=== PATIENT | male | born 1935 | race Caucasian/White ===

== ENCOUNTER 2017-01-07 10:52 | Inpatient (IN) | payer MEDICARE ==
[~2017-01-07] VITALS: Ht 172.7 cm; Wt 126.7 kg
[~2017-01-07 10:52] MED LIST: ACET-704 PO; ALBU2.5V14 NEB; ALPR0.5T6 PO; ATOR20TA58 PO; AZAT50TA PO; BISA10SU55 RC; CHOL10003 PO; Enoxaparin Sodium SQ; FINA5TAB4 PO; FURO40TA4 PO; HYDR50TA6 PO; INSU100I13 SQ; INSU100I17 SQ; INSU100I27 SQ; LEVO500T38 PO; LOPE1TAB4 PO; LOSA25TA PO; MAGN400O4 PO; MELO-150 PO; METF-620 PO; METF500T4 PO; MIRT15TA PO; NYST15PO9 TP; OMEP20CA9 PO; POTA10TA31 PO; POTA20TA4 PO; PROVENTIL HFA6.7 GM IH; TAMS0.4C2 PO; TRAM50TA PO; VERA180T49 PO; VERA240C2 PO
--- NOTE | 2017-01-07 11:22 | PHYS DOC ---
Past Medical History Past Medical History: Anxiety, Arthritis, CHF, Depression, Diabetes-Type II, GERD, High Cholesterol, Hypertension, Renal Disease Additional Past Medical Histor: PROSTATE, myasthenia gravis, murmur Past Surgical History: Cholecystectomy, Knee Replacement, Tonsillectomy Alcohol Use: None Drug Use: None Adult General Chief Complaint Chief Complaint: HYPERGLYCEMIA HPI HPI Patient is a 81 year old male presents emergency department by way of EMS. Patient is a residential patient in which they state that he's had an elevated blood sugar for the last week with nausea for the last 3 days. Patient states that he's been incontinent of urine for approximately one year. Patient denies any fever, chills or any nausea or vomiting. Patient does have a history of diabetes congested heart failure, hypertension and renal disease. Review of Systems Review of Systems Constitutional: Denies fever or chills [] Eyes: Denies change in visual acuity, redness, or eye pain [] HENT: Denies nasal congestion or sore throat [] Respiratory: Denies cough or shortness of breath [] Cardiovascular: No additional information not addressed in HPI [] GI: Denies abdominal pain, vomiting, bloody stools or diarrhea. C/o nausea : Denies dysuria or hematuria Musculoskeletal: Denies back pain or joint pain [] Integument: Denies rash or skin lesions [] Neurologic: Denies headache, focal weakness or sensory changes [] Endocrine: polyuria denies polydipsia [] Current Medications Current Medications Current Medications Medications (Trade) Dose Ordered Sig/Wendy Start Time Stop Time Status Last Admin Dose Admin Insulin Human Regular (NovoLIN R VIAL) 10 unit 1X ONCE 01/07/17 12:15 01/07/17 12:16 DC 01/07/17 12:37 10 UNIT Sodium Chloride 500 ml @ 500 mls/hr 1X ONCE 01/07/17 12:00 01/07/17 12:59 DC 01/07/17 12:06 500 MLS/HR Allergies Allergies Allergies Coded Allergies Type Severity Reaction Last Updated Verified Penicillins Allergy Intermediate rash 06/10/15 Yes I S O L A T I O N *CONTACT* Allergy Unknown 11/30/15 Yes Physical Exam Physical Exam Constitutional: Well developed, well nourished, no acute distress, non-toxic appearance. [] HENT: Normocephalic, atraumatic, bilateral external ears normal, oropharynx moist, no oral exudates, nose normal. [] Eyes: PERRLA, EOMI, conjunctiva normal, no discharge. [] Neck: Normal range of motion, no tenderness, supple, no stridor. [] Cardiovascular:Heart rate regular rhythm, no murmur [] Lungs & Thorax: Bilateral breath sounds clear to auscultation [] Abdomen: Bowel sounds hypoactive, soft, no tenderness, no masses, no pulsatile masses. [] Skin: Warm, dry, no erythema, no rash. [] Back: No tenderness Extremities: No tenderness, no cyanosis, no clubbing, ROM intact, no edema. [] Neurologic: Alert and oriented X 3, normal motor function, normal sensory function, no focal deficits noted. [] Psychologic: Affect normal, judgement normal, mood normal. [] Current Patient Data Vital Signs Vital Signs Date Time Temp Pulse Resp B/P (MAP) Pulse Ox O2 Delivery O2 Flow Rate FiO2 01/07/17 10:55 98.1 91 20 132/60 (84) 94 Room Air 98.1 Lab Values Laboratory Tests Test 01/07/17 11:00 01/07/17 11:56 White Blood Count 7.3 x10^3/uL (4.0-11.0) Red Blood Count 3.50 x10^6/uL (4.30-5.70) L Hemoglobin 11.9 g/dL (13.0-17.5) L Hematocrit 34.9 % (39.0-53.0) L Mean Corpuscular Volume 100 fL (79-100) Mean Corpuscular Hemoglobin 34 pg (25-35) Mean Corpuscular Hemoglobin Concent 34 g/dL (31-37) Red Cell Distribution Width 16.2 % (11.5-14.5) H Platelet Count 215 x10^3/uL (140-400) Neutrophils (%) (Auto) 71 % (31-73) Lymphocytes (%) (Auto) 20 % (24-48) L Monocytes (%) (Auto) 6 % (0-9) Eosinophils (%) (Auto) 3 % (0-3) Basophils (%) (Auto) 1 % (0-3) Neutrophils # (Auto) 5.2 x10^3uL (1.8-7.7) Lymphocytes # (Auto) 1.4 x10^3/uL (1.0-4.8) Monocytes # (Auto) 0.4 x10^3/uL (0.0-1.1) Eosinophils # (Auto) 0.2 x10^3/uL (0.0-0.7) Basophils # (Auto) 0.1 x10^3/uL (0.0-0.2) Sodium Level 135 mmol/L (136-145) L Potassium Level 3.5 mmol/L (3.5-5.1) Chloride Level 91 mmol/L (98-107) L Carbon Dioxide Level 32 mmol/L (21-32) Anion Gap 12 (6-14) Blood Urea Nitrogen 30 mg/dL (8-26) H Creatinine 1.5 mg/dL (0.7-1.3) H Estimated GFR (Cockcroft-Gault) 44.9 BUN/Creatinine Ratio 20 (6-20) Glucose Level 440 mg/dL (70-99) H Calcium Level 9.2 mg/dL (8.5-10.1) Total Bilirubin 0.5 mg/dL (0.2-1.0) Aspartate Amino Transferase (AST) 12 U/L (15-37) L Alanine Aminotransferase (ALT) 14 U/L (16-63) L Alkaline Phosphatase 78 U/L (46-116) Troponin I Quantitative < 0.017 ng/mL (0.000-0.055) HQ-Ogl-J-Type Natriuretic Peptide 190 pg/mL (0-449) Total Protein 7.3 g/dL (6.4-8.2) Albumin 3.1 g/dL (3.4-5.0) L Albumin/Globulin Ratio 0.7 (1.0-1.7) L Urine Collection Type Unknown Urine Color Yellow Urine Clarity Cloudy Urine pH 6.0 Urine Specific [place] 1.010 Urine Protein Negative mg/dL (NEG-TRACE) Urine Glucose (UA) 500 mg/dL (NEG) Urine Ketones (Stick) Negative mg/dL (NEG) Urine Blood Trace (NEG) Urine Nitrite Negative (NEG) Urine Bilirubin Negative (NEG) Urine Urobilinogen Dipstick 0.2 mg/dL (0.2 mg/dL) Urine Leukocyte Esterase Large (NEG) Urine RBC 0 /HPF (0-2) Urine WBC >40 /HPF (0-4) Urine Squamous Epithelial Cells Occ /LPF Urine Bacteria Few /HPF (0-FEW) Laboratory Tests 01/07/17 11:00 Laboratory Tests 01/07/17 11:00 EKG EKG EKG completed at 1118 heart rate 83 sinus rhythm noted no STEMI noted per Dr. Matamoros. [] Radiology/Procedures Radiology/Procedures [] Course & Med Decision Making Course & Med Decision Making Pertinent Labs and Imaging studies reviewed. (See chart for details) Spoke with Dr Sal for admission of this patient into the hospital. Orders completed. Patient will be admitted into the hospital for hyperglycemia secondary to UTI. Patient is elderly and needs to have glucoses monitored for compliance. [] Dragon Disclaimer Dragon Disclaimer This electronic medical record was generated, in whole or in part, using a voice recognition dictation system. Departure Departure Impression: Primary Impression: Hyperglycemia Additional Impression: UTI (urinary tract infection) Disposition: ADMITTED INPATIENT Admitting Physician: Charles Sal Condition: STABLE Referrals: JENNIFER LÓPEZ DO (PCP) Problem Qualifiers NERISSA MORGAN APRN January 07, 2017 11:22
[2017-01-07 11:26] LABS: BASO # 0.1 x10^3/uL (0.0-0.2); BASO % 1 % (0-3); EOS % 3 % (0-3); HEMATOCRIT 34.9 % (39.0-53.0); HEMOGLOBIN 11.9 g/dL (13.0-17.5); LYMPH # 1.4 x10^3/uL (1.0-4.8); LYMPH % 20 % (24-48); MEAN CORPUSCULAR HEMOGLOBIN 34 pg (25-35); MEAN CORPUSCULAR HGB CONC 34 g/dL (31-37); MEAN CORPUSCULAR VOLUME 100 fL (79-100); MONO % 6 % (0-9); NEUT % 71 % (31-73); PLATELET COUNT 215 x10^3/uL (140-400); RED CELL DISTRIBUTION WIDTH 16.2 % (11.5-14.5); WHITE BLOOD COUNT 7.3 x10^3/uL (4.0-11.0)
[2017-01-07 11:27] LABS: CALCIUM 9.2 mg/dL (8.5-10.1); CREATININE 1.5 mg/dL (0.7-1.3); GFR 44.9; POTASSIUM 3.5 mmol/L (3.5-5.1)
[2017-01-07 11:33] LABS: ALBUMIN 3.1 g/dL (3.4-5.0); ALBUMIN/GLOBULIN RATIO 0.7 (1.0-1.7); TOTAL BILIRUBIN 0.5 mg/dL (0.2-1.0); TOTAL PROTEIN 7.3 g/dL (6.4-8.2)
--- NOTE | 2017-01-07 11:43 | RAD ---
Portable chest, 01/07/2017: History: Nausea, lower leg swelling Comparison is made to a study from 05/18/2016. The heart is within normal limits in size. There is mild tortuosity of the thoracic aorta. The pulmonary vascularity is normal. No pulmonary infiltrates are seen. There is no evidence of pleural fluid. Moderate degenerative changes are present at both shoulders. IMPRESSION: No acute cardiopulmonary abnormality is detected.
[2017-01-07] MEDS ORDERED: IV NORMAL SALINE 500ML BAG 500 ML IV ONE (12:00)
--- NOTE | 2017-01-07 12:07 | EKG ---
[facility] [address] [place] [address] Test Date: 2017-01-07 Test Time: 11:18:26 Pat Name: ROSA ROBERSON Department: Room: Gender: M [employer]ible [employer] Ad[employer]er: : 1935 Requested By: NERISSA MORGAN Order Number: [id number] Reading MD: Yanet Pettit Measurements Intervals [place] Rate: 83 P: 22 [place]: 204 QRS: -14 QRSD: 92 T: 28 QT: 412 QTc: 485 Interpretive Statements SINUS RHYTHM LEFTWARD AXIS Electronically Signed On 01-10-2017 20:37:58 CDT by Yanet Pettit
[2017-01-07 12:15] LABS: BILIRUBIN,URINE NEGATIVE (NEG); GLUCOSE,URINE 500 mg/dL (NEG); NITRITE,URINE NEGATIVE (NEG); PROTEIN,URINE NEGATIVE (NEG-TRACE); UROBILINOGEN,URINE 0.2 mg/dL (0.2 mg/dL)
[2017-01-07] MEDS ORDERED: INSULIN REGULAR 100 UNIT/ML 10ML VIAL. SQ ONE (12:15)
[2017-01-07 12:29] LABS: RBC,URINE 0 /HPF (0-2); WBC,URINE >40 /HPF (0-4)
[2017-01-07 12:30] LABS: BACTERIA,URINE FEW /HPF (0-FEW); SQUAMOUS EPITHELIAL CELL,UR OCC /LPF
--- NOTE | 2017-01-07 12:45 | ACF ---
Admit Criteria Forms Admit Criteria Forms Admit Criteria Forms DIABETES Clinical Indications for Admission to Inpatient Care (Place 'X' for any and all applicable criteria): Admission is indicated by presence of ALL (if I & II) or ANY ONE (if III or IV) of the following (1)(2)(3)(4): []I. Diabetes is uncontrolled as indicated by ANY ONE of the following: [ ]a) Diabetic ketoacidosis as indicated by ALL of the following (8): [ ]i) Hyperglycemia (eg, plasma glucose greater than 200 mg/ dL (11.1 mmol/L)) [ ]ii) Acidosis (eg, arterial pH less than 7.30, serum bicarbonate level less than 15 mEq/L (mmol/L)) [ ]iii) Moderate ketonuria or ketonemia [ ]b) Hyperglycemic hyperosmolar state as indicated by ALL of the following(9)(10): [ ]i) Neurologic dysfunction (eg, stupor, coma, hemiparesis , seizure)(13) [ ]ii) Plasma glucose greater than 600 mg/dL (33.3 mmol/L) [ ]iii) Serum osmolality greater than 320 mOsm/kg (mmol/kg) [ ]c) Severe signs or symptoms secondary to hyperglycemia indicated by ANY ONE of the following: [ ]i) Altered mental status(10) [ ]ii) Significant hypovolemia or dehydration [ ]iii) Intractable nausea or vomiting [ ]iv) Unexplained fever or severe infection [X]v) Severe electrolyte abnormality (eg, hypokalemia, hyperkalemia, hypernatremia) []II. Management at other levels of care (Also use Diabetes: Observation Care as appropriate) is not feasible because of ANY ONE of the following: []a) Condition was not adequately corrected with treatment at other levels of care. [ ]b) Treatment at other levels of care is not appropriate because of condition severity (eg, hyperosmolar coma). [ ]III. Contraindications and/or Inappropriate clinical situations for Observational Care in patients with Diabetes, when ANY ONE of the following is required: [ ]a) Patient require specific diagnostic workup or therapeutic intervention 22 [ ]b) Patient with abnormal vital signs or altered mental status 23 [X]IV. General contraindications and/or Inappropriate clinical situations for Observational Care in patients with Diabetes, when ANY ONE of the following is required: [X]a) Prediction of prolongation of LOS based on ANY ONE of the following may be considered as a contraindication for observational care 2, 3, 4, 5, 6, 7, 8, 9, 10, 11 [X]i) Age > 65 yrs. [X]ii) Patient arriving by ambulance [ ]iii) Patient with high acuity [ ]iv) Patient requiring vital sign monitoring [ ]v) Patient on IV medication [ ]b) Systolic blood pressures 180mmHg 3,12 [ ]c) Patient with altered mental status including delirium and other alteration of consciousness, (3) [ ]d) Patient whose discharge disposition will be to a [place] [facility] home or rehabilitation home should not be managed in Emergency Department Observation Unit. CMS rule requires 3 days hospital stay before such placement.3,13 [ ]e) Patient with failure to thrive due to broad array of etiologies 3,16,17 [ ]f) Inability to ambulate 3,14 Extended stay beyond goal length of stay may be needed for(3)(20): [ ]a) Treatment of precipitating causes [ ]b) Development of hypoglycemia [ ]c) Complications of treatment [ ]d) Complications of decompensated diabetes (eg, acute gastric dilatation, persistent metabolic or neurologic derangement) [ ]e) Active Comorbidities [ ]f) Older patients( 65 years or older) The original [employer] content created by [employer] has been revised. The portions of the content which have been revised are identified through the use of italic text or in bold,and [facility] has neither reviewed nor approved the modified material. All other unmodified content is copyright [employer]. Please see references footnoted in the original [employer] edition 2016 STANISLAW MERINO January 07, 2017 12:44
[2017-01-07 14:48] VITALS: BP 150/81
[2017-01-07] MEDS ORDERED: DEXTROSE 50% 25 GM / 50ML DISP.SYRIN. IV PRN (16:00)
[2017-01-07] MEDS ORDERED: INSULIN ASPART 300 UNITS/3 ML INSULN.PEN SQ ONE ×2 (16:00→21:15)
[2017-01-07] MEDS ORDERED: FINA5TAB4 PO (16:34)
[2017-01-07] MEDS ORDERED: METO2.5T PO (16:37)
[2017-01-07] MEDS ORDERED: CHOL10003 PO (16:41)
[2017-01-07] MEDS ORDERED: FURO20TA3 PO (16:41)
[2017-01-07] MEDS ORDERED: ACET325T9 PO (16:46)
[2017-01-07] MEDS ORDERED: MENT3.5O TP (16:48)
[2017-01-07] MEDS ORDERED: NYST15CR2 TP (16:52)
--- NOTE | 2017-01-07 17:06 | HP ---
ADMIT DATE: 01/07/2017 CHIEF COMPLAINT: Hyperglycemia, weakness. HISTORY OF PRESENT ILLNESS: The patient is a pleasant elderly male well known to our service. He has hyperglycemia. He is a known diabetic, states he is on insulin at least 3 times a day at his facility. His sugars went to 500s when the ambulance arrived and brought him to the ER. His sugars are at 440, we have given him some insulin here. We are going to, maybe more of, admit him and give him IV fluids. He also has a UTI. We are going to begin him some antibiotics. PAST MEDICAL HISTORY: Noncompliance, diabetes, hypertension, hyperlipidemia, CHF, chronic renal insufficiency, and skin cancers. ALLERGIES: None. FAMILY HISTORY: Hypertension. SOCIAL HISTORY: Lives in a facility. He does not drink, smoke, or take drugs. MEDICATIONS: Reviewed. Please refer to the MRAD. REVIEW OF SYSTEMS: GENERAL: He complains of weakness. SKIN: No bruising, hair changes or rashes. EYES: No blurred, double or loss of vision. NOSE AND THROAT: No history of nosebleeds, hoarseness or sore throat. HEART: No history of palpitations, chest pain or shortness of breath on exertion. LUNGS: Denies cough, hemoptysis, wheezing or shortness of breath. GASTROINTESTINAL: Denies changes in appetite, nausea, vomiting, diarrhea or constipation. METABOLIC: He complains of hyperglycemia. GENITOURINARY: No history of frequency, urgency, hesitancy or nocturia. NEUROLOGIC: Denies history of numbness, tingling, tremor or weakness. PSYCHIATRIC: No history of panic, anxiety or depression. ENDOCRINE: No history of heat or cold intolerance, polyuria or polydipsia. EXTREMITIES: Denies muscle weakness, joint pain, pain on walking or stiffness. PHYSICAL EXAMINATION: VITAL SIGNS: Temperature afebrile, pulse 97, respirations 21, blood pressure 144/68. GENERAL: He is alert, cooperative, pleasant. HEART: Normal S1, S2. LUNGS: Clear. ABDOMEN: Soft, positive bowel sounds, slightly tender. EXTREMITIES: 1+ edema. SKIN: He has got multiple seborrheic keratoses and multiple actinic keratoses especially on the scalp, this is chronic for him. ENDOCRINE: No thyromegaly. LYMPHATICS: No cervical nodes. HEMATOPOIETIC: No bruising. LABORATORY DATA: Creatinine is 1.5, BUN is 30, glucose 440. UA shows large amount of leukocyte esterase. ASSESSMENT AND PLAN: Hyperglycemia and urinary tract infection. The patient has been admitted. We will start IV fluids and IV antibiotics. Continue his home medicines, sliding scale insulin. PT, OT, and fdc evaluation. PROGNOSIS: Guarded. JAVY OATES DO DR: BARRETT/son JOB#: [id number] / [id number]
[2017-01-07] MEDS: INSULIN ASPART 300 UNITS/3 ML INSULN.PEN SQ SCH (17:19)
[2017-01-07 19:50] VITALS: BP 129/68
[2017-01-07] MEDS ORDERED: ACETAMINOPHEN 325 MG TABLET. PO PRN (21:00)
[2017-01-07] MEDS ORDERED: BISACODYL 10 MG SUPP.RECT. RC PRN (21:00)
[2017-01-07] MEDS ORDERED: MAGNESIUM HYDROXIDE 2,400 MG/30 ML ORAL.SUSP. PO PRN (21:00)
[2017-01-07] MEDS ORDERED: NON FORMULARY ITEM (Menthol/Zinc Oxide (Calmoseptine Ointment) 3.5 GM) TP SCH (21:00)
[2017-01-07] MEDS ORDERED: ALBUTEROL SULFATE 2.5 MG/3 ML NEBU. NEB PRN (21:15)
[2017-01-07] MEDS ORDERED: LOPERAMIDE 2 MG CAPSULE PO PRN (21:15)
[2017-01-07] MEDS: ATORVASTATIN CALCIUM 20 MG TABLET PO SCH (21:36)
[2017-01-07] MEDS: MIRTAZAPINE 15 MG TABLET PO SCH (21:37)
[2017-01-07] MEDS: TAMSULOSIN 0.4 MG CAP.ER.24H. PO SCH (21:37)
[2017-01-07] MEDS: azaTHIOprine 50 MG TABLET PO SCH (21:37)
[2017-01-07] MEDS: NYSTATIN TOPICAL POWDER 15GM BOTTLE. TP SCH (21:38)
[2017-01-07] MEDS: NYSTATIN/TRIAMCIN TOPICAL CREAM 15GM TUBE. TP SCH (21:38)
[2017-01-07] MEDS: INSULIN DETEMIR 300 UNITS/3 ML INSULN.PEN. SQ SCH (21:43)
[2017-01-07 22:54] VITALS: BP 127/69
[2017-01-08] MEDS: ALPRAZolam 0.5 MG TABLET PO PRN ×2 (01:28→09:04)
[2017-01-08 03:16] VITALS: BP 130/66
[2017-01-08 05:26] LABS: BASO # 0.1 x10^3/uL (0.0-0.2); BASO % 1 % (0-3); EOS % 4 % (0-3); HEMATOCRIT 31.3 % (39.0-53.0); HEMOGLOBIN 10.5 g/dL (13.0-17.5); LYMPH # 1.4 x10^3/uL (1.0-4.8); LYMPH % 24 % (24-48); MEAN CORPUSCULAR HEMOGLOBIN 34 pg (25-35); MEAN CORPUSCULAR HGB CONC 33 g/dL (31-37); MEAN CORPUSCULAR VOLUME 101 fL (79-100); MONO % 6 % (0-9); NEUT % 66 % (31-73); PLATELET COUNT 173 x10^3/uL (140-400); RED BLOOD COUNT 3.11 x10^6/uL (4.30-5.70); RED CELL DISTRIBUTION WIDTH 16.1 % (11.5-14.5); WHITE BLOOD COUNT 5.9 x10^3/uL (4.0-11.0)
[2017-01-08 05:42] LABS: CALCIUM 8.6 mg/dL (8.5-10.1); CREATININE 0.9 mg/dL (0.7-1.3)
[2017-01-08 07:13] VITALS: BP 140/68
[2017-01-08] MEDS ORDERED: POTASSIUM CHLORIDE 20 MEQ TABLET.ER. PO ONE (07:45)
[2017-01-08] MEDS: INSULIN ASPART 300 UNITS/3 ML INSULN.PEN SQ SCH ×6 (07:50→16:13)
[2017-01-08] MEDS: LOSARTAN POTASSIUM 25 MG TABLET. PO SCH (08:27)
[2017-01-08] MEDS: VERAPAMIL SR 180 MG TABLET.ER. PO SCH (08:27)
[2017-01-08] MEDS: CHOLECALCIFEROL (VITAMIN D3) 1,000 UNIT TABLET PO SCH (08:28)
[2017-01-08] MEDS: MELOXICAM 7.5 MG TABLET PO SCH (08:29)
[2017-01-08] MEDS: FUROSEMIDE 40 MG TABLET. PO SCH (08:30)
[2017-01-08] MEDS: FINASTERIDE 5 MG TABLET. PO SCH (08:30)
[2017-01-08] MEDS: metOLazone 2.5 MG TABLET PO SCH (08:30)
[2017-01-08] MEDS: NYSTATIN TOPICAL POWDER 15GM BOTTLE. TP SCH ×2 (08:32→22:14)
[2017-01-08] MEDS: POTASSIUM CHLORIDE 20 MEQ TABLET.ER. PO SCH (08:32)
[2017-01-08] MEDS: NYSTATIN/TRIAMCIN TOPICAL CREAM 15GM TUBE. TP SCH ×2 (08:32→21:00)
[2017-01-08] MEDS: azaTHIOprine 50 MG TABLET PO SCH ×2 (08:34→22:15)
[2017-01-08] MEDS: levOFLOXacin PER PHARMACY. MC SCH ×2 (09:00→09:07)
--- NOTE | 2017-01-08 10:34 | PDOC ---
PROGRESS NOTES Chief Complaint Chief Complaint Hyperglycemia UTI Diabetes Hypertension Hyperlipidemia CHF Chronic renal insufficiency H/o skin cancers History of Present Illness History of Present Illness patient lying in bed in no acute distress discussed care with nurse about discharge placement Vitals Vitals Vital Signs Date Time Temp Pulse Resp B/P (MAP) Pulse Ox O2 Delivery O2 Flow Rate FiO2 01/08/17 08:27 70 140/68 01/08/17 08:00 Room Air 01/08/17 07:13 97.7 18 92 97.7 Physical Exam General: Alert, No acute distress Heart: Regular rate, Normal S1, Normal S2 Lungs: Clear, Other (no wheezing) Abdomen: Normal bowel sounds, Soft Extremities: No clubbing, No cyanosis Skin: No rashes, No breakdown Labs LABS Laboratory Tests Test 01/07/17 11:00 01/07/17 11:56 01/07/17 13:31 01/07/17 14:45 White Blood Count 7.3 x10^3/uL (4.0-11.0) Red Blood Count 3.50 x10^6/uL (4.30-5.70) Hemoglobin 11.9 g/dL (13.0-17.5) Hematocrit 34.9 % (39.0-53.0) Mean Corpuscular Volume 100 fL (79-100) Mean Corpuscular Hemoglobin 34 pg (25-35) Mean Corpuscular Hemoglobin Concent 34 g/dL (31-37) Red Cell Distribution Width 16.2 % (11.5-14.5) Platelet Count 215 x10^3/uL (140-400) Neutrophils (%) (Auto) 71 % (31-73) Lymphocytes (%) (Auto) 20 % (24-48) Monocytes (%) (Auto) 6 % (0-9) Eosinophils (%) (Auto) 3 % (0-3) Basophils (%) (Auto) 1 % (0-3) Neutrophils # (Auto) 5.2 x10^3uL (1.8-7.7) Lymphocytes # (Auto) 1.4 x10^3/uL (1.0-4.8) Monocytes # (Auto) 0.4 x10^3/uL (0.0-1.1) Eosinophils # (Auto) 0.2 x10^3/uL (0.0-0.7) Basophils # (Auto) 0.1 x10^3/uL (0.0-0.2) Sodium Level 135 mmol/L (136-145) Potassium Level 3.5 mmol/L (3.5-5.1) Chloride Level 91 mmol/L (98-107) Carbon Dioxide Level 32 mmol/L (21-32) Anion Gap 12 (6-14) Blood Urea Nitrogen 30 mg/dL (8-26) Creatinine 1.5 mg/dL (0.7-1.3) Estimated GFR (Cockcroft-Gault) 44.9 BUN/Creatinine Ratio 20 (6-20) Glucose Level 440 mg/dL (70-99) Calcium Level 9.2 mg/dL (8.5-10.1) Total Bilirubin 0.5 mg/dL (0.2-1.0) Aspartate Amino Transf (AST/SGOT) 12 U/L (15-37) Alanine Aminotransferase (ALT/SGPT) 14 U/L (16-63) Alkaline Phosphatase 78 U/L (46-116) Troponin I Quantitative < 0.017 ng/mL (0.000-0.055) FY-Zyh-V-Type Natriuretic Peptide 190 pg/mL (0-449) Total Protein 7.3 g/dL (6.4-8.2) Albumin 3.1 g/dL (3.4-5.0) Albumin/Globulin Ratio 0.7 (1.0-1.7) Urine Collection Type Unknown Urine Color Yellow Urine Clarity Cloudy Urine pH 6.0 Urine Specific [place] 1.010 Urine Protein Negative mg/dL (NEG-TRACE) Urine Glucose (UA) 500 mg/dL (NEG) Urine Ketones (Stick) Negative mg/dL (NEG) Urine Blood Trace (NEG) Urine Nitrite Negative (NEG) Urine Bilirubin Negative (NEG) Urine Urobilinogen Dipstick 0.2 mg/dL (0.2 mg/dL) Urine Leukocyte Esterase Large (NEG) Urine RBC 0 /HPF (0-2) Urine WBC >40 /HPF (0-4) Urine Squamous Epithelial Cells Occ /LPF Urine Bacteria Few /HPF (0-FEW) Glucose (Fingerstick) 357 mg/dL (70-99) Nasal Screen MRSA (PCR) Negative (Negative) Test 01/07/17 15:58 01/07/17 16:46 01/07/17 20:25 01/08/17 01:39 Glucose (Fingerstick) 342 mg/dL (70-99) 342 mg/dL (70-99) 293 mg/dL (70-99) 195 mg/dL (70-99) Test 01/08/17 04:55 01/08/17 07:15 White Blood Count 5.9 x10^3/uL (4.0-11.0) Red Blood Count 3.11 x10^6/uL (4.30-5.70) Hemoglobin 10.5 g/dL (13.0-17.5) Hematocrit 31.3 % (39.0-53.0) Mean Corpuscular Volume 101 fL (79-100) Mean Corpuscular Hemoglobin 34 pg (25-35) Mean Corpuscular Hemoglobin Concent 33 g/dL (31-37) Red Cell Distribution Width 16.1 % (11.5-14.5) Platelet Count 173 x10^3/uL (140-400) Neutrophils (%) (Auto) 66 % (31-73) Lymphocytes (%) (Auto) 24 % (24-48) Monocytes (%) (Auto) 6 % (0-9) Eosinophils (%) (Auto) 4 % (0-3) Basophils (%) (Auto) 1 % (0-3) Neutrophils # (Auto) 3.9 x10^3uL (1.8-7.7) Lymphocytes # (Auto) 1.4 x10^3/uL (1.0-4.8) Monocytes # (Auto) 0.3 x10^3/uL (0.0-1.1) Eosinophils # (Auto) 0.2 x10^3/uL (0.0-0.7) Basophils # (Auto) 0.1 x10^3/uL (0.0-0.2) Sodium Level 139 mmol/L (136-145) Potassium Level 3.0 mmol/L (3.5-5.1) Chloride Level 96 mmol/L (98-107) Carbon Dioxide Level 37 mmol/L (21-32) Anion Gap 6 (6-14) Blood Urea Nitrogen 22 mg/dL (8-26) Creatinine 0.9 mg/dL (0.7-1.3) Estimated GFR (Cockcroft-Gault) 81.0 Glucose Level 192 mg/dL (70-99) Calcium Level 8.6 mg/dL (8.5-10.1) Glucose (Fingerstick) 226 mg/dL (70-99) Review of Systems Review of Systems General: denies weakness GI: denies N/V/D/C Assessment and Plan Assessmemt and Plan Problems Medical Problems: (1) Hyperglycemia Status: Acute (2) UTI (urinary tract infection) Status: Acute Hyperglycemia UTI Diabetes Hypertension Hyperlipidemia CHF Chronic renal insufficiency H/o skin cancers Plan: -Continue IVF -Continue SSI, glucose 192 this morning -Continue Levaquin for UTI -Urine culture pending -SNU eval pending, discussed care with nurse who discussed with family Problems: Comment Review of Relevant I have reviewed the following items zuly (where applicable) has been applied. Labs Laboratory Tests Test 01/07/17 11:00 01/07/17 11:56 01/07/17 13:31 01/07/17 14:45 White Blood Count 7.3 x10^3/uL (4.0-11.0) Red Blood Count 3.50 x10^6/uL (4.30-5.70) Hemoglobin 11.9 g/dL (13.0-17.5) Hematocrit 34.9 % (39.0-53.0) Mean Corpuscular Volume 100 fL (79-100) Mean Corpuscular Hemoglobin 34 pg (25-35) Mean Corpuscular Hemoglobin Concent 34 g/dL (31-37) Red Cell Distribution Width 16.2 % (11.5-14.5) Platelet Count 215 x10^3/uL (140-400) Neutrophils (%) (Auto) 71 % (31-73) Lymphocytes (%) (Auto) 20 % (24-48) Monocytes (%) (Auto) 6 % (0-9) Eosinophils (%) (Auto) 3 % (0-3) Basophils (%) (Auto) 1 % (0-3) Neutrophils # (Auto) 5.2 x10^3uL (1.8-7.7) Lymphocytes # (Auto) 1.4 x10^3/uL (1.0-4.8) Monocytes # (Auto) 0.4 x10^3/uL (0.0-1.1) Eosinophils # (Auto) 0.2 x10^3/uL (0.0-0.7) Basophils # (Auto) 0.1 x10^3/uL (0.0-0.2) Sodium Level 135 mmol/L (136-145) Potassium Level 3.5 mmol/L (3.5-5.1) Chloride Level 91 mmol/L (98-107) Carbon Dioxide Level 32 mmol/L (21-32) Anion Gap 12 (6-14) Blood Urea Nitrogen 30 mg/dL (8-26) Creatinine 1.5 mg/dL (0.7-1.3) Estimated GFR (Cockcroft-Gault) 44.9 BUN/Creatinine Ratio 20 (6-20) Glucose Level 440 mg/dL (70-99) Calcium Level 9.2 mg/dL (8.5-10.1) Total Bilirubin 0.5 mg/dL (0.2-1.0) Aspartate Amino Transf (AST/SGOT) 12 U/L (15-37) Alanine Aminotransferase (ALT/SGPT) 14 U/L (16-63) Alkaline Phosphatase 78 U/L (46-116) Troponin I Quantitative < 0.017 ng/mL (0.000-0.055) CS-Uza-D-Type Natriuretic Peptide 190 pg/mL (0-449) Total Protein 7.3 g/dL (6.4-8.2) Albumin 3.1 g/dL (3.4-5.0) Albumin/Globulin Ratio 0.7 (1.0-1.7) Urine Collection Type Unknown Urine Color Yellow Urine Clarity Cloudy Urine pH 6.0 Urine Specific [place] 1.010 Urine Protein Negative mg/dL (NEG-TRACE) Urine Glucose (UA) 500 mg/dL (NEG) Urine Ketones (Stick) Negative mg/dL (NEG) Urine Blood Trace (NEG) Urine Nitrite Negative (NEG) Urine Bilirubin Negative (NEG) Urine Urobilinogen Dipstick 0.2 mg/dL (0.2 mg/dL) Urine Leukocyte Esterase Large (NEG) Urine RBC 0 /HPF (0-2) Urine WBC >40 /HPF (0-4) Urine Squamous Epithelial Cells Occ /LPF Urine Bacteria Few /HPF (0-FEW) Glucose (Fingerstick) 357 mg/dL (70-99) Nasal Screen MRSA (PCR) Negative (Negative) Test 01/07/17 15:58 01/07/17 16:46 01/07/17 20:25 01/08/17 01:39 Glucose (Fingerstick) 342 mg/dL (70-99) 342 mg/dL (70-99) 293 mg/dL (70-99) 195 mg/dL (70-99) Test 01/08/17 04:55 01/08/17 07:15 White Blood Count 5.9 x10^3/uL (4.0-11.0) Red Blood Count 3.11 x10^6/uL (4.30-5.70) Hemoglobin 10.5 g/dL (13.0-17.5) Hematocrit 31.3 % (39.0-53.0) Mean Corpuscular Volume 101 fL (79-100) Mean Corpuscular Hemoglobin 34 pg (25-35) Mean Corpuscular Hemoglobin Concent 33 g/dL (31-37) Red Cell Distribution Width 16.1 % (11.5-14.5) Platelet Count 173 x10^3/uL (140-400) Neutrophils (%) (Auto) 66 % (31-73) Lymphocytes (%) (Auto) 24 % (24-48) Monocytes (%) (Auto) 6 % (0-9) Eosinophils (%) (Auto) 4 % (0-3) Basophils (%) (Auto) 1 % (0-3) Neutrophils # (Auto) 3.9 x10^3uL (1.8-7.7) Lymphocytes # (Auto) 1.4 x10^3/uL (1.0-4.8) Monocytes # (Auto) 0.3 x10^3/uL (0.0-1.1) Eosinophils # (Auto) 0.2 x10^3/uL (0.0-0.7) Basophils # (Auto) 0.1 x10^3/uL (0.0-0.2) Sodium Level 139 mmol/L (136-145) Potassium Level 3.0 mmol/L (3.5-5.1) Chloride Level 96 mmol/L (98-107) Carbon Dioxide Level 37 mmol/L (21-32) Anion Gap 6 (6-14) Blood Urea Nitrogen 22 mg/dL (8-26) Creatinine 0.9 mg/dL (0.7-1.3) Estimated GFR (Cockcroft-Gault) 81.0 Glucose Level 192 mg/dL (70-99) Calcium Level 8.6 mg/dL (8.5-10.1) Glucose (Fingerstick) 226 mg/dL (70-99) Laboratory Tests Test 01/07/17 11:00 01/07/17 11:56 01/07/17 13:31 01/07/17 14:45 White Blood Count 7.3 x10^3/uL (4.0-11.0) Red Blood Count 3.50 x10^6/uL (4.30-5.70) Hemoglobin 11.9 g/dL (13.0-17.5) Hematocrit 34.9 % (39.0-53.0) Mean Corpuscular Volume 100 fL (79-100) Mean Corpuscular Hemoglobin 34 pg (25-35) Mean Corpuscular Hemoglobin Concent 34 g/dL (31-37) Red Cell Distribution Width 16.2 % (11.5-14.5) Platelet Count 215 x10^3/uL (140-400) Neutrophils (%) (Auto) 71 % (31-73) Lymphocytes (%) (Auto) 20 % (24-48) Monocytes (%) (Auto) 6 % (0-9) Eosinophils (%) (Auto) 3 % (0-3) Basophils (%) (Auto) 1 % (0-3) Neutrophils # (Auto) 5.2 x10^3uL (1.8-7.7) Lymphocytes # (Auto) 1.4 x10^3/uL (1.0-4.8) Monocytes # (Auto) 0.4 x10^3/uL (0.0-1.1) Eosinophils # (Auto) 0.2 x10^3/uL (0.0-0.7) Basophils # (Auto) 0.1 x10^3/uL (0.0-0.2) Sodium Level 135 mmol/L (136-145) Potassium Level 3.5 mmol/L (3.5-5.1) Chloride Level 91 mmol/L (98-107) Carbon Dioxide Level 32 mmol/L (21-32) Anion Gap 12 (6-14) Blood Urea Nitrogen 30 mg/dL (8-26) Creatinine 1.5 mg/dL (0.7-1.3) Estimated GFR (Cockcroft-Gault) 44.9 BUN/Creatinine Ratio 20 (6-20) Glucose Level 440 mg/dL (70-99) Calcium Level 9.2 mg/dL (8.5-10.1) Total Bilirubin 0.5 mg/dL (0.2-1.0) Aspartate Amino Transf (AST/SGOT) 12 U/L (15-37) Alanine Aminotransferase (ALT/SGPT) 14 U/L (16-63) Alkaline Phosphatase 78 U/L (46-116) Troponin I Quantitative < 0.017 ng/mL (0.000-0.055) VZ-Ujr-M-Type Natriuretic Peptide 190 pg/mL (0-449) Total Protein 7.3 g/dL (6.4-8.2) Albumin 3.1 g/dL (3.4-5.0) Albumin/Globulin Ratio 0.7 (1.0-1.7) Urine Collection Type Unknown Urine Color Yellow Urine Clarity Cloudy Urine pH 6.0 Urine Specific [place] 1.010 Urine Protein Negative mg/dL (NEG-TRACE) Urine Glucose (UA) 500 mg/dL (NEG) Urine Ketones (Stick) Negative mg/dL (NEG) Urine Blood Trace (NEG) Urine Nitrite Negative (NEG) Urine Bilirubin Negative (NEG) Urine Urobilinogen Dipstick 0.2 mg/dL (0.2 mg/dL) Urine Leukocyte Esterase Large (NEG) Urine RBC 0 /HPF (0-2) Urine WBC >40 /HPF (0-4) Urine Squamous Epithelial Cells Occ /LPF Urine Bacteria Few /HPF (0-FEW) Glucose (Fingerstick) 357 mg/dL (70-99) Nasal Screen MRSA (PCR) Negative (Negative) Test 01/07/17 15:58 01/07/17 16:46 01/07/17 20:25 01/08/17 01:39 Glucose (Fingerstick) 342 mg/dL (70-99) 342 mg/dL (70-99) 293 mg/dL (70-99) 195 mg/dL (70-99) Test 01/08/17 04:55 01/08/17 07:15 White Blood Count 5.9 x10^3/uL (4.0-11.0) Red Blood Count 3.11 x10^6/uL (4.30-5.70) Hemoglobin 10.5 g/dL (13.0-17.5) Hematocrit 31.3 % (39.0-53.0) Mean Corpuscular Volume 101 fL (79-100) Mean Corpuscular Hemoglobin 34 pg (25-35) Mean Corpuscular Hemoglobin Concent 33 g/dL (31-37) Red Cell Distribution Width 16.1 % (11.5-14.5) Platelet Count 173 x10^3/uL (140-400) Neutrophils (%) (Auto) 66 % (31-73) Lymphocytes (%) (Auto) 24 % (24-48) Monocytes (%) (Auto) 6 % (0-9) Eosinophils (%) (Auto) 4 % (0-3) Basophils (%) (Auto) 1 % (0-3) Neutrophils # (Auto) 3.9 x10^3uL (1.8-7.7) Lymphocytes # (Auto) 1.4 x10^3/uL (1.0-4.8) Monocytes # (Auto) 0.3 x10^3/uL (0.0-1.1) Eosinophils # (Auto) 0.2 x10^3/uL (0.0-0.7) Basophils # (Auto) 0.1 x10^3/uL (0.0-0.2) Sodium Level 139 mmol/L (136-145) Potassium Level 3.0 mmol/L (3.5-5.1) Chloride Level 96 mmol/L (98-107) Carbon Dioxide Level 37 mmol/L (21-32) Anion Gap 6 (6-14) Blood Urea Nitrogen 22 mg/dL (8-26) Creatinine 0.9 mg/dL (0.7-1.3) Estimated GFR (Cockcroft-Gault) 81.0 Glucose Level 192 mg/dL (70-99) Calcium Level 8.6 mg/dL (8.5-10.1) Glucose (Fingerstick) 226 mg/dL (70-99) Medications Current Medications Sodium Chloride 500 ml @ 500 mls/hr 1X ONCE IV Last administered on t 12:06; Start 01/07/17 at 12:00; Stop 01/07/17 at 12:59; Status DC Insulin Human Regular (NovoLIN R VIAL) 10 unit 1X ONCE SQ Last administered on 01/07/17 12:37; Start 01/07/17 at 12:15; Stop 01/07/17 at 12:16; Status DC Levofloxacin/ Dextrose (Levaquin Per Pharmacy) 1 each DAILY MC ; Start 01/07/17 at 13:15; Stop 01/12/17 at 10:00 Levofloxacin/ Dextrose 50 ml @ 100 mls/hr Q24H IV Last administered on 13:24; Start 01/07/17 at 14:00 Insulin Aspart (NovoLOG) 15 units 1X ONCE SQ Last administered on 01/07/17 16 :06; Start 01/07/17 at 16:00; Stop 01/07/17 at 16:01; Status DC Insulin Aspart (NovoLOG) 0-7 UNITS TIDWMEALS SQ Last administered on 01/07/17 17:19; Start 01/07/17 at 17:00 Dextrose (Dextrose 50%-Water Syringe) 12.5 gm PRN Q15MIN PRN IV SEE COMMENTS; Start 01/07/17 at 16:00 Acetaminophen (Tylenol) 650 mg PRN Q6HRS PRN PO PAIN Last administered on 09:04; Start 01/07/17 at 21:00 Alprazolam (Xanax) 0.5 mg PRN BID PRN PO ANXIETY / AGITATION Last administered on 01/08/17 09:04; Start 01/07/17 at 21:00 Atorvastatin Calcium (Lipitor) 20 mg HS PO Last administered on 01/07/17 21:36 ; Start 01/07/17 at 21:30 Azathioprine (Imuran) 100 mg BID PO Last administered on 01/08/17 08:34; Start 01/07/17 at 21:30 Bisacodyl (Dulcolax Supp) 10 mg PRN DAILY PRN RC CONSTIPATION; Start 01/07/17 at 21:00 Vitamin D (Vitamin D3) 1,000 unit DAILY PO Last administered on 01/08/17 08:28 ; Start 01/08/17 at 09:00 Finasteride (Proscar) 5 mg DAILY PO Last administered on 01/08/17 08:30; Start 01/08/17 at 09:00 Furosemide (Lasix) 20 mg DAILY16 PO ; Start 01/08/17 at 16:00 Furosemide (Lasix) 40 mg DAILY PO Last administered on 01/08/17 08:30; Start 01/08/17 at 09:00 Insulin Aspart (NovoLOG) 35 units TIDWMEALS SQ Last administered on 01/08/17 07:50; Start 01/08/17 at 08:00 Insulin Detemir (Levemir) 65 units HS SQ Last administered on 01/07/17 21:43; Start 01/07/17 at 21:30 Losartan Potassium (Cozaar) 25 mg DAILY PO Last administered on 01/08/17 08:27 ; Start 01/08/17 at 09:00 Magnesium Hydroxide (Milk Of Magnesia) 2,400 mg PRN DAILY PRN PO CONSTIPATION; Start 01/07/17 at 21:00 Metformin HCl (Glucophage) 1,000 mg BIDWMEALS PO Last administered on 08:28; Start 01/08/17 at 08:00 Metolazone (Zaroxolyn) 2.5 mg DAILY PO Last administered on 01/08/17 08:30; Start 01/08/17 at 09:00 Mirtazapine (Remeron) 15 mg QHS PO Last administered on 01/07/17 21:37; Start 01/07/17 at 21:30 Nystatin (Nystop) 1 bridgette BID TP Last administered on 01/08/17 08:32; Start at 21:30 Nystatin/ Triamcinolone Acetonide (Mycolog Ii) 1 bridgette BID TP Last administered on 01/08/17 08:32; Start 01/07/17 at 21:30 Potassium Chloride (Klor-Con) 20 meq DAILYWBKFT PO Last administered on 08:32; Start 01/08/17 at 08:00 Tamsulosin HCl (Flomax) 0.4 mg HS PO Last administered on 01/07/17 21:37; Start 01/07/17 at 21:30 Verapamil HCl (Calan Sr) 360 mg DAILY PO Last administered on 01/08/17 08:27; Start 01/08/17 at 09:00 Albuterol Sulfate (Ventolin Neb Soln) 2.5 mg PRN Q4HRS PRN NEB WHEEZING; Start 01/07/17 at 21:15 Loperamide HCl (Imodium) 2 mg PRN Q15MIN PRN PO DIARRHEA; Start 01/07/17 at 21: 15 Meloxicam (Mobic) 15 mg DAILY PO Last administered on 01/08/17 08:29; Start at 09:00 Non-Formulary Medication 3.5 gm BID TP ; Start 01/07/17 at 21:00; Status UNV Insulin Aspart (NovoLOG) 10 units 1X ONCE SQ Last administered on 01/07/17 21 :11; Start 01/07/17 at 21:15; Stop 01/07/17 at 21:16; Status DC Potassium Chloride (Klor-Con) 40 meq 1X ONCE PO Last administered on 08:28; Start 01/08/17 at 07:45; Stop 01/08/17 at 07:46; Status DC Active Scripts Active Verapamil Er (Verapamil Hcl) 180 Mg Tablet.er 360 Mg PO DAILY Cozaar (Losartan Potassium) 25 Mg Tablet 25 Mg PO DAILY Klor-Con M20 (Potassium Chloride) 20 Meq Tab.er.prt 20 Meq PO DAILYWBKFT Furosemide 40 Mg Tablet 40 Mg PO DAILY Reported Nystatin-Triamcinolone Cream (Nystatin/Triamcin) 15 Gm Cream..g. 1 Bridget[place] TP BID Calmoseptine Ointment (Menthol/Zinc Oxide) 3.5 Gm Oint.pack 3.5 Gm TP BID Tylenol (Acetaminophen) 325 Mg Tablet 650 Mg PO Q6HRS PRN Furosemide 20 Mg Tablet 1 Tab PO DAILY16 Metolazone 2.5 Mg Tablet 2.5 Mg PO DAILY Novolog Flexpen (Insulin Aspart) 100 Unit/1 Ml Insuln.pen 35 Unit SQ TIDWMEALS Alprazolam 0.5 Mg Tablet 0.5 Mg PO BID PRN Vitamin D3 (Cholecalciferol (Vitamin D3)) 1,000 Unit Tablet 1,000 Unit PO DAILY Proventil Hfa Inhaler (Albuterol Sulfate) 6.7 Gm Hfa.aer.ad 2 Puff IH PRN Q4HRS PRN Imodium Multi-Symptom Rel Cplt (Loperamide Hcl/Simethicone) 1 Each Tablet 1 Each PO PRN BID PRN Metformin Hcl 1,000 Mg Tablet 1 Tab PO BID Azathioprine 50 Mg Tablet 100 Mg PO BID Remeron (Mirtazapine) 15 Mg Tablet 1 Tab PO QHS Meloxicam 15 Mg Tablet 1 Tab PO DAILY Dulcolax (Bisacodyl) 10 Mg Supp.rect 10 Mg RC PRN DAILY PRN Milk Of Magnesia (Magnesium Hydroxide) 400 Mg/5 Ml Oral.susp 30 Ml PO PRN DAILY PRN Nystatin 15 Gm Powder 1 Bridget[place] TP BID Levemir Flextouch (Insulin Detemir) 100 Unit/1 Ml Insuln.pen 65 Unit SQ HS Tamsulosin Hcl 0.4 Mg Cap.er.24h 0.4 Mg PO HS Atorvastatin Calcium 20 Mg Tablet 20 Mg PO HS Finasteride 5 Mg Tablet 1 Tab PO DAILY Vitals/I & O Vital Sign - Last 24 Hours 01/07/17 01/07/17 01/07/17 01/07/17 10:55 11:30 12:00 12:30 Temp 98.1 98.1 Pulse 91 82 84 78 Resp 20 20 20 20 B/P (MAP) 132/60 (84) 120/63 (82) 156/63 (94) 130/60 (83) Pulse Ox 94 95 95 95 O2 Delivery Room Air Room Air Room Air Room Air 01/07/17 01/07/17 01/07/17 01/07/17 13:00 13:30 14:00 14:48 Temp 97.6 97.6 Pulse 80 84 82 84 Resp 20 20 20 16 B/P (MAP) 142/63 (89) 121/57 (78) 124/62 (82) 150/81 (104) Pulse Ox 94 96 95 95 O2 Delivery Room Air Room Air Room Air Room Air 01/07/17 01/07/17 01/07/17 01/07/17 15:00 19:50 20:00 22:54 Temp 97.5 94.6 97.5 94.6 Pulse 76 71 Resp 18 17 B/P (MAP) 129/68 (88) 127/69 (88) Pulse Ox 91 94 O2 Delivery Room Air Room Air Room Air Room Air 01/08/17 01/08/17 01/08/17 01/08/17 03:16 07:13 08:00 08:27 Temp 97.8 97.7 97.8 97.7 Pulse 72 70 70 Resp 20 18 B/P (MAP) 130/66 (87) 140/68 (92) 140/68 Pulse Ox 93 92 O2 Delivery Room Air Room Air Room Air 01/08/17 08:27 Pulse 70 B/P (MAP) 140/68 Intake and Output 01/07/17 01/07/17 01/08/17 15:00 23:00 07:00 Intake Total 550 ml 720 ml 300 ml Balance 550 ml 720 ml 300 ml JAVY OATES III DO January 08, 2017 10:34
[2017-01-08 10:42] VITALS: BP 137/59
[2017-01-08 14:56] VITALS: BP 104/57
[2017-01-08] MEDS: FUROSEMIDE 20 MG TABLET PO SCH (15:49)
[2017-01-08 19:00] VITALS: BP 110/54
[2017-01-08] MEDS: ATORVASTATIN CALCIUM 20 MG TABLET PO SCH (22:15)
[2017-01-08] MEDS: MIRTAZAPINE 15 MG TABLET PO SCH (22:15)
[2017-01-08] MEDS: TAMSULOSIN 0.4 MG CAP.ER.24H. PO SCH (22:15)
[2017-01-08] MEDS: INSULIN DETEMIR 300 UNITS/3 ML INSULN.PEN. SQ SCH (22:20)
[2017-01-08 23:04] VITALS: BP 117/65
[2017-01-09 03:38] VITALS: BP 114/64
[2017-01-09 04:39] LABS: BASO % 1 % (0-3); EOS % 4 % (0-3); HEMATOCRIT 30.9 % (39.0-53.0); LYMPH # 1.3 x10^3/uL (1.0-4.8); LYMPH % 22 % (24-48); MEAN CORPUSCULAR HEMOGLOBIN 35 pg (25-35); MEAN CORPUSCULAR HGB CONC 36 g/dL (31-37); MEAN CORPUSCULAR VOLUME 98 fL (79-100); MONO % 6 % (0-9); NEUT % 67 % (31-73); PLATELET COUNT 178 x10^3/uL (140-400); RED BLOOD COUNT 3.15 x10^6/uL (4.30-5.70); RED CELL DISTRIBUTION WIDTH 16.4 % (11.5-14.5)
[2017-01-09 04:55] LABS: CALCIUM 8.7 mg/dL (8.5-10.1); CREATININE 1.1 mg/dL (0.7-1.3); GFR 64.2; POTASSIUM 3.2 mmol/L (3.5-5.1)
[2017-01-09] MEDS ORDERED: POTASSIUM CHLORIDE 20 MEQ TABLET.ER. PO ONE (05:45)
[2017-01-09 07:00] VITALS: BP 140/67
[2017-01-09] MEDS: INSULIN ASPART 300 UNITS/3 ML INSULN.PEN SQ SCH ×5 (08:00→17:28)
--- NOTE | 2017-01-09 08:55 | PDOC ---
PROGRESS NOTES Chief Complaint Chief Complaint Hyperglycemia UTI Diabetes Hypertension Hyperlipidemia CHF Chronic renal insufficiency H/o skin cancers History of Present Illness History of Present Illness patient lying in bed in no acute distress discussed skin lesions on scalp, does not recall any lesions being excised discussed derm consult, patient agreed Vitals Vitals Vital Signs Date Time Temp Pulse Resp B/P (MAP) Pulse Ox O2 Delivery O2 Flow Rate FiO2 01/09/17 07:00 98.0 69 18 140/67 (91) 98 Room Air 98.0 Physical Exam General: Alert, No acute distress Heart: Regular rate, Normal S1, Normal S2 Lungs: Clear, Other (no wheezing) Abdomen: Normal bowel sounds, Soft Extremities: No clubbing, No cyanosis Skin: No rashes, No breakdown, Other (several scaly and erythematous lesions on scalp) Labs LABS Laboratory Tests Test 01/08/17 11:23 01/08/17 16:12 01/08/17 21:00 01/09/17 03:13 Glucose (Fingerstick) 166 mg/dL (70-99) 112 mg/dL (70-99) 363 mg/dL (70-99) White Blood Count 6.0 x10^3/uL (4.0-11.0) Red Blood Count 3.15 x10^6/uL (4.30-5.70) Hemoglobin 11.0 g/dL (13.0-17.5) Hematocrit 30.9 % (39.0-53.0) Mean Corpuscular Volume 98 fL (79-100) Mean Corpuscular Hemoglobin 35 pg (25-35) Mean Corpuscular Hemoglobin Concent 36 g/dL (31-37) Red Cell Distribution Width 16.4 % (11.5-14.5) Platelet Count 178 x10^3/uL (140-400) Neutrophils (%) (Auto) 67 % (31-73) Lymphocytes (%) (Auto) 22 % (24-48) Monocytes (%) (Auto) 6 % (0-9) Eosinophils (%) (Auto) 4 % (0-3) Basophils (%) (Auto) 1 % (0-3) Neutrophils # (Auto) 4.0 x10^3uL (1.8-7.7) Lymphocytes # (Auto) 1.3 x10^3/uL (1.0-4.8) Monocytes # (Auto) 0.4 x10^3/uL (0.0-1.1) Eosinophils # (Auto) 0.2 x10^3/uL (0.0-0.7) Basophils # (Auto) 0.0 x10^3/uL (0.0-0.2) Sodium Level 137 mmol/L (136-145) Potassium Level 3.2 mmol/L (3.5-5.1) Chloride Level 94 mmol/L (98-107) Carbon Dioxide Level 35 mmol/L (21-32) Anion Gap 8 (6-14) Blood Urea Nitrogen 25 mg/dL (8-26) Creatinine 1.1 mg/dL (0.7-1.3) Estimated GFR (Cockcroft-Gault) 64.2 Glucose Level 211 mg/dL (70-99) Calcium Level 8.7 mg/dL (8.5-10.1) Test 01/09/17 07:57 Glucose (Fingerstick) 224 mg/dL (70-99) Review of Systems Review of Systems General: denies weakness GI: denies N/V/D/C Assessment and Plan Assessmemt and Plan Problems Medical Problems: (1) Hyperglycemia Status: Acute (2) UTI (urinary tract infection) Status: Acute Hyperglycemia UTI Diabetes Hypertension Hyperlipidemia CHF Chronic renal insufficiency H/o skin cancers Plan: -Continue SSI, glucose 216 this am -Continue antibiotics, Urine cx + G- rods -Derm consulted for scalp lesions - Dr. Ruth -Recheck labs in am -PT/OT as appropriate -Subspecialty input appreciated -Discharge disposition pending SNU eval and family preference Problems: Comment Review of Relevant I have reviewed the following items zuly (where applicable) has been applied. Labs Laboratory Tests Test 01/07/17 10:54 01/07/17 11:00 01/07/17 11:56 01/07/17 13:31 Glucose (Fingerstick) 435 mg/dL (70-99) 357 mg/dL (70-99) White Blood Count 7.3 x10^3/uL (4.0-11.0) Red Blood Count 3.50 x10^6/uL (4.30-5.70) Hemoglobin 11.9 g/dL (13.0-17.5) Hematocrit 34.9 % (39.0-53.0) Mean Corpuscular Volume 100 fL (79-100) Mean Corpuscular Hemoglobin 34 pg (25-35) Mean Corpuscular Hemoglobin Concent 34 g/dL (31-37) Red Cell Distribution Width 16.2 % (11.5-14.5) Platelet Count 215 x10^3/uL (140-400) Neutrophils (%) (Auto) 71 % (31-73) Lymphocytes (%) (Auto) 20 % (24-48) Monocytes (%) (Auto) 6 % (0-9) Eosinophils (%) (Auto) 3 % (0-3) Basophils (%) (Auto) 1 % (0-3) Neutrophils # (Auto) 5.2 x10^3uL (1.8-7.7) Lymphocytes # (Auto) 1.4 x10^3/uL (1.0-4.8) Monocytes # (Auto) 0.4 x10^3/uL (0.0-1.1) Eosinophils # (Auto) 0.2 x10^3/uL (0.0-0.7) Basophils # (Auto) 0.1 x10^3/uL (0.0-0.2) Sodium Level 135 mmol/L (136-145) Potassium Level 3.5 mmol/L (3.5-5.1) Chloride Level 91 mmol/L (98-107) Carbon Dioxide Level 32 mmol/L (21-32) Anion Gap 12 (6-14) Blood Urea Nitrogen 30 mg/dL (8-26) Creatinine 1.5 mg/dL (0.7-1.3) Estimated GFR (Cockcroft-Gault) 44.9 BUN/Creatinine Ratio 20 (6-20) Glucose Level 440 mg/dL (70-99) Calcium Level 9.2 mg/dL (8.5-10.1) Total Bilirubin 0.5 mg/dL (0.2-1.0) Aspartate Amino Transf (AST/SGOT) 12 U/L (15-37) Alanine Aminotransferase (ALT/SGPT) 14 U/L (16-63) Alkaline Phosphatase 78 U/L (46-116) Troponin I Quantitative < 0.017 ng/mL (0.000-0.055) WH-Ttq-D-Type Natriuretic Peptide 190 pg/mL (0-449) Total Protein 7.3 g/dL (6.4-8.2) Albumin 3.1 g/dL (3.4-5.0) Albumin/Globulin Ratio 0.7 (1.0-1.7) Urine Collection Type Unknown Urine Color Yellow Urine Clarity Cloudy Urine pH 6.0 Urine Specific [place] 1.010 Urine Protein Negative mg/dL (NEG-TRACE) Urine Glucose (UA) 500 mg/dL (NEG) Urine Ketones (Stick) Negative mg/dL (NEG) Urine Blood Trace (NEG) Urine Nitrite Negative (NEG) Urine Bilirubin Negative (NEG) Urine Urobilinogen Dipstick 0.2 mg/dL (0.2 mg/dL) Urine Leukocyte Esterase Large (NEG) Urine RBC 0 /HPF (0-2) Urine WBC >40 /HPF (0-4) Urine Squamous Epithelial Cells Occ /LPF Urine Bacteria Few /HPF (0-FEW) Test 01/07/17 14:45 01/07/17 15:58 01/07/17 16:46 01/07/17 20:25 Nasal Screen MRSA (PCR) Negative (Negative) Glucose (Fingerstick) 342 mg/dL (70-99) 342 mg/dL (70-99) 293 mg/dL (70-99) Test 01/08/17 01:39 01/08/17 04:55 01/08/17 07:15 01/08/17 11:23 Glucose (Fingerstick) 195 mg/dL (70-99) 226 mg/dL (70-99) 166 mg/dL (70-99) White Blood Count 5.9 x10^3/uL (4.0-11.0) Red Blood Count 3.11 x10^6/uL (4.30-5.70) Hemoglobin 10.5 g/dL (13.0-17.5) Hematocrit 31.3 % (39.0-53.0) Mean Corpuscular Volume 101 fL (79-100) Mean Corpuscular Hemoglobin 34 pg (25-35) Mean Corpuscular Hemoglobin Concent 33 g/dL (31-37) Red Cell Distribution Width 16.1 % (11.5-14.5) Platelet Count 173 x10^3/uL (140-400) Neutrophils (%) (Auto) 66 % (31-73) Lymphocytes (%) (Auto) 24 % (24-48) Monocytes (%) (Auto) 6 % (0-9) Eosinophils (%) (Auto) 4 % (0-3) Basophils (%) (Auto) 1 % (0-3) Neutrophils # (Auto) 3.9 x10^3uL (1.8-7.7) Lymphocytes # (Auto) 1.4 x10^3/uL (1.0-4.8) Monocytes # (Auto) 0.3 x10^3/uL (0.0-1.1) Eosinophils # (Auto) 0.2 x10^3/uL (0.0-0.7) Basophils # (Auto) 0.1 x10^3/uL (0.0-0.2) Sodium Level 139 mmol/L (136-145) Potassium Level 3.0 mmol/L (3.5-5.1) Chloride Level 96 mmol/L (98-107) Carbon Dioxide Level 37 mmol/L (21-32) Anion Gap 6 (6-14) Blood Urea Nitrogen 22 mg/dL (8-26) Creatinine 0.9 mg/dL (0.7-1.3) Estimated GFR (Cockcroft-Gault) 81.0 Glucose Level 192 mg/dL (70-99) Calcium Level 8.6 mg/dL (8.5-10.1) Test 01/08/17 16:12 01/08/17 21:00 01/09/17 03:13 01/09/17 07:57 Glucose (Fingerstick) 112 mg/dL (70-99) 363 mg/dL (70-99) 224 mg/dL (70-99) White Blood Count 6.0 x10^3/uL (4.0-11.0) Red Blood Count 3.15 x10^6/uL (4.30-5.70) Hemoglobin 11.0 g/dL (13.0-17.5) Hematocrit 30.9 % (39.0-53.0) Mean Corpuscular Volume 98 fL (79-100) Mean Corpuscular Hemoglobin 35 pg (25-35) Mean Corpuscular Hemoglobin Concent 36 g/dL (31-37) Red Cell Distribution Width 16.4 % (11.5-14.5) Platelet Count 178 x10^3/uL (140-400) Neutrophils (%) (Auto) 67 % (31-73) Lymphocytes (%) (Auto) 22 % (24-48) Monocytes (%) (Auto) 6 % (0-9) Eosinophils (%) (Auto) 4 % (0-3) Basophils (%) (Auto) 1 % (0-3) Neutrophils # (Auto) 4.0 x10^3uL (1.8-7.7) Lymphocytes # (Auto) 1.3 x10^3/uL (1.0-4.8) Monocytes # (Auto) 0.4 x10^3/uL (0.0-1.1) Eosinophils # (Auto) 0.2 x10^3/uL (0.0-0.7) Basophils # (Auto) 0.0 x10^3/uL (0.0-0.2) Sodium Level 137 mmol/L (136-145) Potassium Level 3.2 mmol/L (3.5-5.1) Chloride Level 94 mmol/L (98-107) Carbon Dioxide Level 35 mmol/L (21-32) Anion Gap 8 (6-14) Blood Urea Nitrogen 25 mg/dL (8-26) Creatinine 1.1 mg/dL (0.7-1.3) Estimated GFR (Cockcroft-Gault) 64.2 Glucose Level 211 mg/dL (70-99) Calcium Level 8.7 mg/dL (8.5-10.1) Laboratory Tests Test 01/08/17 11:23 01/08/17 16:12 01/08/17 21:00 01/09/17 03:13 Glucose (Fingerstick) 166 mg/dL (70-99) 112 mg/dL (70-99) 363 mg/dL (70-99) White Blood Count 6.0 x10^3/uL (4.0-11.0) Red Blood Count 3.15 x10^6/uL (4.30-5.70) Hemoglobin 11.0 g/dL (13.0-17.5) Hematocrit 30.9 % (39.0-53.0) Mean Corpuscular Volume 98 fL (79-100) Mean Corpuscular Hemoglobin 35 pg (25-35) Mean Corpuscular Hemoglobin Concent 36 g/dL (31-37) Red Cell Distribution Width 16.4 % (11.5-14.5) Platelet Count 178 x10^3/uL (140-400) Neutrophils (%) (Auto) 67 % (31-73) Lymphocytes (%) (Auto) 22 % (24-48) Monocytes (%) (Auto) 6 % (0-9) Eosinophils (%) (Auto) 4 % (0-3) Basophils (%) (Auto) 1 % (0-3) Neutrophils # (Auto) 4.0 x10^3uL (1.8-7.7) Lymphocytes # (Auto) 1.3 x10^3/uL (1.0-4.8) Monocytes # (Auto) 0.4 x10^3/uL (0.0-1.1) Eosinophils # (Auto) 0.2 x10^3/uL (0.0-0.7) Basophils # (Auto) 0.0 x10^3/uL (0.0-0.2) Sodium Level 137 mmol/L (136-145) Potassium Level 3.2 mmol/L (3.5-5.1) Chloride Level 94 mmol/L (98-107) Carbon Dioxide Level 35 mmol/L (21-32) Anion Gap 8 (6-14) Blood Urea Nitrogen 25 mg/dL (8-26) Creatinine 1.1 mg/dL (0.7-1.3) Estimated GFR (Cockcroft-Gault) 64.2 Glucose Level 211 mg/dL (70-99) Calcium Level 8.7 mg/dL (8.5-10.1) Test 01/09/17 07:57 Glucose (Fingerstick) 224 mg/dL (70-99) Microbiology 01/07/17 Urine Culture - Preliminary, Resulted 01/07/17 Urine Culture Result 1 (FELICE) - Preliminary, Resulted Medications Current Medications Sodium Chloride 500 ml @ 500 mls/hr 1X ONCE IV Last administered on 12:06; Start 01/07/17 at 12:00; Stop 01/07/17 at 12:59; Status DC Insulin Human Regular (NovoLIN R VIAL) 10 unit 1X ONCE SQ Last administered on 01/07/17 12:37; Start 01/07/17 at 12:15; Stop 01/07/17 at 12:16; Status DC Levofloxacin/ Dextrose (Levaquin Per Pharmacy) 1 each DAILY MC ; Start 01/07/17 at 13:15; Stop 01/12/17 at 10:00 Levofloxacin/ Dextrose 50 ml @ 100 mls/hr Q24H IV Last administered on 14:04; Start 01/07/17 at 14:00; Stop 01/08/17 at 16:00; Status DC Insulin Aspart (NovoLOG) 15 units 1X ONCE SQ Last administered on 01/07/17 16 :06; Start 01/07/17 at 16:00; Stop 01/07/17 at 16:01; Status DC Insulin Aspart (NovoLOG) 0-7 UNITS TIDWMEALS SQ Last administered on 01/07/17 17:19; Start 01/07/17 at 17:00 Dextrose (Dextrose 50%-Water Syringe) 12.5 gm PRN Q15MIN PRN IV SEE COMMENTS; Start 01/07/17 at 16:00 Acetaminophen (Tylenol) 650 mg PRN Q6HRS PRN PO PAIN Last administered on 09:04; Start 01/07/17 at 21:00 Alprazolam (Xanax) 0.5 mg PRN BID PRN PO ANXIETY / AGITATION Last administered on 01/08/17 09:04; Start 01/07/17 at 21:00 Atorvastatin Calcium (Lipitor) 20 mg HS PO Last administered on 01/08/17 22:15 ; Start 01/07/17 at 21:30 Azathioprine (Imuran) 100 mg BID PO Last administered on 01/08/17 22:15; Start 01/07/17 at 21:30 Bisacodyl (Dulcolax Supp) 10 mg PRN DAILY PRN RC CONSTIPATION; Start 01/07/17 at 21:00 Vitamin D (Vitamin D3) 1,000 unit DAILY PO Last administered on 01/08/17 08:28 ; Start 01/08/17 at 09:00 Finasteride (Proscar) 5 mg DAILY PO Last administered on 01/08/17 08:30; Start 01/08/17 at 09:00 Furosemide (Lasix) 20 mg DAILY16 PO Last administered on 01/08/17 15:49; Start 01/08/17 at 16:00 Furosemide (Lasix) 40 mg DAILY PO Last administered on 01/08/17 08:30; Start 01/08/17 at 09:00 Insulin Aspart (NovoLOG) 35 units TIDWMEALS SQ Last administered on 01/08/17 11:59; Start 01/08/17 at 08:00 Insulin Detemir (Levemir) 65 units HS SQ Last administered on 01/08/17 22:20; Start 01/07/17 at 21:30 Losartan Potassium (Cozaar) 25 mg DAILY PO Last administered on 01/08/17 08:27 ; Start 01/08/17 at 09:00 Magnesium Hydroxide (Milk Of Magnesia) 2,400 mg PRN DAILY PRN PO CONSTIPATION; Start 01/07/17 at 21:00 Metformin HCl (Glucophage) 1,000 mg BIDWMEALS PO Last administered on 17:03; Start 01/08/17 at 08:00 Metolazone (Zaroxolyn) 2.5 mg DAILY PO Last administered on 01/08/17 08:30; Start 01/08/17 at 09:00 Mirtazapine (Remeron) 15 mg QHS PO Last administered on 01/08/17 22:15; Start 01/07/17 at 21:30 Nystatin (Nystop) 1 bridgette BID TP Last administered on 01/08/17 22:14; Start at 21:30 Nystatin/ Triamcinolone Acetonide (Mycolog Ii) 1 bridgette BID TP Last administered on 01/08/17 08:32; Start 01/07/17 at 21:30 Potassium Chloride (Klor-Con) 20 meq DAILYWBKFT PO Last administered on 08:32; Start 01/08/17 at 08:00 Tamsulosin HCl (Flomax) 0.4 mg HS PO Last administered on 01/08/17 22:15; Start 01/07/17 at 21:30 Verapamil HCl (Calan Sr) 360 mg DAILY PO Last administered on 01/08/17 08:27; Start 01/08/17 at 09:00 Albuterol Sulfate (Ventolin Neb Soln) 2.5 mg PRN Q4HRS PRN NEB WHEEZING; Start 01/07/17 at 21:15 Loperamide HCl (Imodium) 2 mg PRN Q15MIN PRN PO DIARRHEA; Start 01/07/17 at 21: 15 Meloxicam (Mobic) 15 mg DAILY PO Last administered on 01/08/17 08:29; Start at 09:00 Non-Formulary Medication 3.5 gm BID TP ; Start 01/07/17 at 21:00; Status UNV Insulin Aspart (NovoLOG) 10 units 1X ONCE SQ Last administered on 01/07/17 21 :11; Start 01/07/17 at 21:15; Stop 01/07/17 at 21:16; Status DC Potassium Chloride (Klor-Con) 40 meq 1X ONCE PO Last administered on 08:28; Start 01/08/17 at 07:45; Stop 01/08/17 at 07:46; Status DC Levofloxacin (Levaquin) 250 mg Q24H PO ; Start 01/09/17 at 14:00 Potassium Chloride (Klor-Con) 40 meq 1X ONCE PO Last administered on 06:14; Start 01/09/17 at 05:45; Stop 01/09/17 at 05:46; Status DC Active Scripts Active Verapamil Er (Verapamil Hcl) 180 Mg Tablet.er 360 Mg PO DAILY Cozaar (Losartan Potassium) 25 Mg Tablet 25 Mg PO DAILY Klor-Con M20 (Potassium Chloride) 20 Meq Tab.er.prt 20 Meq PO DAILYWBKFT Furosemide 40 Mg Tablet 40 Mg PO DAILY Reported Nystatin-Triamcinolone Cream (Nystatin/Triamcin) 15 Gm Cream..g. 1 [place] TP BID Calmoseptine Ointment (Menthol/Zinc Oxide) 3.5 Gm Oint.pack 3.5 Gm TP BID Tylenol (Acetaminophen) 325 Mg Tablet 650 Mg PO Q6HRS PRN Furosemide 20 Mg Tablet 1 Tab PO DAILY16 Metolazone 2.5 Mg Tablet 2.5 Mg PO DAILY Novolog Flexpen (Insulin Aspart) 100 Unit/1 Ml Insuln.pen 35 Unit SQ TIDWMEALS Alprazolam 0.5 Mg Tablet 0.5 Mg PO BID PRN Vitamin D3 (Cholecalciferol (Vitamin D3)) 1,000 Unit Tablet 1,000 Unit PO DAILY Proventil Hfa Inhaler (Albuterol Sulfate) 6.7 Gm Hfa.aer.ad 2 Puff IH PRN Q4HRS PRN Imodium Multi-Symptom Rel Cplt (Loperamide Hcl/Simethicone) 1 Each Tablet 1 Each PO PRN BID PRN Metformin Hcl 1,000 Mg Tablet 1 Tab PO BID Azathioprine 50 Mg Tablet 100 Mg PO BID Remeron (Mirtazapine) 15 Mg Tablet 1 Tab PO QHS Meloxicam 15 Mg Tablet 1 Tab PO DAILY Dulcolax (Bisacodyl) 10 Mg Supp.rect 10 Mg RC PRN DAILY PRN Milk Of Magnesia (Magnesium Hydroxide) 400 Mg/5 Ml Oral.susp 30 Ml PO PRN DAILY PRN Nystatin 15 Gm Powder 1 [place] TP BID Levemir Flextouch (Insulin Detemir) 100 Unit/1 Ml Insuln.pen 65 Unit SQ HS Tamsulosin Hcl 0.4 Mg Cap.er.24h 0.4 Mg PO HS Atorvastatin Calcium 20 Mg Tablet 20 Mg PO HS Finasteride 5 Mg Tablet 1 Tab PO DAILY Vitals/I & O Vital Sign - Last 24 Hours 01/08/17 01/08/17 01/08/17 01/08/17 10:42 14:56 19:00 20:00 Temp 96.4 97.7 97.5 96.4 97.7 97.5 Pulse 53 89 75 Resp 18 18 17 B/P (MAP) 137/59 (85) 104/57 (73) 110/54 (72) Pulse Ox 93 94 94 O2 Delivery Room Air Room Air Room Air Room Air 01/08/17 01/09/17 01/09/17 23:04 03:38 07:00 Temp 97.5 98.4 98.0 97.5 98.4 98.0 Pulse 69 67 69 Resp 17 20 18 B/P (MAP) 117/65 (82) 114/64 (81) 140/67 (91) Pulse Ox 92 94 98 O2 Delivery Room Air Room Air Room Air Intake and Output 01/08/17 01/08/17 01/09/17 15:00 23:00 07:00 Intake Total 540 ml 230 ml 0 ml Balance 540 ml 230 ml 0 ml CASTLE,NIAL K III DO January 09, 2017 08:55
[2017-01-09] MEDS: NYSTATIN/TRIAMCIN TOPICAL CREAM 15GM TUBE. TP SCH ×2 (09:00→22:21)
[2017-01-09] MEDS: levOFLOXacin PER PHARMACY. MC SCH (09:00)
[2017-01-09] MEDS: FUROSEMIDE 40 MG TABLET. PO SCH (09:00)
[2017-01-09 11:00] VITALS: BP 137/64
[2017-01-09] MEDS: POTASSIUM CHLORIDE 20 MEQ TABLET.ER. PO SCH (14:41)
[2017-01-09] MEDS: VERAPAMIL SR 180 MG TABLET.ER. PO SCH (14:42)
[2017-01-09] MEDS: MELOXICAM 7.5 MG TABLET PO SCH (14:43)
[2017-01-09] MEDS: CHOLECALCIFEROL (VITAMIN D3) 1,000 UNIT TABLET PO SCH (14:44)
[2017-01-09] MEDS: azaTHIOprine 50 MG TABLET PO SCH ×2 (14:44→22:20)
[2017-01-09] MEDS: LOSARTAN POTASSIUM 25 MG TABLET. PO SCH (14:44)
[2017-01-09] MEDS: metOLazone 2.5 MG TABLET PO SCH (14:45)
[2017-01-09] MEDS: FINASTERIDE 5 MG TABLET. PO SCH (14:45)
[2017-01-09] MEDS: ALPRAZolam 0.5 MG TABLET PO PRN (14:49)
[2017-01-09] MEDS: FUROSEMIDE 20 MG TABLET PO SCH (14:50)
[2017-01-09 15:00] VITALS: BP 113/51
[2017-01-09] MEDS: NYSTATIN TOPICAL POWDER 15GM BOTTLE. TP SCH ×2 (15:18→22:20)
[2017-01-09 19:00] VITALS: BP 106/57
[2017-01-09] MEDS: MIRTAZAPINE 15 MG TABLET PO SCH (22:20)
[2017-01-09] MEDS: ATORVASTATIN CALCIUM 20 MG TABLET PO SCH (22:20)
[2017-01-09] MEDS: TAMSULOSIN 0.4 MG CAP.ER.24H. PO SCH (22:20)
[2017-01-09] MEDS: INSULIN DETEMIR 300 UNITS/3 ML INSULN.PEN. SQ SCH (22:24)
[2017-01-09 23:00] VITALS: BP 119/66
[2017-01-10 00:47] VITALS: BP 119/66
[2017-01-10 06:10] LABS: BASO % 1 % (0-3); EOS % 4 % (0-3); HEMATOCRIT 30.6 % (39.0-53.0); HEMOGLOBIN 10.8 g/dL (13.0-17.5); LYMPH # 1.3 x10^3/uL (1.0-4.8); LYMPH % 25 % (24-48); MEAN CORPUSCULAR HEMOGLOBIN 35 pg (25-35); MEAN CORPUSCULAR HGB CONC 36 g/dL (31-37); MEAN CORPUSCULAR VOLUME 98 fL (79-100); MONO % 6 % (0-9); NEUT % 64 % (31-73); PLATELET COUNT 164 x10^3/uL (140-400); RED BLOOD COUNT 3.12 x10^6/uL (4.30-5.70); RED CELL DISTRIBUTION WIDTH 16.3 % (11.5-14.5); WHITE BLOOD COUNT 5.2 x10^3/uL (4.0-11.0)
[2017-01-10 06:27] LABS: CALCIUM 8.8 mg/dL (8.5-10.1); GFR 71.7; POTASSIUM 3.7 mmol/L (3.5-5.1)
[2017-01-10 07:25] VITALS: BP 122/64
[2017-01-10] MEDS: VERAPAMIL SR 180 MG TABLET.ER. PO SCH (09:12)
[2017-01-10] MEDS: FUROSEMIDE 40 MG TABLET. PO SCH (09:12)
[2017-01-10] MEDS: FINASTERIDE 5 MG TABLET. PO SCH (09:13)
[2017-01-10] MEDS: CHOLECALCIFEROL (VITAMIN D3) 1,000 UNIT TABLET PO SCH (09:13)
[2017-01-10] MEDS: azaTHIOprine 50 MG TABLET PO SCH (09:13)
[2017-01-10] MEDS: metOLazone 2.5 MG TABLET PO SCH (09:13)
[2017-01-10] MEDS: LOSARTAN POTASSIUM 25 MG TABLET. PO SCH (09:13)
[2017-01-10] MEDS: MELOXICAM 7.5 MG TABLET PO SCH (09:13)
[2017-01-10] MEDS: NYSTATIN/TRIAMCIN TOPICAL CREAM 15GM TUBE. TP SCH (09:14)
[2017-01-10] MEDS: POTASSIUM CHLORIDE 20 MEQ TABLET.ER. PO SCH (09:14)
[2017-01-10] MEDS: NYSTATIN TOPICAL POWDER 15GM BOTTLE. TP SCH (09:14)
[2017-01-10] MEDS: INSULIN ASPART 300 UNITS/3 ML INSULN.PEN SQ SCH ×2 (09:23→09:24)
[2017-01-10] MEDS: ALPRAZolam 0.5 MG TABLET PO PRN (10:25)
[2017-01-10 10:30] VITALS: BP 140/68
--- NOTE | 2017-01-10 11:54 | PDOC ---
PROGRESS NOTES Chief Complaint Chief Complaint Hyperglycemia UTI, GNRpen sensitive Diabetes,controlled Hypertension,controlled Hyperlipidemia CHF, stable Chronic renal insufficiency H/o skin cancers History of Present Illness History of Present Illness Hyperglycemia resolved GNR on urine cx - sensitive to PCN PCN listed as allergy - verified with pt, non anaphylactic and he was 19 yo SW looking at LT[facility] Pt is GL rsident PLAN: Start PO amox Ready for dc once place has been found Dw Rn and pt Vitals Vitals Vital Signs Date Time Temp Pulse Resp B/P (MAP) Pulse Ox O2 Delivery O2 Flow Rate FiO2 01/10/17 10:30 97.5 83 18 140/68 (92) 94 Room Air 97.5 Physical Exam General: Alert, No acute distress Heart: Regular rate, Normal S1, Normal S2 Lungs: Clear, Other (no wheezing) Abdomen: Normal bowel sounds, Soft Extremities: No clubbing, No cyanosis Skin: No rashes, No breakdown, Other (several scaly and erythematous lesions on scalp) Labs LABS Laboratory Tests Test 01/09/17 11:55 01/09/17 14:24 01/09/17 15:50 01/09/17 21:16 Glucose (Fingerstick) 297 mg/dL (70-99) 290 mg/dL (70-99) 296 mg/dL (70-99) 177 mg/dL (70-99) Test 01/10/17 04:45 01/10/17 07:26 01/10/17 11:23 White Blood Count 5.2 x10^3/uL (4.0-11.0) Red Blood Count 3.12 x10^6/uL (4.30-5.70) Hemoglobin 10.8 g/dL (13.0-17.5) Hematocrit 30.6 % (39.0-53.0) Mean Corpuscular Volume 98 fL (79-100) Mean Corpuscular Hemoglobin 35 pg (25-35) Mean Corpuscular Hemoglobin Concent 36 g/dL (31-37) Red Cell Distribution Width 16.3 % (11.5-14.5) Platelet Count 164 x10^3/uL (140-400) Neutrophils (%) (Auto) 64 % (31-73) Lymphocytes (%) (Auto) 25 % (24-48) Monocytes (%) (Auto) 6 % (0-9) Eosinophils (%) (Auto) 4 % (0-3) Basophils (%) (Auto) 1 % (0-3) Neutrophils # (Auto) 3.3 x10^3uL (1.8-7.7) Lymphocytes # (Auto) 1.3 x10^3/uL (1.0-4.8) Monocytes # (Auto) 0.3 x10^3/uL (0.0-1.1) Eosinophils # (Auto) 0.2 x10^3/uL (0.0-0.7) Basophils # (Auto) 0.0 x10^3/uL (0.0-0.2) Sodium Level 135 mmol/L (136-145) Potassium Level 3.7 mmol/L (3.5-5.1) Chloride Level 94 mmol/L (98-107) Carbon Dioxide Level 34 mmol/L (21-32) Anion Gap 7 (6-14) Blood Urea Nitrogen 27 mg/dL (8-26) Creatinine 1.0 mg/dL (0.7-1.3) Estimated GFR (Cockcroft-Gault) 71.7 Glucose Level 187 mg/dL (70-99) Calcium Level 8.8 mg/dL (8.5-10.1) Glucose (Fingerstick) 183 mg/dL (70-99) 173 mg/dL (70-99) Review of Systems Review of Systems no cp, soa, abd pain Assessment and Plan Assessmemt and Plan Problems Medical Problems: (1) Hyperglycemia Status: Acute (2) UTI (urinary tract infection) Status: Acute Problems: Comment Review of Relevant I have reviewed the following items zuly (where applicable) has been applied. Labs Laboratory Tests Test 01/08/17 16:12 01/08/17 21:00 01/09/17 03:13 01/09/17 07:57 Glucose (Fingerstick) 112 mg/dL (70-99) 363 mg/dL (70-99) 224 mg/dL (70-99) White Blood Count 6.0 x10^3/uL (4.0-11.0) Red Blood Count 3.15 x10^6/uL (4.30-5.70) Hemoglobin 11.0 g/dL (13.0-17.5) Hematocrit 30.9 % (39.0-53.0) Mean Corpuscular Volume 98 fL (79-100) Mean Corpuscular Hemoglobin 35 pg (25-35) Mean Corpuscular Hemoglobin Concent 36 g/dL (31-37) Red Cell Distribution Width 16.4 % (11.5-14.5) Platelet Count 178 x10^3/uL (140-400) Neutrophils (%) (Auto) 67 % (31-73) Lymphocytes (%) (Auto) 22 % (24-48) Monocytes (%) (Auto) 6 % (0-9) Eosinophils (%) (Auto) 4 % (0-3) Basophils (%) (Auto) 1 % (0-3) Neutrophils # (Auto) 4.0 x10^3uL (1.8-7.7) Lymphocytes # (Auto) 1.3 x10^3/uL (1.0-4.8) Monocytes # (Auto) 0.4 x10^3/uL (0.0-1.1) Eosinophils # (Auto) 0.2 x10^3/uL (0.0-0.7) Basophils # (Auto) 0.0 x10^3/uL (0.0-0.2) Sodium Level 137 mmol/L (136-145) Potassium Level 3.2 mmol/L (3.5-5.1) Chloride Level 94 mmol/L (98-107) Carbon Dioxide Level 35 mmol/L (21-32) Anion Gap 8 (6-14) Blood Urea Nitrogen 25 mg/dL (8-26) Creatinine 1.1 mg/dL (0.7-1.3) Estimated GFR (Cockcroft-Gault) 64.2 Glucose Level 211 mg/dL (70-99) Calcium Level 8.7 mg/dL (8.5-10.1) Test 01/09/17 11:55 01/09/17 14:24 01/09/17 15:50 01/09/17 21:16 Glucose (Fingerstick) 297 mg/dL (70-99) 290 mg/dL (70-99) 296 mg/dL (70-99) 177 mg/dL (70-99) Test 01/10/17 04:45 01/10/17 07:26 01/10/17 11:23 White Blood Count 5.2 x10^3/uL (4.0-11.0) Red Blood Count 3.12 x10^6/uL (4.30-5.70) Hemoglobin 10.8 g/dL (13.0-17.5) Hematocrit 30.6 % (39.0-53.0) Mean Corpuscular Volume 98 fL (79-100) Mean Corpuscular Hemoglobin 35 pg (25-35) Mean Corpuscular Hemoglobin Concent 36 g/dL (31-37) Red Cell Distribution Width 16.3 % (11.5-14.5) Platelet Count 164 x10^3/uL (140-400) Neutrophils (%) (Auto) 64 % (31-73) Lymphocytes (%) (Auto) 25 % (24-48) Monocytes (%) (Auto) 6 % (0-9) Eosinophils (%) (Auto) 4 % (0-3) Basophils (%) (Auto) 1 % (0-3) Neutrophils # (Auto) 3.3 x10^3uL (1.8-7.7) Lymphocytes # (Auto) 1.3 x10^3/uL (1.0-4.8) Monocytes # (Auto) 0.3 x10^3/uL (0.0-1.1) Eosinophils # (Auto) 0.2 x10^3/uL (0.0-0.7) Basophils # (Auto) 0.0 x10^3/uL (0.0-0.2) Sodium Level 135 mmol/L (136-145) Potassium Level 3.7 mmol/L (3.5-5.1) Chloride Level 94 mmol/L (98-107) Carbon Dioxide Level 34 mmol/L (21-32) Anion Gap 7 (6-14) Blood Urea Nitrogen 27 mg/dL (8-26) Creatinine 1.0 mg/dL (0.7-1.3) Estimated GFR (Cockcroft-Gault) 71.7 Glucose Level 187 mg/dL (70-99) Calcium Level 8.8 mg/dL (8.5-10.1) Glucose (Fingerstick) 183 mg/dL (70-99) 173 mg/dL (70-99) Laboratory Tests Test 01/09/17 11:55 01/09/17 14:24 01/09/17 15:50 01/09/17 21:16 Glucose (Fingerstick) 297 mg/dL (70-99) 290 mg/dL (70-99) 296 mg/dL (70-99) 177 mg/dL (70-99) Test 01/10/17 04:45 01/10/17 07:26 01/10/17 11:23 White Blood Count 5.2 x10^3/uL (4.0-11.0) Red Blood Count 3.12 x10^6/uL (4.30-5.70) Hemoglobin 10.8 g/dL (13.0-17.5) Hematocrit 30.6 % (39.0-53.0) Mean Corpuscular Volume 98 fL (79-100) Mean Corpuscular Hemoglobin 35 pg (25-35) Mean Corpuscular Hemoglobin Concent 36 g/dL (31-37) Red Cell Distribution Width 16.3 % (11.5-14.5) Platelet Count 164 x10^3/uL (140-400) Neutrophils (%) (Auto) 64 % (31-73) Lymphocytes (%) (Auto) 25 % (24-48) Monocytes (%) (Auto) 6 % (0-9) Eosinophils (%) (Auto) 4 % (0-3) Basophils (%) (Auto) 1 % (0-3) Neutrophils # (Auto) 3.3 x10^3uL (1.8-7.7) Lymphocytes # (Auto) 1.3 x10^3/uL (1.0-4.8) Monocytes # (Auto) 0.3 x10^3/uL (0.0-1.1) Eosinophils # (Auto) 0.2 x10^3/uL (0.0-0.7) Basophils # (Auto) 0.0 x10^3/uL (0.0-0.2) Sodium Level 135 mmol/L (136-145) Potassium Level 3.7 mmol/L (3.5-5.1) Chloride Level 94 mmol/L (98-107) Carbon Dioxide Level 34 mmol/L (21-32) Anion Gap 7 (6-14) Blood Urea Nitrogen 27 mg/dL (8-26) Creatinine 1.0 mg/dL (0.7-1.3) Estimated GFR (Cockcroft-Gault) 71.7 Glucose Level 187 mg/dL (70-99) Calcium Level 8.8 mg/dL (8.5-10.1) Glucose (Fingerstick) 183 mg/dL (70-99) 173 mg/dL (70-99) Microbiology 01/07/17 Urine Culture - Final, Complete 01/07/17 Urine Culture Result 1 (FELICE) - Final, Complete 01/07/17 Antimicrobic Susceptibility - Final, Complete Medications Current Medications Sodium Chloride 500 ml @ 500 mls/hr 1X ONCE IV Last administered on 12:06; Start 01/07/17 at 12:00; Stop 01/07/17 at 12:59; Status DC Insulin Human Regular (NovoLIN R VIAL) 10 unit 1X ONCE SQ Last administered on 01/07/17 12:37; Start 01/07/17 at 12:15; Stop 01/07/17 at 12:16; Status DC Levofloxacin/ Dextrose (Levaquin Per Pharmacy) 1 each DAILY MC Last administered on 01/09/17 09:00; Start 01/07/17 at 13:15; Stop 01/12/17 at 10:00 Levofloxacin/ Dextrose 50 ml @ 100 mls/hr Q24H IV Last administered on 14:04; Start 01/07/17 at 14:00; Stop 01/08/17 at 16:00; Status DC Insulin Aspart (NovoLOG) 15 units 1X ONCE SQ Last administered on 01/07/17 16 :06; Start 01/07/17 at 16:00; Stop 01/07/17 at 16:01; Status DC Insulin Aspart (NovoLOG) 0-7 UNITS TIDWMEALS SQ Last administered on 01/10/17 09:23; Start 01/07/17 at 17:00 Dextrose (Dextrose 50%-Water Syringe) 12.5 gm PRN Q15MIN PRN IV SEE COMMENTS; Start 01/07/17 at 16:00 Acetaminophen (Tylenol) 650 mg PRN Q6HRS PRN PO PAIN Last administered on 09:04; Start 01/07/17 at 21:00 Alprazolam (Xanax) 0.5 mg PRN BID PRN PO ANXIETY / AGITATION Last administered on 01/10/17 10:25; Start 01/07/17 at 21:00 Atorvastatin Calcium (Lipitor) 20 mg HS PO Last administered on 01/09/17 22:20 ; Start 01/07/17 at 21:30 Azathioprine (Imuran) 100 mg BID PO Last administered on 01/10/17 09:13; Start 01/07/17 at 21:30 Bisacodyl (Dulcolax Supp) 10 mg PRN DAILY PRN RC CONSTIPATION; Start 01/07/17 at 21:00 Vitamin D (Vitamin D3) 1,000 unit DAILY PO Last administered on 01/10/17 09:13 ; Start 01/08/17 at 09:00 Finasteride (Proscar) 5 mg DAILY PO Last administered on 01/10/17 09:13; Start 01/08/17 at 09:00 Furosemide (Lasix) 20 mg DAILY16 PO Last administered on 01/09/17 14:50; Start 01/08/17 at 16:00 Furosemide (Lasix) 40 mg DAILY PO Last administered on 01/10/17 09:12; Start 01/08/17 at 09:00 Insulin Aspart (NovoLOG) 35 units TIDWMEALS SQ Last administered on 01/10/17 09:24; Start 01/08/17 at 08:00 Insulin Detemir (Levemir) 65 units HS SQ Last administered on 01/09/17 22:24; Start 01/07/17 at 21:30 Losartan Potassium (Cozaar) 25 mg DAILY PO Last administered on 01/10/17 09:13 ; Start 01/08/17 at 09:00 Magnesium Hydroxide (Milk Of Magnesia) 2,400 mg PRN DAILY PRN PO CONSTIPATION; Start 01/07/17 at 21:00 Metformin HCl (Glucophage) 1,000 mg BIDWMEALS PO Last administered on 09:12; Start 01/08/17 at 08:00 Metolazone (Zaroxolyn) 2.5 mg DAILY PO Last administered on 01/10/17 09:13; Start 01/08/17 at 09:00 Mirtazapine (Remeron) 15 mg QHS PO Last administered on 01/09/17 22:20; Start 01/07/17 at 21:30 Nystatin (Nystop) 1 bridgette BID TP Last administered on 01/10/17 09:14; Start at 21:30 Nystatin/ Triamcinolone Acetonide (Mycolog Ii) 1 bridgette BID TP Last administered on 01/10/17 09:14; Start 01/07/17 at 21:30 Potassium Chloride (Klor-Con) 20 meq DAILYWBKFT PO Last administered on 09:14; Start 01/08/17 at 08:00 Tamsulosin HCl (Flomax) 0.4 mg HS PO Last administered on 01/09/17 22:20; Start 01/07/17 at 21:30 Verapamil HCl (Calan Sr) 360 mg DAILY PO Last administered on 01/10/17 09:12; Start 01/08/17 at 09:00 Albuterol Sulfate (Ventolin Neb Soln) 2.5 mg PRN Q4HRS PRN NEB WHEEZING; Start 01/07/17 at 21:15 Loperamide HCl (Imodium) 2 mg PRN Q15MIN PRN PO DIARRHEA; Start 01/07/17 at 21: 15 Meloxicam (Mobic) 15 mg DAILY PO Last administered on 01/10/17 09:13; Start at 09:00 Non-Formulary Medication 3.5 gm BID TP ; Start 01/07/17 at 21:00; Status UNV Insulin Aspart (NovoLOG) 10 units 1X ONCE SQ Last administered on 01/07/17 21 :11; Start 01/07/17 at 21:15; Stop 01/07/17 at 21:16; Status DC Potassium Chloride (Klor-Con) 40 meq 1X ONCE PO Last administered on 08:28; Start 01/08/17 at 07:45; Stop 01/08/17 at 07:46; Status DC Levofloxacin (Levaquin) 250 mg Q24H PO Last administered on 01/10/17 09:12; Start 01/09/17 at 14:00 Potassium Chloride (Klor-Con) 40 meq 1X ONCE PO Last administered on 06:14; Start 01/09/17 at 05:45; Stop 01/09/17 at 05:46; Status DC Amoxicillin (Amoxil) 500 mg [id number] PO ; Start 01/10/17 at 12:00; Status UNV Active Scripts Active Verapamil Er (Verapamil Hcl) 180 Mg Tablet.er 360 Mg PO DAILY Cozaar (Losartan Potassium) 25 Mg Tablet 25 Mg PO DAILY Klor-Con M20 (Potassium Chloride) 20 Meq Tab.er.prt 20 Meq PO DAILYWBKFT Furosemide 40 Mg Tablet 40 Mg PO DAILY Reported Nystatin-Triamcinolone Cream (Nystatin/Triamcin) 15 Gm Cream..g. 1 Bridgette TP BID Calmoseptine Ointment (Menthol/Zinc Oxide) 3.5 Gm Oint.pack 3.5 Gm TP BID Tylenol (Acetaminophen) 325 Mg Tablet 650 Mg PO Q6HRS PRN Furosemide 20 Mg Tablet 1 Tab PO DAILY16 Metolazone 2.5 Mg Tablet 2.5 Mg PO DAILY Novolog Flexpen (Insulin Aspart) 100 Unit/1 Ml Insuln.pen 35 Unit SQ TIDWMEALS Alprazolam 0.5 Mg Tablet 0.5 Mg PO BID PRN Vitamin D3 (Cholecalciferol (Vitamin D3)) 1,000 Unit Tablet 1,000 Unit PO DAILY Proventil Hfa Inhaler (Albuterol Sulfate) 6.7 Gm Hfa.aer.ad 2 Puff IH PRN Q4HRS PRN Imodium Multi-Symptom Rel Cplt (Loperamide Hcl/Simethicone) 1 Each Tablet 1 Each PO PRN BID PRN Metformin Hcl 1,000 Mg Tablet 1 Tab PO BID Azathioprine 50 Mg Tablet 100 Mg PO BID Remeron (Mirtazapine) 15 Mg Tablet 1 Tab PO QHS Meloxicam 15 Mg Tablet 1 Tab PO DAILY Dulcolax (Bisacodyl) 10 Mg Supp.rect 10 Mg RC PRN DAILY PRN Milk Of Magnesia (Magnesium Hydroxide) 400 Mg/5 Ml Oral.susp 30 Ml PO PRN DAILY PRN Nystatin 15 Gm Powder 1 Bridgette TP BID Levemir Flextouch (Insulin Detemir) 100 Unit/1 Ml Insuln.pen 65 Unit SQ HS Tamsulosin Hcl 0.4 Mg Cap.er.24h 0.4 Mg PO HS Atorvastatin Calcium 20 Mg Tablet 20 Mg PO HS Finasteride 5 Mg Tablet 1 Tab PO DAILY Vitals/I & O Vital Sign - Last 24 Hours 01/09/17 01/09/17 01/09/17 01/09/17 14:42 14:44 15:00 19:00 Temp 97.6 98.1 97.6 98.1 Pulse 78 78 85 76 Resp 16 17 B/P (MAP) 137/64 137/64 113/51 (71) 106/57 (73) Pulse Ox 91 94 O2 Delivery Room Air Room Air 01/09/17 01/09/17 01/10/17 01/10/17 20:00 23:00 00:47 07:25 Temp 98.7 98.7 97.7 98.7 98.7 97.7 Pulse 78 78 78 Resp 17 17 18 B/P (MAP) 119/66 (83) 119/66 (83) 122/64 (83) Pulse Ox 94 94 92 O2 Delivery Room Air Room Air Room Air Room Air 01/10/17 01/10/17 01/10/17 09:12 09:13 10:30 Temp 97.5 97.5 Pulse 78 78 83 Resp 18 B/P (MAP) 122/64 122/64 140/68 (92) Pulse Ox 94 O2 Delivery Room Air Intake and Output 01/09/17 01/09/17 01/10/17 15:00 23:00 07:00 Intake Total 450 ml 800 ml 175 ml Balance 450 ml 800 ml 175 ml SHERLEY DOMINGUEZ MD January 10, 2017 11:54
[2017-01-10] MEDS ORDERED: AMOXICILLIN 250 MG CAPSULE. PO SCH (12:00)
--- NOTE | 2017-01-10 12:10 | PDOC3 ---
Discharge Summary Visit Information Date of Admission: January 07, 2017 Date of Discharge: January 10, 2017 Admitting Diagnosis Comment: Hyperglycemia UTI, GNR pen sensitive Diabetes,controlled Hypertension,controlled Hyperlipidemia CHF, stable Chronic renal insufficiency H/o skin cancers Final Diagnosis Problems Medical Problems: (1) Hyperglycemia Status: Acute (2) UTI (urinary tract infection) Status: Acute Brief Hospital Course Allergies Allergies Coded Allergies Type Severity Reaction Last Updated Verified Penicillins Allergy Intermediate rash 06/10/15 Yes Vital Signs Vital Signs Date Time Temp Pulse Resp B/P (MAP) Pulse Ox O2 Delivery O2 Flow Rate FiO2 01/10/17 10:30 97.5 83 18 140/68 (92) 94 Room Air 97.5 Lab Results Laboratory Tests Test 01/08/17 16:12 01/08/17 21:00 01/09/17 03:13 01/09/17 07:57 Glucose (Fingerstick) 112 mg/dL (70-99) 363 mg/dL (70-99) 224 mg/dL (70-99) White Blood Count 6.0 x10^3/uL (4.0-11.0) Red Blood Count 3.15 x10^6/uL (4.30-5.70) Hemoglobin 11.0 g/dL (13.0-17.5) Hematocrit 30.9 % (39.0-53.0) Mean Corpuscular Volume 98 fL (79-100) Mean Corpuscular Hemoglobin 35 pg (25-35) Mean Corpuscular Hemoglobin Concent 36 g/dL (31-37) Red Cell Distribution Width 16.4 % (11.5-14.5) Platelet Count 178 x10^3/uL (140-400) Neutrophils (%) (Auto) 67 % (31-73) Lymphocytes (%) (Auto) 22 % (24-48) Monocytes (%) (Auto) 6 % (0-9) Eosinophils (%) (Auto) 4 % (0-3) Basophils (%) (Auto) 1 % (0-3) Neutrophils # (Auto) 4.0 x10^3uL (1.8-7.7) Lymphocytes # (Auto) 1.3 x10^3/uL (1.0-4.8) Monocytes # (Auto) 0.4 x10^3/uL (0.0-1.1) Eosinophils # (Auto) 0.2 x10^3/uL (0.0-0.7) Basophils # (Auto) 0.0 x10^3/uL (0.0-0.2) Sodium Level 137 mmol/L (136-145) Potassium Level 3.2 mmol/L (3.5-5.1) Chloride Level 94 mmol/L (98-107) Carbon Dioxide Level 35 mmol/L (21-32) Anion Gap 8 (6-14) Blood Urea Nitrogen 25 mg/dL (8-26) Creatinine 1.1 mg/dL (0.7-1.3) Estimated GFR (Cockcroft-Gault) 64.2 Glucose Level 211 mg/dL (70-99) Calcium Level 8.7 mg/dL (8.5-10.1) Test 01/09/17 11:55 01/09/17 14:24 01/09/17 15:50 01/09/17 21:16 Glucose (Fingerstick) 297 mg/dL (70-99) 290 mg/dL (70-99) 296 mg/dL (70-99) 177 mg/dL (70-99) Test 01/10/17 04:45 01/10/17 07:26 01/10/17 11:23 White Blood Count 5.2 x10^3/uL (4.0-11.0) Red Blood Count 3.12 x10^6/uL (4.30-5.70) Hemoglobin 10.8 g/dL (13.0-17.5) Hematocrit 30.6 % (39.0-53.0) Mean Corpuscular Volume 98 fL (79-100) Mean Corpuscular Hemoglobin 35 pg (25-35) Mean Corpuscular Hemoglobin Concent 36 g/dL (31-37) Red Cell Distribution Width 16.3 % (11.5-14.5) Platelet Count 164 x10^3/uL (140-400) Neutrophils (%) (Auto) 64 % (31-73) Lymphocytes (%) (Auto) 25 % (24-48) Monocytes (%) (Auto) 6 % (0-9) Eosinophils (%) (Auto) 4 % (0-3) Basophils (%) (Auto) 1 % (0-3) Neutrophils # (Auto) 3.3 x10^3uL (1.8-7.7) Lymphocytes # (Auto) 1.3 x10^3/uL (1.0-4.8) Monocytes # (Auto) 0.3 x10^3/uL (0.0-1.1) Eosinophils # (Auto) 0.2 x10^3/uL (0.0-0.7) Basophils # (Auto) 0.0 x10^3/uL (0.0-0.2) Sodium Level 135 mmol/L (136-145) Potassium Level 3.7 mmol/L (3.5-5.1) Chloride Level 94 mmol/L (98-107) Carbon Dioxide Level 34 mmol/L (21-32) Anion Gap 7 (6-14) Blood Urea Nitrogen 27 mg/dL (8-26) Creatinine 1.0 mg/dL (0.7-1.3) Estimated GFR (Cockcroft-Gault) 71.7 Glucose Level 187 mg/dL (70-99) Calcium Level 8.8 mg/dL (8.5-10.1) Glucose (Fingerstick) 183 mg/dL (70-99) 173 mg/dL (70-99) Laboratory Tests Test 01/09/17 14:24 01/09/17 15:50 01/09/17 21:16 01/10/17 04:45 Glucose (Fingerstick) 290 mg/dL (70-99) 296 mg/dL (70-99) 177 mg/dL (70-99) White Blood Count 5.2 x10^3/uL (4.0-11.0) Red Blood Count 3.12 x10^6/uL (4.30-5.70) Hemoglobin 10.8 g/dL (13.0-17.5) Hematocrit 30.6 % (39.0-53.0) Mean Corpuscular Volume 98 fL (79-100) Mean Corpuscular Hemoglobin 35 pg (25-35) Mean Corpuscular Hemoglobin Concent 36 g/dL (31-37) Red Cell Distribution Width 16.3 % (11.5-14.5) Platelet Count 164 x10^3/uL (140-400) Neutrophils (%) (Auto) 64 % (31-73) Lymphocytes (%) (Auto) 25 % (24-48) Monocytes (%) (Auto) 6 % (0-9) Eosinophils (%) (Auto) 4 % (0-3) Basophils (%) (Auto) 1 % (0-3) Neutrophils # (Auto) 3.3 x10^3uL (1.8-7.7) Lymphocytes # (Auto) 1.3 x10^3/uL (1.0-4.8) Monocytes # (Auto) 0.3 x10^3/uL (0.0-1.1) Eosinophils # (Auto) 0.2 x10^3/uL (0.0-0.7) Basophils # (Auto) 0.0 x10^3/uL (0.0-0.2) Sodium Level 135 mmol/L (136-145) Potassium Level 3.7 mmol/L (3.5-5.1) Chloride Level 94 mmol/L (98-107) Carbon Dioxide Level 34 mmol/L (21-32) Anion Gap 7 (6-14) Blood Urea Nitrogen 27 mg/dL (8-26) Creatinine 1.0 mg/dL (0.7-1.3) Estimated GFR (Cockcroft-Gault) 71.7 Glucose Level 187 mg/dL (70-99) Calcium Level 8.8 mg/dL (8.5-10.1) Test 01/10/17 07:26 01/10/17 11:23 Glucose (Fingerstick) 183 mg/dL (70-99) 173 mg/dL (70-99) Brief Hospital Course Mr. Lee is a 81 old male who either came from CT or SNU, admitted for hyperglycemia and uTI, Urinecx, GNR sensitive to PCN but resistant to all else, I have Rxd PO Amox - Verified with pt, non anaphylactic rxn, happened at age 19. Dtr wants LTAc - SW arranging this, will happen today, Pt seen and examined, 2 notes today COnsult: none BS - good, no change in home regimen 65 qhs and 35 TID with meals Discharge Information Condition at Discharge: Improved, Stable Disposition/Orders: Other (LTAC) Scheduled Atorvastatin Calcium (Atorvastatin Calcium), 20 MG PO HS, (Reported) Azathioprine (Azathioprine), 100 MG PO BID, (Reported) Cholecalciferol (Vitamin D3) (Vitamin D3), 1,000 UNIT PO DAILY, (Reported) Finasteride (Finasteride), 1 TAB PO DAILY, (Reported) Furosemide (Furosemide), 40 MG PO DAILY Furosemide (Furosemide), 1 TAB PO DAILY16, (Reported) Insulin Aspart (Novolog Flexpen), 35 UNIT SQ TIDWMEALS, (Reported) Insulin Detemir (Levemir Flextouch), 65 UNIT SQ HS, (Reported) Losartan Potassium (Cozaar), 25 MG PO DAILY Meloxicam (Meloxicam), 1 TAB PO DAILY, (Reported) Menthol/Zinc Oxide (Calmoseptine Ointment), 3.5 GM TP BID, (Reported) Metformin Hcl (Metformin Hcl), 1 TAB PO BID, (Reported) Metolazone (Metolazone), 2.5 MG PO DAILY, (Reported) Mirtazapine (Remeron), 1 TAB PO QHS, (Reported) Nystatin (Nystatin), 1 AFIA TP BID, (Reported) Nystatin/Triamcin (Nystatin-Triamcinolone Cream), 1 AFIA TP BID, (Reported) Potassium Chloride (Klor-Con M20), 20 MEQ PO DAILYWBKFT Tamsulosin Hcl (Tamsulosin Hcl), 0.4 MG PO HS, (Reported) Verapamil Hcl (Verapamil Er), 360 MG PO DAILY Scheduled PRN Acetaminophen (Tylenol), 650 MG PO Q6HRS PRN for PAIN, (Reported) Albuterol Sulfate (Proventil Hfa Inhaler), 2 PUFF IH PRN Q4HRS PRN for WHEEZING, (Reported) Alprazolam (Alprazolam), 0.5 MG PO BID PRN for ANXIETY / AGITATION, (Reported) Bisacodyl (Dulcolax), 10 MG RC PRN DAILY PRN for CONSTIPATION, (Reported) Loperamide Hcl/Simethicone (Imodium Multi-Symptom Rel Cplt), 1 EACH PO PRN BID PRN for DIARRHEA, (Reported) Magnesium Hydroxide (Milk Of Magnesia), 30 ML PO PRN DAILY PRN for CONSTIPATION, (Reported) SHERLEY DOMINGUEZ MD January 10, 2017 12:10
[2017-01-10 14:40] VITALS: BP 115/62
== END 2017-01-10 16:15 | DRG 637 ==
LOC: ER 10:52 → 5 NORTH 12:56
PROVIDERS: ADMIT Internal Medicine; ATTEND Internal Medicine
DX: E11.65 Type 2 diabetes mellitus with hyperglycemia (principal); N17.0 Acute kidney failure with tubular necrosis; N39.0 Urinary tract infection, site not specified; I13.0 Hypertensive heart and chronic kidney disease with heart failure and stage 1 through stage 4 chronic kidney disease, or unspecified chronic kidney disease; E78.00 Pure hypercholesterolemia, unspecified; E11.22 Type 2 diabetes mellitus with diabetic chronic kidney disease; E78.5 Hyperlipidemia, unspecified; F41.9 Anxiety disorder, unspecified; F32.9 Major depressive disorder, single episode, unspecified; M19.90 Unspecified osteoarthritis, unspecified site; G70.00 Myasthenia gravis without (acute) exacerbation; K21.9 Gastro-esophageal reflux disease without esophagitis; N18.9 Chronic kidney disease, unspecified; I50.9 Heart failure, unspecified; Z96.659 Presence of unspecified artificial knee joint; Z88.0 Allergy status to penicillin; Z91.19 Patient's noncompliance with other medical treatment and regimen; Z90.49 Acquired absence of other specified parts of digestive tract; Z85.828 Personal history of other malignant neoplasm of skin; Z82.49 Family history of ischemic heart disease and other diseases of the circulatory system
CPT/HCPCS: 36415; 71010; 80048; 80053; 81001; 82947; 83880; 84484; 85027; 87086; 87186; 87641; 93005; 96360; 96372; J1815; J1956; J7040; J7500; 97110; 97535; 99285-25

== ENCOUNTER 2017-07-02 09:12 | Inpatient (IN) | payer MEDICARE ==
[~2017-07-02] VITALS: Ht 180.3 cm; Wt 124.1 kg
[2017-07-02] VITALS (9 sets, daily range): BP systolic 94–118; BP diastolic 39–67
[~2017-07-02 09:12] MED LIST changes: +ACET325T9 PO; +FURO20TA3 PO; -LEVO500T38 PO; +LEVO500T59 PO; -MAGN400O4 PO; +MAGN400O7 PO; -MELO-150 PO; +MELO15TA23 PO; +MENT3.5O TP; +METO2.5T PO; +NYST15CR2 TP
[2017-07-02] MEDS ORDERED: IPRATRPIUM/ALBUTEROL 0.5/2.5MG 3 ML NEBU. NEB ONE (09:30)
--- NOTE | 2017-07-02 09:36 | PHYS DOC ---
Past Medical History Past Medical History: Anxiety, Arthritis, CHF, Depression, Diabetes-Type II, GERD, High Cholesterol, Hypertension, Renal Disease, UTI Additional Past Medical Histor: PROSTATE, myasthenia gravis, murmur Past Surgical History: Cholecystectomy, Knee Replacement, Tonsillectomy Alcohol Use: None Drug Use: None Adult General Chief Complaint Chief Complaint: SHORTNESS OF BREATH HPI HPI Patient is a 81 year old male presents to the emergency department via EMS from [facility]. Patient states he was having SOA this morning, EMS did provided supplemental O2 while en-route. Patient is alert and oriented, able to talk in greater than 4 word sentences. He has a low grade fever 99 orally. Patient denies cough and congestion. Denies history of lung issues however does have a history of CHF. Patient with 1+ lower leg edema noted. Review of Systems Review of Systems Constitutional: Denies fever or chills [] Eyes: Denies change in visual acuity, redness, or eye pain [] HENT: Denies nasal congestion or sore throat [] Respiratory: Denies cough C/o shortness of breath [] Cardiovascular: No additional information not addressed in HPI [] GI: Denies abdominal pain, nausea, vomiting, bloody stools or diarrhea [] : Denies dysuria or hematuria [] Musculoskeletal: Denies back pain or joint pain [] Integument: Denies rash or skin lesions [] Neurologic: Denies headache, focal weakness or sensory changes [] Endocrine: Denies polyuria or polydipsia [] All other systems were reviewed and found to be within normal limits, except as documented in this note. Current Medications Current Medications Current Medications Medications (Trade) Dose Ordered Sig/Wendy Start Time Stop Time Status Last Admin Dose Admin Albuterol/ Ipratropium (Duoneb) 3 ml 1X ONCE 07/02/17 09:30 07/02/17 09:31 DC 07/02/17 09:32 3 ML Allergies Allergies Allergies Coded Allergies Type Severity Reaction Last Updated Verified Penicillins Allergy Intermediate rash 06/10/15 Yes Physical Exam Physical Exam Constitutional: Well developed, well nourished, no acute distress, non-toxic appearance. [] HENT: Normocephalic, atraumatic, bilateral external ears normal, oropharynx moist, no oral exudates, nose normal. [] Eyes: PERRLA, EOMI, conjunctiva normal, no discharge. [] Neck: Normal range of motion, no tenderness, supple, no stridor. [] Cardiovascular:Heart rate regular rhythm, no murmur [] Lungs & Thorax: Bilateral breath sounds clear per anterior lobes with wheezes noted in posterior lobes. Abdomen: Bowel sounds normal, soft, no tenderness, no masses, no pulsatile masses. [] Skin: Warm, dry, no erythema, no rash. [] Extremities: No tenderness, no cyanosis, no clubbing, ROM intact, lower leg edema noted 1+ peripheral pulses 2+ cap refill brisk < 2 seconds Neurologic: Alert and oriented X 3, normal motor function, normal sensory function, no focal deficits noted. [] Psychologic: Affect normal, judgement normal, mood normal. [] Current Patient Data Vital Signs Vital Signs Date Time Temp Pulse Resp B/P (MAP) Pulse Ox O2 Delivery O2 Flow Rate FiO2 07/02/17 09:35 94 Room Air 07/02/17 09:24 99.0 80 15 170/113 (132) 99.0 Lab Values Laboratory Tests Test 07/02/17 09:35 07/02/17 09:55 07/02/17 10:15 White Blood Count 1.1 x10^3/uL (4.0-11.0) *L Red Blood Count 1.46 x10^6/uL (4.30-5.70) L Hemoglobin 5.1 g/dL (13.0-17.5) *L Hematocrit 14.5 % (39.0-53.0) *L Mean Corpuscular Volume 100 fL (79-100) Mean Corpuscular Hemoglobin 35 pg (25-35) Mean Corpuscular Hemoglobin Concent 35 g/dL (31-37) Red Cell Distribution Width 15.4 % (11.5-14.5) H Platelet Count 21 x10^3/uL (140-400) *L Neutrophils (%) (Auto) 25 % (31-73) L Lymphocytes (%) (Auto) 67 % (24-48) H Monocytes (%) (Auto) 1 % (0-9) Eosinophils (%) (Auto) 6 % (0-3) H Basophils (%) (Auto) 0 % (0-3) Neutrophils # (Auto) 0.3 x10^3uL (1.8-7.7) L Lymphocytes # (Auto) 0.8 x10^3/uL (1.0-4.8) L Monocytes # (Auto) 0.0 x10^3/uL (0.0-1.1) Eosinophils # (Auto) 0.1 x10^3/uL (0.0-0.7) Basophils # (Auto) 0.0 x10^3/uL (0.0-0.2) Segmented Neutrophils % 28 % (35-66) L Lymphocytes % 66 % (24-48) H Monocytes % 2 % (0-10) Eosinophils % 4 % (0-5) Platelet Estimate Decreased (ADEQUATE) Sodium Level 139 mmol/L (136-145) Potassium Level 3.3 mmol/L (3.5-5.1) L Chloride Level 96 mmol/L (98-107) L Carbon Dioxide Level 37 mmol/L (21-32) H Anion Gap 6 (6-14) Blood Urea Nitrogen 43 mg/dL (8-26) H Creatinine 1.5 mg/dL (0.7-1.3) H Estimated GFR (Cockcroft-Gault) 44.9 BUN/Creatinine Ratio 29 (6-20) H Glucose Level 176 mg/dL (70-99) H Calcium Level 9.2 mg/dL (8.5-10.1) Total Bilirubin 0.3 mg/dL (0.2-1.0) Aspartate Amino Transferase (AST) 10 U/L (15-37) L Alanine Aminotransferase (ALT) 11 U/L (16-63) L Alkaline Phosphatase 81 U/L (46-116) RU-Rup-G-Type Natriuretic Peptide 508 pg/mL (0-449) H Total Protein 7.2 g/dL (6.4-8.2) Albumin 3.2 g/dL (3.4-5.0) L Albumin/Globulin Ratio 0.8 (1.0-1.7) L Urine Collection Type U cath Urine Color Yellow Urine Clarity Clear Urine pH 6.0 Urine Specific [place] 1.015 Urine Protein Negative mg/dL (NEG-TRACE) Urine Glucose (UA) Negative mg/dL (NEG) Urine Ketones (Stick) Negative mg/dL (NEG) Urine Blood Small (NEG) Urine Nitrite Negative (NEG) Urine Bilirubin Negative (NEG) Urine Urobilinogen Dipstick 0.2 mg/dL (0.2 mg/dL) Urine Leukocyte Esterase Negative (NEG) Urine RBC 3-5 /HPF (0-2) Urine WBC Occ /HPF (0-4) Urine Transitional Epithelial Cells Occ /LPF Urine Amorphous Sediment Present /HPF Urine Bacteria 0 /HPF (0-FEW) Stool Occult Blood Negative (NEG) Laboratory Tests 07/02/17 09:35 Laboratory Tests 07/02/17 09:35 EKG EKG EKG completed at 0925 with HR 85 SR no STEMI per Dr Cheung[] Radiology/Procedures Radiology/Procedures [] Course & Med Decision Making Course & Med Decision Making Pertinent Labs and Imaging studies reviewed. (See chart for details) [address] Estes in regards to patient with anemia and SOA. Dr Estes has requested the patient to placed as an inpatient, in [facility]. Dr Estes is aware that 1 unit of blood has been ordered, fecal occult is pending. Patient is aware admission and the need for blood. He agrees with treatment regimen. [] Dragon Disclaimer Dragon Disclaimer This electronic medical record was generated, in whole or in part, using a voice recognition dictation system. Departure Departure Impression: Primary Impression: Shortness of breath Additional Impression: Anemia Disposition: ADMITTED INPATIENT Admitting Physician: Titus Estes Referrals: TERRELL SANDOVAL (PCP) Problem Qualifiers Additional Impression: Anemia Anemia type: unspecified type Qualified Codes: D64.9 - Anemia, unspecified NERISSA MORGAN [employer] Jul 02, 2017 09:36
--- NOTE | 2017-07-02 09:50 | RAD ---
Single view chest radiograph 07/02/2017 Clinical indication: Wheezing, shortness of air. Comparison: Chest 01/07/2017 Findings: Enlargement of the cardiac silhouette without pulmonary venous congestion. No pleural effusion, pneumothorax or focal consolidation. Mild bibasilar atelectasis. 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 There is suggestion of a possible impacted fracture form of the proximal right humerus. Impression: 1. Stable mild cardiomegaly without margaux pulmonary edema. 2. No evidence of consolidative pneumonia. 3. Possible impacted fracture of the proximal right humerus. Clinical correlation is recommended. Dedicated right shoulder radiographs could be obtained for further evaluation. 4. Severe right glenohumeral arthrosis.
[2017-07-02 10:00] LABS: BASO % 0 % (0-3); CALCIUM 9.2 mg/dL (8.5-10.1); CREATININE 1.5 mg/dL (0.7-1.3); EOS % 6 % (0-3); GFR 44.9; LYMPH # 0.8 x10^3/uL (1.0-4.8); LYMPH % 67 % (24-48); MEAN CORPUSCULAR HEMOGLOBIN 35 pg (25-35); MEAN CORPUSCULAR HGB CONC 35 g/dL (31-37); MEAN CORPUSCULAR VOLUME 100 fL (79-100); MONO % 1 % (0-9); NEUT % 25 % (31-73); POTASSIUM 3.3 mmol/L (3.5-5.1); RED BLOOD COUNT 1.46 x10^6/uL (4.30-5.70); RED CELL DISTRIBUTION WIDTH 15.4 % (11.5-14.5)
[2017-07-02 10:07] LABS: ALBUMIN 3.2 g/dL (3.4-5.0); ALBUMIN/GLOBULIN RATIO 0.8 (1.0-1.7); HEMOGLOBIN 5.1 g/dL (13.0-17.5); TOTAL BILIRUBIN 0.3 mg/dL (0.2-1.0); TOTAL PROTEIN 7.2 g/dL (6.4-8.2); WHITE BLOOD COUNT 1.1 x10^3/uL (4.0-11.0)
[2017-07-02 10:08] LABS: HEMATOCRIT 14.5 % (39.0-53.0); PLATELET COUNT 21 x10^3/uL (140-400)
[2017-07-02 10:16] LABS: BILIRUBIN,URINE NEGATIVE (NEG); GLUCOSE,URINE NEGATIVE (NEG); NITRITE,URINE NEGATIVE (NEG); PROTEIN,URINE NEGATIVE (NEG-TRACE); UROBILINOGEN,URINE 0.2 mg/dL (0.2 mg/dL)
[2017-07-02 10:22] LABS: BACTERIA,URINE 0 /HPF (0-FEW); WBC,URINE OCC /HPF (0-4)
[2017-07-02] MEDS ORDERED: diphenhydrAMINE ORAL ELIXIR 12.5 MG/5 ML ML PO PRN (10:30)
[2017-07-02 10:48] LABS: NEG OBC FOB NEG; POS OBC FOB POS
[2017-07-02 11:43] LABS: % EOS 4 % (0-5); PLT ESTIMATE DECREASED (ADEQUATE)
[2017-07-02] MEDS ORDERED: ALLO100T PO (12:50)
[2017-07-02] MEDS ORDERED: ALPR0.5T6 PO (12:50)
--- NOTE | 2017-07-02 13:04 | EKG ---
[facility] [address] [place] [address] Test Date: 2017-07-02 Test Time: 09:25:58 Pat Name: ROSA ROBERSON Department: Room: 250 1 Gender: M Bed And Breakfast Cook: : 1935 Requested By: NERISSA MORGAN Order Number: [id number] Reading MD: Sarthak Mckeon MD Measurements Intervals [place] Rate: 85 P: 0 CT: 168 QRS: -7 QRSD: 92 T: 32 QT: 372 QTc: 443 Interpretive Statements SINUS RHYTHM ATRIAL PREMATURE COMPLEX(ES) Electronically Signed On 07-02-2017 15:33:00 [employer]SE [employer]AFF by Sarthak Mckeon MD
[2017-07-02] MEDS ORDERED: TRAZ50TA15 PO (13:26)
[2017-07-02] MEDS ORDERED: PRED-220 PO (13:26)
[2017-07-02] MEDS ORDERED: VENL75CA6 PO (13:26)
[2017-07-02] MEDS ORDERED: MAGN2400 PO (13:26)
[2017-07-02] MEDS ORDERED: PROVENTIL HFA6.7 GM IH (13:26)
[2017-07-02] MEDS ORDERED: PNEUMOCOCCAL VAX SCREEN BY RX. MC ONE (13:45)
[2017-07-02] MEDS ORDERED: traMADol 50 MG TABLET PO PRN (14:00)
[2017-07-02] MEDS ORDERED: BISACODYL 10 MG SUPP.RECT. RC PRN (14:00)
[2017-07-02] MEDS ORDERED: hydrALAZINE 20 MG/ML VIAL. IVP PRN (14:00)
[2017-07-02] MEDS ORDERED: ALPRAZolam 0.5 MG TABLET PO PRN (14:00)
[2017-07-02] MEDS ORDERED: MORPHINE SULFATE 4 MG/ML DISP.SYRIN. IV PRN (14:00)
[2017-07-02] MEDS ORDERED: ONDANSETRON PF 4 MG/2 ML VIAL. IV PRN (14:00)
[2017-07-02] MEDS ORDERED: POTASSIUM CHLORIDE 20 MEQ TABLET.ER. PO ONE (14:00)
[2017-07-02] MEDS ORDERED: DOCUSATE SODIUM 100 MG CAPSULE. PO PRN (14:00)
[2017-07-02] MEDS ORDERED: DEXTROSE 50% 25 GM / 50ML DISP.SYRIN. IV PRN (14:15)
[2017-07-02] MEDS ORDERED: POTASSIUM CHLORIDE 20 MEQ/15 ML ORAL LIQUID. PO ONE (15:30)
--- NOTE | 2017-07-02 16:17 | PDOC1 ---
History and Physical Date of Admission Date of Admission 07/02/17 Identification/Chief Complaint Chief Complaint sob? Problems: Source Source: Chart review, Patient History of Present Illness History of Present Illness HPI HPI Patient is a 81 year old male presents to the emergency department via EMS from nursing care facility. Pt is a very poor historian, likely has moderate dementia, knows in hosp, said in [facility] hosp, doesnot the year or date. looks very weak, pale, cannot tell me why he is here. Pt denies cough ,SOB, chest pain, N/V, diarrhea. admits he feels weakness. as per ERP, pt was sent by SNF for sob. EMS did provided supplemental O2 while en-route. He has a low grade fever 99 orally. labs showed pancytopenia, labs was not bad 05/2017 from SNF. Past Medical History Cardiovascular: CAD, HTN, Hyperlipidemia GI: GERD Endocrine: Diabetes Past Surgical History Past Surgical History: Total knee replacement Family History Family History: Alzheimer's Disease, Diabetes, Hypertension Social History Smoke: No ALCOHOL: none Current Problem List Problem List Problems Medical Problems: (1) Anemia Status: Acute (2) Shortness of breath Status: Acute Current Medications Current Medications Current Medications Medications (Trade) Dose Ordered Sig/Wendy Start Time Stop Time Status Last Admin Dose Admin Acetaminophen (Tylenol) 650 mg PRN Q6HRS PRN 07/02/17 14:00 Albuterol/ Ipratropium (Duoneb) 3 ml 1X ONCE 07/02/17 09:30 07/02/17 09:31 DC 07/02/17 09:32 3 ML Allopurinol (Zyloprim) 100 mg DAILY 07/03/17 09:00 Alprazolam (Xanax) 0.5 mg BID PRN 07/02/17 14:00 Atorvastatin Calcium (Lipitor) 20 mg HS 07/02/17 21:00 Bisacodyl (Dulcolax Supp) 10 mg PRN DAILY PRN 07/02/17 14:00 Dextrose (Dextrose 50%-Water Syringe) 12.5 gm PRN Q15MIN PRN 07/02/17 14:15 Diphenhydramine HCl (Benadryl Oral Elixir) 12.5 mg 1X PRN PRN 07/02/17 10:30 Docusate Sodium (Colace) 100 mg PRN DAILY PRN 07/02/17 14:00 Finasteride (Proscar) 5 mg DAILY 07/03/17 09:00 Hydralazine HCl (Apresoline Inj) 10 mg PRN Q4HRS PRN 07/02/17 14:00 Insulin Aspart (NovoLOG) 0-9 UNITS TIDWMEALS 07/02/17 17:00 Losartan Potassium (Cozaar) 25 mg DAILY 07/03/17 09:00 Mirtazapine (Remeron) 15 mg QHS 07/02/17 21:00 Morphine Sulfate 2 mg PRN Q2HR PRN 07/02/17 14:00 Nystatin (Nystop) 1 royal BID 07/02/17 21:00 07/02/17 21:00 DC Ondansetron HCl (Zofran) 4 mg PRN Q6HRS PRN 07/02/17 14:00 Pneumococcal Polyvalent Vaccine (Do NOT chart on this placeholder) 1 each 1X ONCE 07/02/17 13:45 07/02/17 13:46 UNV Potassium Chloride (KCl Oral Soln) 40 meq 1X ONCE 07/02/17 15:30 07/02/17 15:35 DC Potassium Chloride (Klor-Con) 20 meq [id number] 07/03/17 08:00 Prednisone (Prednisone) 5 mg DAILY 07/03/17 09:00 Tamsulosin HCl (Flomax) 0.4 mg HS 07/02/17 21:00 Tramadol HCl (Ultram) 50 mg PRN Q6HRS PRN 07/02/17 14:00 Trazodone HCl (Desyrel) 75 mg HS 07/02/17 21:00 Venlafaxine HCl (Effexor Xr) 75 mg DAILY 07/03/17 09:00 Verapamil HCl (Calan Sr) 360 mg DAILY 07/03/17 09:00 Vitamin D (Vitamin D3) 1,000 unit DAILY 07/03/17 09:00 Allergies Allergies Allergies Coded Allergies Type Severity Reaction Last Updated Verified Penicillins Allergy Intermediate rash 06/10/15 Yes ROS Review of System CONSTITUTIONAL: No fever or chills EYES: No recent changes SKIN: No rash or itching CARDIOVASCULAR: No chest pain, syncope, palpitations, or edema RESPIRATORY: No SOB or cough GASTROINTESTINAL: No nausea, vomiting or abdominal pain NEUROLOGICAL: No headaches or weakness ENDOCRINE: No cold or heat intolerance GENITOURINARY: No urgency or frequency of urination MUSCULOSKELETAL: No back pain or joint pain LYMPHATICS: No enlarged lymph nodes PSYCHIATRIC: No anxiety or depression Physical Exam Physical Exam GEN.: No apparent distress. Alert and oriented. very pale, aaox1 to person. calm, no sob. HEENT: Head is normocephalic, atraumatic NECK: Supple. LUNGS: Clear to auscultation. HEART: RRR, S1, S2 present. Peripheral pulses intact ABDOMEN: Soft, nontender. Positive bowel sounds. EXTREMITIES: Without any cyanosis. NEUROLOGIC: Normal speech, normal tone PSYCHIATRIC: Normal affect, normal mood. SKIN: No ulcerations Vitals Vitals Vital Signs Date Time Temp Pulse Resp B/P (MAP) Pulse Ox O2 Delivery O2 Flow Rate FiO2 07/02/17 15:30 98.3 70 16 113/54 98.3 07/02/17 12:00 100 Room Air 07/02/17 11:45 2.0 Labs Labs Laboratory Tests Test 07/02/17 09:35 07/02/17 09:55 07/02/17 10:15 07/02/17 12:34 White Blood Count 1.1 x10^3/uL (4.0-11.0) Red Blood Count 1.46 x10^6/uL (4.30-5.70) Hemoglobin 5.1 g/dL (13.0-17.5) Hematocrit 14.5 % (39.0-53.0) Mean Corpuscular Volume 100 fL (79-100) Mean Corpuscular Hemoglobin 35 pg (25-35) Mean Corpuscular Hemoglobin Concent 35 g/dL (31-37) Red Cell Distribution Width 15.4 % (11.5-14.5) Platelet Count 21 x10^3/uL (140-400) Neutrophils (%) (Auto) 25 % (31-73) Lymphocytes (%) (Auto) 67 % (24-48) Monocytes (%) (Auto) 1 % (0-9) Eosinophils (%) (Auto) 6 % (0-3) Basophils (%) (Auto) 0 % (0-3) Neutrophils # (Auto) 0.3 x10^3uL (1.8-7.7) Lymphocytes # (Auto) 0.8 x10^3/uL (1.0-4.8) Monocytes # (Auto) 0.0 x10^3/uL (0.0-1.1) Eosinophils # (Auto) 0.1 x10^3/uL (0.0-0.7) Basophils # (Auto) 0.0 x10^3/uL (0.0-0.2) Segmented Neutrophils % 28 % (35-66) Lymphocytes % 66 % (24-48) Monocytes % 2 % (0-10) Eosinophils % 4 % (0-5) Platelet Estimate Decreased (ADEQUATE) Sodium Level 139 mmol/L (136-145) Potassium Level 3.3 mmol/L (3.5-5.1) Chloride Level 96 mmol/L (98-107) Carbon Dioxide Level 37 mmol/L (21-32) Anion Gap 6 (6-14) Blood Urea Nitrogen 43 mg/dL (8-26) Creatinine 1.5 mg/dL (0.7-1.3) Estimated GFR (Cockcroft-Gault) 44.9 BUN/Creatinine Ratio 29 (6-20) Glucose Level 176 mg/dL (70-99) Calcium Level 9.2 mg/dL (8.5-10.1) Total Bilirubin 0.3 mg/dL (0.2-1.0) Aspartate Amino Transf (AST/SGOT) 10 U/L (15-37) Alanine Aminotransferase (ALT/SGPT) 11 U/L (16-63) Alkaline Phosphatase 81 U/L (46-116) ST-Tlj-S-Type Natriuretic Peptide 508 pg/mL (0-449) Total Protein 7.2 g/dL (6.4-8.2) Albumin 3.2 g/dL (3.4-5.0) Albumin/Globulin Ratio 0.8 (1.0-1.7) Urine Collection Type U cath Urine Color Yellow Urine Clarity Clear Urine pH 6.0 Urine Specific [place] 1.015 Urine Protein Negative mg/dL (NEG-TRACE) Urine Glucose (UA) Negative mg/dL (NEG) Urine Ketones (Stick) Negative mg/dL (NEG) Urine Blood Small (NEG) Urine Nitrite Negative (NEG) Urine Bilirubin Negative (NEG) Urine Urobilinogen Dipstick 0.2 mg/dL (0.2 mg/dL) Urine Leukocyte Esterase Negative (NEG) Urine RBC 3-5 /HPF (0-2) Urine WBC Occ /HPF (0-4) Urine Transitional Epithelial Cells Occ /LPF Urine Amorphous Sediment Present /HPF Urine Bacteria 0 /HPF (0-FEW) Stool Occult Blood Negative (NEG) Glucose (Fingerstick) 121 mg/dL (70-99) Laboratory Tests Test 07/02/17 09:35 07/02/17 09:55 07/02/17 10:15 07/02/17 12:34 White Blood Count 1.1 x10^3/uL (4.0-11.0) Red Blood Count 1.46 x10^6/uL (4.30-5.70) Hemoglobin 5.1 g/dL (13.0-17.5) Hematocrit 14.5 % (39.0-53.0) Mean Corpuscular Volume 100 fL (79-100) Mean Corpuscular Hemoglobin 35 pg (25-35) Mean Corpuscular Hemoglobin Concent 35 g/dL (31-37) Red Cell Distribution Width 15.4 % (11.5-14.5) Platelet Count 21 x10^3/uL (140-400) Neutrophils (%) (Auto) 25 % (31-73) Lymphocytes (%) (Auto) 67 % (24-48) Monocytes (%) (Auto) 1 % (0-9) Eosinophils (%) (Auto) 6 % (0-3) Basophils (%) (Auto) 0 % (0-3) Neutrophils # (Auto) 0.3 x10^3uL (1.8-7.7) Lymphocytes # (Auto) 0.8 x10^3/uL (1.0-4.8) Monocytes # (Auto) 0.0 x10^3/uL (0.0-1.1) Eosinophils # (Auto) 0.1 x10^3/uL (0.0-0.7) Basophils # (Auto) 0.0 x10^3/uL (0.0-0.2) Segmented Neutrophils % 28 % (35-66) Lymphocytes % 66 % (24-48) Monocytes % 2 % (0-10) Eosinophils % 4 % (0-5) Platelet Estimate Decreased (ADEQUATE) Sodium Level 139 mmol/L (136-145) Potassium Level 3.3 mmol/L (3.5-5.1) Chloride Level 96 mmol/L (98-107) Carbon Dioxide Level 37 mmol/L (21-32) Anion Gap 6 (6-14) Blood Urea Nitrogen 43 mg/dL (8-26) Creatinine 1.5 mg/dL (0.7-1.3) Estimated GFR (Cockcroft-Gault) 44.9 BUN/Creatinine Ratio 29 (6-20) Glucose Level 176 mg/dL (70-99) Calcium Level 9.2 mg/dL (8.5-10.1) Total Bilirubin 0.3 mg/dL (0.2-1.0) Aspartate Amino Transf (AST/SGOT) 10 U/L (15-37) Alanine Aminotransferase (ALT/SGPT) 11 U/L (16-63) Alkaline Phosphatase 81 U/L (46-116) OJ-Qmi-O-Type Natriuretic Peptide 508 pg/mL (0-449) Total Protein 7.2 g/dL (6.4-8.2) Albumin 3.2 g/dL (3.4-5.0) Albumin/Globulin Ratio 0.8 (1.0-1.7) Urine Collection Type U cath Urine Color Yellow Urine Clarity Clear Urine pH 6.0 Urine Specific [place] 1.015 Urine Protein Negative mg/dL (NEG-TRACE) Urine Glucose (UA) Negative mg/dL (NEG) Urine Ketones (Stick) Negative mg/dL (NEG) Urine Blood Small (NEG) Urine Nitrite Negative (NEG) Urine Bilirubin Negative (NEG) Urine Urobilinogen Dipstick 0.2 mg/dL (0.2 mg/dL) Urine Leukocyte Esterase Negative (NEG) Urine RBC 3-5 /HPF (0-2) Urine WBC Occ /HPF (0-4) Urine Transitional Epithelial Cells Occ /LPF Urine Amorphous Sediment Present /HPF Urine Bacteria 0 /HPF (0-FEW) Stool Occult Blood Negative (NEG) Glucose (Fingerstick) 121 mg/dL (70-99) VTE Prophylaxis Ordered VTE Prophylaxis Devices: Yes VTE Pharmacological Prophylaxi: No Assessment/Plan Assessment/Plan generalized weakness pancytopenia, not clear etiology, on Imuran not sure for what moderate to severe dementia baseline likely h/o grade I CHF htn og, vasomotor DM2 on insulin ckd 3 mild malnutrition HLD GERD H/O MG? BPH depression SNF resident bed sore stage 2 hypokalemia PLAN: onco consult 2 u PRBC transfusion today hold most home meds, including high dose insulin, lasix, losartan labs tmr echo PTOT SSI wound care replete K waiting to talk to daughter when she comes for PMH admit 2 nights BRENDA SHEN MD Jul 02, 2017 16:17
[2017-07-02] MEDS: INSULIN ASPART 300 UNITS/3 ML INSULN.PEN SQ SCH (18:25)
[2017-07-02] MEDS: traZODone 50 MG TABLET. PO SCH (20:28)
[2017-07-02] MEDS: MIRTAZAPINE 15 MG TABLET PO SCH (20:28)
[2017-07-02] MEDS: ATORVASTATIN CALCIUM 20 MG TABLET PO SCH (20:29)
[2017-07-02] MEDS: TAMSULOSIN 0.4 MG CAP.ER.24H. PO SCH (20:29)
[2017-07-02] MEDS: NYSTATIN TOPICAL POWDER 15GM BOTTLE. TP SCH (20:33)
[2017-07-02] MEDS ORDERED: NYSTATIN TOPICAL POWDER 15GM BOTTLE. TP SCH (21:00)
[2017-07-03] VITALS (13 sets, daily range): BP systolic 92–127; BP diastolic 23–59
[2017-07-03] MEDS: INSULIN ASPART 300 UNITS/3 ML INSULN.PEN SQ SCH ×3 (08:00→16:25)
[2017-07-03 08:11] LABS: BASO % 0 % (0-3); EOS % 10 % (0-3); LYMPH # 0.8 x10^3/uL (1.0-4.8); LYMPH % 63 % (24-48); MEAN CORPUSCULAR HEMOGLOBIN 35 pg (25-35); MEAN CORPUSCULAR HGB CONC 36 g/dL (31-37); MEAN CORPUSCULAR VOLUME 98 fL (79-100); MONO % 2 % (0-9); NEUT % 24 % (31-73); RED BLOOD COUNT 1.71 x10^6/uL (4.30-5.70); RED CELL DISTRIBUTION WIDTH 16.4 % (11.5-14.5)
[2017-07-03 08:26] LABS: HEMATOCRIT 16.8 % (39.0-53.0); WHITE BLOOD COUNT 1.2 x10^3/uL (4.0-11.0)
[2017-07-03 08:29] LABS: % SAT IRON 88 % (15-34); PLATELET COUNT 19 x10^3/uL (140-400)
[2017-07-03 08:31] LABS: IRON,SERUM 200 ug/dL (65-175)
[2017-07-03 08:42] LABS: CALCIUM 9.3 mg/dL (8.5-10.1); CREATININE 1.2 mg/dL (0.7-1.3); GFR 58.1; POTASSIUM 3.6 mmol/L (3.5-5.1)
[2017-07-03] MEDS ORDERED: LOSARTAN POTASSIUM 25 MG TABLET. PO SCH (09:00)
[2017-07-03] MEDS: VERAPAMIL SR 180 MG TABLET.ER. PO SCH (09:35)
[2017-07-03] MEDS: VENLAFAXINE XR 37.5 MG CAP.ER.24H. PO SCH (09:35)
[2017-07-03] MEDS: CHOLECALCIFEROL (VITAMIN D3) 1,000 UNIT TABLET PO SCH (09:35)
[2017-07-03] MEDS: POTASSIUM CHLORIDE 20 MEQ TABLET.ER. PO SCH (09:35)
[2017-07-03] MEDS: predniSONE 10 MG TABLET PO SCH (09:36)
[2017-07-03] MEDS: NYSTATIN TOPICAL POWDER 15GM BOTTLE. TP SCH ×2 (09:36→20:53)
[2017-07-03] MEDS: FINASTERIDE 5 MG TABLET. PO SCH (09:36)
[2017-07-03] MEDS: ALLOPURINOL 100 MG TABLET. PO SCH (09:36)
--- NOTE | 2017-07-03 11:48 | PDOC ---
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 CHF htn og, vasomotor DM2 on insulin ckd 3 mild malnutrition HLD GERD BPH depression SNF resident sacral ulcer, stage 2 on admit hypokalemia History of Present Illness History of Present Illness onco consult 2 u PRBC transfusion today hold most home meds, including high dose insulin, lasix, losartan labs tmr echo PTOT SSI wound care replete K waiting to talk to daughter when she comes for PMH admit 2 nights Vitals Vitals Vital Signs Date Time Temp Pulse Resp B/P (MAP) Pulse Ox O2 Delivery O2 Flow Rate FiO2 07/03/17 11:37 97.1 62 18 113/57 97.1 07/03/17 10:27 94 Nasal Cannula 2.0 Physical Exam General: Alert, Cooperative, No acute distress, Other (disoriented 1/4, pleasant and talkative) Lungs: Clear, Other Abdomen: Normal bowel sounds Extremities: No clubbing, No cyanosis Skin: No breakdown, Other (sacral ulcer, ) Labs LABS Laboratory Tests Test 07/02/17 12:30 07/02/17 12:34 07/02/17 16:55 07/02/17 20:45 Nasal Screen MRSA (PCR) Positive (Negative) Glucose (Fingerstick) 121 mg/dL (70-99) 196 mg/dL (70-99) 206 mg/dL (70-99) Test 07/03/17 07:28 07/03/17 07:44 07/03/17 11:24 White Blood Count 1.2 x10^3/uL (4.0-11.0) Red Blood Count 1.71 x10^6/uL (4.30-5.70) Hemoglobin 6.0 g/dL (13.0-17.5) Hematocrit 16.8 % (39.0-53.0) Mean Corpuscular Volume 98 fL (79-100) Mean Corpuscular Hemoglobin 35 pg (25-35) Mean Corpuscular Hemoglobin Concent 36 g/dL (31-37) Red Cell Distribution Width 16.4 % (11.5-14.5) Platelet Count 19 x10^3/uL (140-400) Neutrophils (%) (Auto) 24 % (31-73) Lymphocytes (%) (Auto) 63 % (24-48) Monocytes (%) (Auto) 2 % (0-9) Eosinophils (%) (Auto) 10 % (0-3) Basophils (%) (Auto) 0 % (0-3) Neutrophils # (Auto) 0.3 x10^3uL (1.8-7.7) Lymphocytes # (Auto) 0.8 x10^3/uL (1.0-4.8) Monocytes # (Auto) 0.0 x10^3/uL (0.0-1.1) Eosinophils # (Auto) 0.1 x10^3/uL (0.0-0.7) Basophils # (Auto) 0.0 x10^3/uL (0.0-0.2) Sodium Level 141 mmol/L (136-145) Potassium Level 3.6 mmol/L (3.5-5.1) Chloride Level 101 mmol/L (98-107) Carbon Dioxide Level 36 mmol/L (21-32) Anion Gap 4 (6-14) Blood Urea Nitrogen 36 mg/dL (8-26) Creatinine 1.2 mg/dL (0.7-1.3) Estimated GFR (Cockcroft-Gault) 58.1 Glucose Level 168 mg/dL (70-99) Calcium Level 9.3 mg/dL (8.5-10.1) Iron Level 200 ug/dL (65-175) Total Iron Binding Capacity 227 ug/dL (250-450) Iron Saturation 88 % (15-34) Ferritin 461 ng/mL (26-388) Glucose (Fingerstick) 164 mg/dL (70-99) 200 mg/dL (70-99) Review of Systems Review of Systems no n/v/d ate breakfast, Assessment and Plan Assessmemt and Plan Problems Medical Problems: (1) Anemia Status: Acute (2) Shortness of breath Status: Acute Problems: Comment Review of Relevant I have reviewed the following items zuly (where applicable) has been applied. Labs Laboratory Tests Test 07/02/17 09:35 07/02/17 09:55 07/02/17 10:15 07/02/17 12:30 White Blood Count 1.1 x10^3/uL (4.0-11.0) Red Blood Count 1.46 x10^6/uL (4.30-5.70) Hemoglobin 5.1 g/dL (13.0-17.5) Hematocrit 14.5 % (39.0-53.0) Mean Corpuscular Volume 100 fL (79-100) Mean Corpuscular Hemoglobin 35 pg (25-35) Mean Corpuscular Hemoglobin Concent 35 g/dL (31-37) Red Cell Distribution Width 15.4 % (11.5-14.5) Platelet Count 21 x10^3/uL (140-400) Neutrophils (%) (Auto) 25 % (31-73) Lymphocytes (%) (Auto) 67 % (24-48) Monocytes (%) (Auto) 1 % (0-9) Eosinophils (%) (Auto) 6 % (0-3) Basophils (%) (Auto) 0 % (0-3) Neutrophils # (Auto) 0.3 x10^3uL (1.8-7.7) Lymphocytes # (Auto) 0.8 x10^3/uL (1.0-4.8) Monocytes # (Auto) 0.0 x10^3/uL (0.0-1.1) Eosinophils # (Auto) 0.1 x10^3/uL (0.0-0.7) Basophils # (Auto) 0.0 x10^3/uL (0.0-0.2) Segmented Neutrophils % 28 % (35-66) Lymphocytes % 66 % (24-48) Monocytes % 2 % (0-10) Eosinophils % 4 % (0-5) Platelet Estimate Decreased (ADEQUATE) Sodium Level 139 mmol/L (136-145) Potassium Level 3.3 mmol/L (3.5-5.1) Chloride Level 96 mmol/L (98-107) Carbon Dioxide Level 37 mmol/L (21-32) Anion Gap 6 (6-14) Blood Urea Nitrogen 43 mg/dL (8-26) Creatinine 1.5 mg/dL (0.7-1.3) Estimated GFR (Cockcroft-Gault) 44.9 BUN/Creatinine Ratio 29 (6-20) Glucose Level 176 mg/dL (70-99) Calcium Level 9.2 mg/dL (8.5-10.1) Total Bilirubin 0.3 mg/dL (0.2-1.0) Aspartate Amino Transf (AST/SGOT) 10 U/L (15-37) Alanine Aminotransferase (ALT/SGPT) 11 U/L (16-63) Alkaline Phosphatase 81 U/L (46-116) JR-Szt-O-Type Natriuretic Peptide 508 pg/mL (0-449) Total Protein 7.2 g/dL (6.4-8.2) Albumin 3.2 g/dL (3.4-5.0) Albumin/Globulin Ratio 0.8 (1.0-1.7) Prostate Specific Antigen 0.15 ng/mL (0.00-4.00) Urine Collection Type U cath Urine Color Yellow Urine Clarity Clear Urine pH 6.0 Urine Specific [place] 1.015 Urine Protein Negative mg/dL (NEG-TRACE) Urine Glucose (UA) Negative mg/dL (NEG) Urine Ketones (Stick) Negative mg/dL (NEG) Urine Blood Small (NEG) Urine Nitrite Negative (NEG) Urine Bilirubin Negative (NEG) Urine Urobilinogen Dipstick 0.2 mg/dL (0.2 mg/dL) Urine Leukocyte Esterase Negative (NEG) Urine RBC 3-5 /HPF (0-2) Urine WBC Occ /HPF (0-4) Urine Transitional Epithelial Cells Occ /LPF Urine Amorphous Sediment Present /HPF Urine Bacteria 0 /HPF (0-FEW) Stool Occult Blood Negative (NEG) Nasal Screen MRSA (PCR) Positive (Negative) Test 07/02/17 12:34 07/02/17 16:55 07/02/17 20:45 07/03/17 07:28 Glucose (Fingerstick) 121 mg/dL (70-99) 196 mg/dL (70-99) 206 mg/dL (70-99) White Blood Count 1.2 x10^3/uL (4.0-11.0) Red Blood Count 1.71 x10^6/uL (4.30-5.70) Hemoglobin 6.0 g/dL (13.0-17.5) Hematocrit 16.8 % (39.0-53.0) Mean Corpuscular Volume 98 fL (79-100) Mean Corpuscular Hemoglobin 35 pg (25-35) Mean Corpuscular Hemoglobin Concent 36 g/dL (31-37) Red Cell Distribution Width 16.4 % (11.5-14.5) Platelet Count 19 x10^3/uL (140-400) Neutrophils (%) (Auto) 24 % (31-73) Lymphocytes (%) (Auto) 63 % (24-48) Monocytes (%) (Auto) 2 % (0-9) Eosinophils (%) (Auto) 10 % (0-3) Basophils (%) (Auto) 0 % (0-3) Neutrophils # (Auto) 0.3 x10^3uL (1.8-7.7) Lymphocytes # (Auto) 0.8 x10^3/uL (1.0-4.8) Monocytes # (Auto) 0.0 x10^3/uL (0.0-1.1) Eosinophils # (Auto) 0.1 x10^3/uL (0.0-0.7) Basophils # (Auto) 0.0 x10^3/uL (0.0-0.2) Sodium Level 141 mmol/L (136-145) Potassium Level 3.6 mmol/L (3.5-5.1) Chloride Level 101 mmol/L (98-107) Carbon Dioxide Level 36 mmol/L (21-32) Anion Gap 4 (6-14) Blood Urea Nitrogen 36 mg/dL (8-26) Creatinine 1.2 mg/dL (0.7-1.3) Estimated GFR (Cockcroft-Gault) 58.1 Glucose Level 168 mg/dL (70-99) Calcium Level 9.3 mg/dL (8.5-10.1) Iron Level 200 ug/dL (65-175) Total Iron Binding Capacity 227 ug/dL (250-450) Iron Saturation 88 % (15-34) Ferritin 461 ng/mL (26-388) Test 07/03/17 07:44 07/03/17 11:24 Glucose (Fingerstick) 164 mg/dL (70-99) 200 mg/dL (70-99) Laboratory Tests Test 07/02/17 12:30 07/02/17 12:34 07/02/17 16:55 07/02/17 20:45 Nasal Screen MRSA (PCR) Positive (Negative) Glucose (Fingerstick) 121 mg/dL (70-99) 196 mg/dL (70-99) 206 mg/dL (70-99) Test 07/03/17 07:28 07/03/17 07:44 07/03/17 11:24 White Blood Count 1.2 x10^3/uL (4.0-11.0) Red Blood Count 1.71 x10^6/uL (4.30-5.70) Hemoglobin 6.0 g/dL (13.0-17.5) Hematocrit 16.8 % (39.0-53.0) Mean Corpuscular Volume 98 fL (79-100) Mean Corpuscular Hemoglobin 35 pg (25-35) Mean Corpuscular Hemoglobin Concent 36 g/dL (31-37) Red Cell Distribution Width 16.4 % (11.5-14.5) Platelet Count 19 x10^3/uL (140-400) Neutrophils (%) (Auto) 24 % (31-73) Lymphocytes (%) (Auto) 63 % (24-48) Monocytes (%) (Auto) 2 % (0-9) Eosinophils (%) (Auto) 10 % (0-3) Basophils (%) (Auto) 0 % (0-3) Neutrophils # (Auto) 0.3 x10^3uL (1.8-7.7) Lymphocytes # (Auto) 0.8 x10^3/uL (1.0-4.8) Monocytes # (Auto) 0.0 x10^3/uL (0.0-1.1) Eosinophils # (Auto) 0.1 x10^3/uL (0.0-0.7) Basophils # (Auto) 0.0 x10^3/uL (0.0-0.2) Sodium Level 141 mmol/L (136-145) Potassium Level 3.6 mmol/L (3.5-5.1) Chloride Level 101 mmol/L (98-107) Carbon Dioxide Level 36 mmol/L (21-32) Anion Gap 4 (6-14) Blood Urea Nitrogen 36 mg/dL (8-26) Creatinine 1.2 mg/dL (0.7-1.3) Estimated GFR (Cockcroft-Gault) 58.1 Glucose Level 168 mg/dL (70-99) Calcium Level 9.3 mg/dL (8.5-10.1) Iron Level 200 ug/dL (65-175) Total Iron Binding Capacity 227 ug/dL (250-450) Iron Saturation 88 % (15-34) Ferritin 461 ng/mL (26-388) Glucose (Fingerstick) 164 mg/dL (70-99) 200 mg/dL (70-99) Microbiology 07/02/17 Blood Culture - Preliminary, Resulted NO GROWTH AFTER 1 DAY Medications Current Medications Albuterol/ Ipratropium (Duoneb) 3 ml 1X ONCE NEB Last administered on 09:32; Start 07/02/17 at 09:30; Stop 07/02/17 at 09:31; Status DC Diphenhydramine HCl (Benadryl Oral Elixir) 12.5 mg 1X PRN PRN PO PRE- TRANSFUSION; Start 07/02/17 at 10:30 Pneumococcal Polyvalent Vaccine (Do NOT chart on this placeholder) 1 each 1X ONCE MC ; Start 07/02/17 at 13:45; Stop 07/02/17 at 13:46; Status UNV Potassium Chloride (Klor-Con) 40 meq 1X ONCE PO ; Start 07/02/17 at 14:00; Stop 07/02/17 at 15:29; Status DC Acetaminophen (Tylenol) 650 mg PRN Q6HRS PRN PO FEVER; Start 07/02/17 at 14:00 Ondansetron HCl (Zofran) 4 mg PRN Q6HRS PRN IV NAUSEA/VOMITING; Start at 14:00 Morphine Sulfate 2 mg PRN Q2HR PRN IV PAIN; Start 07/02/17 at 14:00 Tramadol HCl (Ultram) 50 mg PRN Q6HRS PRN PO PAIN Last administered on 20:29; Start 07/02/17 at 14:00 Hydralazine HCl (Apresoline Inj) 10 mg PRN Q4HRS PRN IVP ELEVATED BP, SEE COMMENTS; Start 07/02/17 at 14:00 Docusate Sodium (Colace) 100 mg PRN DAILY PRN PO CONSTIPATION; Start 07/02/17 at 14:00 Allopurinol (Zyloprim) 100 mg DAILY PO Last administered on 07/03/17 09:36; Start 07/03/17 at 09:00 Alprazolam (Xanax) 0.5 mg BID PRN PO ANXIETY / AGITATION Last administered on 07/02/17 20:28; Start 07/02/17 at 14:00 Atorvastatin Calcium (Lipitor) 20 mg HS PO Last administered on 07/02/17 20: 29; Start 07/02/17 at 21:00 Bisacodyl (Dulcolax Supp) 10 mg PRN DAILY PRN RC CONSTIPATION; Start 07/02/17 at 14:00 Vitamin D (Vitamin D3) 1,000 unit DAILY PO Last administered on 07/03/17 09: 35; Start 07/03/17 at 09:00 Finasteride (Proscar) 5 mg DAILY PO Last administered on 07/03/17 09:36; Start 07/03/17 at 09:00 Losartan Potassium (Cozaar) 25 mg DAILY PO ; Start 07/03/17 at 09:00; Stop at 09:00; Status DC Mirtazapine (Remeron) 15 mg QHS PO Last administered on 07/02/17 20:28; Start 07/02/17 at 21:00 Nystatin (Nystop) 1 bridgette BID TP Last administered on 07/03/17 09:36; Start at 21:00 Potassium Chloride (Klor-Con) 20 meq DAILYWBKFT PO Last administered on 09:35; Start 07/03/17 at 08:00 Prednisone (Prednisone) 5 mg DAILY PO Last administered on 07/03/17 09:36; Start 07/03/17 at 09:00 Tamsulosin HCl (Flomax) 0.4 mg HS PO Last administered on 07/02/17 20:29; Start 07/02/17 at 21:00 Trazodone HCl (Desyrel) 75 mg HS PO Last administered on 07/02/17 20:28; Start 07/02/17 at 21:00 Verapamil HCl (Calan Sr) 360 mg DAILY PO Last administered on 07/03/17 09:35 ; Start 07/03/17 at 09:00 Venlafaxine HCl (Effexor Xr) 75 mg DAILY PO Last administered on 07/03/17 09: 35; Start 07/03/17 at 09:00 Insulin Aspart (NovoLOG) 0-9 UNITS TIDWMEALS SQ Last administered on 11/14/ 17at 18:25; Start 07/02/17 at 17:00 Dextrose (Dextrose 50%-Water Syringe) 12.5 gm PRN Q15MIN PRN IV SEE COMMENTS; Start 07/02/17 at 14:15 Nystatin (Nystop) 1 bridgette BID TP ; Start 07/02/17 at 21:00; Stop 07/02/17 at 21: 00; Status DC Potassium Chloride (KCl Oral Soln) 40 meq 1X ONCE PO Last administered on 17:33; Start 07/02/17 at 15:30; Stop 07/02/17 at 15:35; Status DC Active Scripts Active Verapamil Er (Verapamil Hcl) 180 Mg Tablet.er 360 Mg PO DAILY Cozaar (Losartan Potassium) 25 Mg Tablet 25 Mg PO DAILY Klor-Con M20 (Potassium Chloride) 20 Meq Tab.er.prt 20 Meq PO DAILYWBKFT Furosemide 40 Mg Tablet 40 Mg PO DAILY Reported Proventil Hfa Inhaler (Albuterol Sulfate) 6.7 Gm Hfa.aer.ad 2 Puff IH PRN Q4HRS PRN Trazodone Hcl 50 Mg Tablet 75 Mg PO HS Prednisone 10 Mg Tablet 5 Mg PO DAILY Venlafaxine Hcl Er (Venlafaxine Hcl) 75 Mg Cap.er.24h 75 Cap PO DAILY Milk Of Magnesia (Magnesium Hydroxide) 2,400 Mg/10 Ml Oral.susp 1,200 Mg PO Alprazolam 0.5 Mg Tablet 1 Tab PO TID Allopurinol 100 Mg Tablet 1 Tab PO DAILY Nystatin-Triamcinolone Cream (Nystatin/Triamcin) 15 Gm Cream..g. 1 Bridgette TP BID Calmoseptine Ointment (Menthol/Zinc Oxide) 3.5 Gm Oint.pack 3.5 Gm TP BID Tylenol (Acetaminophen) 325 Mg Tablet 650 Mg PO Q6HRS PRN Furosemide 20 Mg Tablet 1 Tab PO DAILY16 Metolazone 2.5 Mg Tablet 2.5 Mg PO DAILY Novolog Flexpen (Insulin Aspart) 100 Unit/1 Ml Insuln.pen 15 Unit SQ TIDWMEALS Alprazolam 0.5 Mg Tablet 0.5 Mg PO BID PRN Vitamin D3 (Cholecalciferol (Vitamin D3)) 1,000 Unit Tablet 1,000 Unit PO DAILY Imodium Multi-Symptom Rel Cplt (Loperamide Hcl/Simethicone) 1 Each Tablet 1 Each PO PRN BID PRN Metformin Hcl 1,000 Mg Tablet 1,000 Mg PO BID Azathioprine 50 Mg Tablet 100 Mg PO BID Remeron (Mirtazapine) 15 Mg Tablet 1 Tab PO QHS Meloxicam 15 Mg Tablet 1 Tab PO DAILY Dulcolax (Bisacodyl) 10 Mg Supp.rect 10 Mg RC PRN DAILY PRN Nystatin 15 Gm Powder 1 Bridgette TP BID Levemir Flextouch (Insulin Detemir) 100 Unit/1 Ml Insuln.pen 75 Unit SQ HS Tamsulosin Hcl 0.4 Mg Cap.er.24h 0.4 Mg PO HS Atorvastatin Calcium 20 Mg Tablet 20 Mg PO HS Finasteride 5 Mg Tablet 5 Mg PO DAILY Vitals/I & O Vital Sign - Last 24 Hours 07/02/17 07/02/17 07/02/17 07/02/17 12:00 13:55 14:15 14:30 Temp 98.2 98.2 98.4 98.3 98.2 98.2 98.4 98.3 Pulse 71 71 68 70 Resp 19 16 16 16 B/P (MAP) 102/52 (69) 97/39 94/52 98/50 Pulse Ox 100 O2 Delivery Room Air 07/02/17 07/02/17 07/02/17 07/02/17 15:00 15:00 15:30 16:03 Temp 98.1 98.3 98.3 98.3 98.1 98.3 98.3 98.3 Pulse 68 70 70 70 Resp 19 16 16 18 B/P (MAP) 108/67 (81) 104/52 113/54 118/54 Pulse Ox 98 O2 Delivery Nasal Cannula O2 Flow Rate 2.0 07/02/17 07/02/17 07/02/17 07/03/17 19:45 20:00 22:55 03:05 Temp 98.4 98.1 97.2 98.4 98.1 97.2 Pulse 65 66 55 Resp 20 18 18 B/P (MAP) 103/51 (68) 111/52 (71) 92/45 (61) Pulse Ox 93 100 100 O2 Delivery Nasal Cannula Nasal Cannula Nasal Cannula Nasal Cannula O2 Flow Rate 2.0 2.0 2.0 2.0 07/03/17 07/03/17 07/03/17 07/03/17 07:38 08:10 09:35 10:27 Temp 98.0 97.4 98.0 97.4 Pulse 65 65 64 Resp 19 18 B/P (MAP) 105/57 (73) 118/57 123/37 (65) Pulse Ox 95 94 O2 Delivery Nasal Cannula Nasal Cannula Nasal Cannula O2 Flow Rate 2.0 2.0 2.0 07/03/17 07/03/17 11:20 11:37 Temp 97.5 97.1 97.5 97.1 Pulse 59 62 Resp 17 18 B/P (MAP) 112/51 113/57 Intake and Output 07/02/17 07/02/17 07/03/17 15:00 23:00 07:00 Intake Total 275 ml 1000 ml 460 ml Output Total 1100 ml Balance 275 ml 1000 ml -640 ml NICANOR DE OLIVEIRA MD Jul 03, 2017 11:48
[2017-07-03 13:36] LABS: FOLATE 8.37 ng/ml (3.2-20.0)
--- NOTE | 2017-07-03 17:46 | PDOC ---
Provider Note Provider Note Hem/Onc consult: 1. Pancytopenia due to Imuran (for RA). Hold Imuran, counts should improve gradually. 2. B12 def. Ordered B12. See dictation [id number] DEBBY MANN MD Jul 03, 2017 17:46
[2017-07-03] MEDS: traZODone 50 MG TABLET. PO SCH (20:53)
[2017-07-03] MEDS: MIRTAZAPINE 15 MG TABLET PO SCH (20:53)
[2017-07-03] MEDS: TAMSULOSIN 0.4 MG CAP.ER.24H. PO SCH (20:53)
[2017-07-03] MEDS: ATORVASTATIN CALCIUM 20 MG TABLET PO SCH (20:53)
[2017-07-04] VITALS (10 sets, daily range): BP systolic 100–122; BP diastolic 42–99
--- NOTE | 2017-07-04 07:00 | CONS ---
DATE OF CONSULTATION: 07/03/2017 REQUESTING PHYSICIAN: Dr. Melonie Estes. REASON FOR CONSULTATION: Severe anemia, severe neutropenia and thrombocytopenia. HISTORY OF PRESENT ILLNESS: The patient is an 81-year-old gentleman who is a resident of a prison facility. He was brought in to [facility] with severe weakness, looking pale. He has had generalized weakness, but no nausea, vomiting or diarrhea. No chest pain. The care home facility felt that he was having shortness of breath. He had a low-grade fever of 99 degrees. Apparently, his labs from prison in 05/2017 were unremarkable. However, a CBC at the time of admission on 07/02/2014 revealed severe pancytopenia with a WBC of 1.1, hemoglobin 5.5, platelet count 21. The patient has been on Imuran for rheumatoid arthritis. I was asked to see the patient for further evaluation of pancytopenia. PAST MEDICAL HISTORY: Coronary artery disease, hypertension, hyperlipidemia, gastroesophageal reflux disease, diabetes, rheumatoid arthritis, anxiety disorder, hyperlipidemia, benign prostatic hypertrophy, major depressive disorder. On Imuran for rheumatoid arthritis management. PAST SURGICAL HISTORY: Total knee replacement. FAMILY HISTORY: Positive for diabetes and hypertension. SOCIAL HISTORY: No smoking or alcohol abuse. REVIEW OF SYSTEMS: A 12-point review of systems was performed. Pertinent positives are mentioned in the history of present illness. Rest of the system review is negative. PHYSICAL EXAMINATION: GENERAL APPEARANCE: The patient is an 81-year-old gentleman who is well developed, well nourished and in no acute cardiorespiratory distress. VITAL SIGNS: Blood pressure 127/51, temperature 97.4. HEENT: Head atraumatic, normocephalic. Eyes: No icterus. NECK: Supple. CHEST: Bilaterally symmetrical. No crepitations or rhonchi heard. HEART: S1, S2 normal. ABDOMEN: Soft, nontender. No hepatosplenomegaly. CENTRAL NERVOUS SYSTEM: No focal deficits. He is a poor historian. LYMPHATICS: No lymphadenopathy. SKIN: He has a skin tear in the left arm. He also has lesions in the left buttock and left posterior thigh. Wound Management has been seeing the patient and dressing is being done. LABORATORY DATA: On 07/02/2017, WBC 1.1, hemoglobin 5.1, platelet count 21. Neutrophils 25%, lymphocytes 67%, MCV 100. A followup hemoglobin on 07/03/2017 was 6.0 and another hemoglobin level was 6.9 later on at 3 p.m. on 07/03/2017. IMPRESSION AND PLAN: 1. Normochromic normocytic anemia secondary to anemia due to chronic disease. In addition, he has some B12 deficiency. His B12 level is only 173 on 07/03/2017, contributing to anemia. In addition, he is on Imuran for rheumatoid arthritis management, which would also cause pancytopenia. His iron studies are suggestive of anemia of chronic disease. Iron level was 200, TIBC 227, iron saturation 88, folic acid 8.37, ferritin 461. I will start him on vitamin B12 supplementation 1000 mcg intramuscularly daily for 7 days. Since the Imuran has been discontinued, I would expect gradual improvement in his hemoglobin. Agree to monitor and transfuse as needed. 2. Severe neutropenia secondary to Imuran, rheumatoid arthritis, vitamin B12 deficiency. Plan: Neutropenic precautions. Continue to monitor CBC. 3. Severe thrombocytopenia, no clinical evidence of bleeding. If he has any significant bleeding, then he would need platelet transfusions. 4. Rheumatoid arthritis. He is on Imuran per prison records. Imuran can cause pancytopenia, and hence, it has been discontinued during this admission. I agree to hold Imuran. DEBBY MANN MD DR: ALLIE/son JOB#: [id number] / [id number] LONI
[2017-07-04 07:25] LABS: BASO % 0 % (0-3); EOS % 12 % (0-3); LYMPH # 0.6 x10^3/uL (1.0-4.8); LYMPH % 57 % (24-48); MEAN CORPUSCULAR HEMOGLOBIN 34 pg (25-35); MEAN CORPUSCULAR HGB CONC 36 g/dL (31-37); MEAN CORPUSCULAR VOLUME 94 fL (79-100); MONO % 1 % (0-9); NEUT % 30 % (31-73); RED BLOOD COUNT 1.77 x10^6/uL (4.30-5.70); RED CELL DISTRIBUTION WIDTH 17.2 % (11.5-14.5)
[2017-07-04 07:33] LABS: ALBUMIN 2.9 g/dL (3.4-5.0); ALBUMIN/GLOBULIN RATIO 0.9 (1.0-1.7); CALCIUM 8.5 mg/dL (8.5-10.1); CREATININE 1.1 mg/dL (0.7-1.3); GFR 64.2; POTASSIUM 3.7 mmol/L (3.5-5.1); TOTAL BILIRUBIN 0.5 mg/dL (0.2-1.0); TOTAL PROTEIN 6.3 g/dL (6.4-8.2)
[2017-07-04 07:40] LABS: HEMATOCRIT 16.7 % (39.0-53.0); PLATELET COUNT 23 x10^3/uL (140-400); WHITE BLOOD COUNT 1.1 x10^3/uL (4.0-11.0)
[2017-07-04] MEDS: INSULIN ASPART 300 UNITS/3 ML INSULN.PEN SQ SCH ×3 (08:00→17:37)
--- NOTE | 2017-07-04 08:15 | PDOC ---
PROGRESS NOTES Subjective Subjective HPI - Normochromic normocytic anemia secondary to anemia due to chronic disease. ROS - no bleed Objective Objective Vital Signs Date Time Temp Pulse Resp B/P (MAP) Pulse Ox O2 Delivery O2 Flow Rate FiO2 07/04/17 07:00 97.6 70 18 102/49 (66) 99 Nasal Cannula 2.0 97.6 Intake and Output 07/04/17 07:00 Intake Total 1165 ml Output Total 2500 ml Balance -1335 ml Intake Oral 850 ml Blood Product IV Normal Saline Flush 315 ml Output Urine Total 2500 ml Physical Exam Heart: Normal S1 General: No acute distress Neck: No JVD Skin: Other (ecchymoses) Assessment Assessment Problems Medical Problems: (1) Anemia Status: Acute (2) Shortness of breath Status: Acute IMPRESSION AND PLAN: 1. Normochromic normocytic anemia secondary to anemia due to chronic disease. In addition, he has B12 deficiency. His B12 level is only 173 on 07/03/2017, contributing to anemia. In addition, he is on Imuran for rheumatoid arthritis management, which would also cause pancytopenia. His iron studies are suggestive of anemia of chronic disease. Iron level was 200, TIBC 227, iron saturation 88, folic acid 8.37, ferritin 461. Hb worse at 6.0 on 07/04/17. Ordered Bone marrow bx to julia for MDS. I started him on vitamin B12 supplementation 1000 mcg intramuscularly daily for 7 days from 07/04/17. Since the Imuran has been discontinued, I would expect gradual improvement in his hemoglobin. 2. Severe neutropenia secondary to Imuran, rheumatoid arthritis, vitamin B12 deficiency. Plan: Neutropenic precautions. Continue to monitor CBC. 3. Severe thrombocytopenia, no clinical evidence of bleeding. If he has any significant bleeding, then he would need platelet transfusions. 4. Rheumatoid arthritis. He is on Imuran per [facility] records. Imuran can cause pancytopenia, and hence, it has been discontinued during this admission. I agree to hold Imuran. I d/w RN Comment Review of Relevant I have reviewed the following items zuly (where applicable) has been applied. Labs Laboratory Tests Test 07/02/17 09:35 07/02/17 09:55 07/02/17 10:15 07/02/17 12:30 White Blood Count 1.1 x10^3/uL (4.0-11.0) Red Blood Count 1.46 x10^6/uL (4.30-5.70) Hemoglobin 5.1 g/dL (13.0-17.5) Hematocrit 14.5 % (39.0-53.0) Mean Corpuscular Volume 100 fL (79-100) Mean Corpuscular Hemoglobin 35 pg (25-35) Mean Corpuscular Hemoglobin Concent 35 g/dL (31-37) Red Cell Distribution Width 15.4 % (11.5-14.5) Platelet Count 21 x10^3/uL (140-400) Neutrophils (%) (Auto) 25 % (31-73) Lymphocytes (%) (Auto) 67 % (24-48) Monocytes (%) (Auto) 1 % (0-9) Eosinophils (%) (Auto) 6 % (0-3) Basophils (%) (Auto) 0 % (0-3) Neutrophils # (Auto) 0.3 x10^3uL (1.8-7.7) Lymphocytes # (Auto) 0.8 x10^3/uL (1.0-4.8) Monocytes # (Auto) 0.0 x10^3/uL (0.0-1.1) Eosinophils # (Auto) 0.1 x10^3/uL (0.0-0.7) Basophils # (Auto) 0.0 x10^3/uL (0.0-0.2) Segmented Neutrophils % 28 % (35-66) Lymphocytes % 66 % (24-48) Monocytes % 2 % (0-10) Eosinophils % 4 % (0-5) Platelet Estimate Decreased (ADEQUATE) Sodium Level 139 mmol/L (136-145) Potassium Level 3.3 mmol/L (3.5-5.1) Chloride Level 96 mmol/L (98-107) Carbon Dioxide Level 37 mmol/L (21-32) Anion Gap 6 (6-14) Blood Urea Nitrogen 43 mg/dL (8-26) Creatinine 1.5 mg/dL (0.7-1.3) Estimated GFR (Cockcroft-Gault) 44.9 BUN/Creatinine Ratio 29 (6-20) Glucose Level 176 mg/dL (70-99) Calcium Level 9.2 mg/dL (8.5-10.1) Total Bilirubin 0.3 mg/dL (0.2-1.0) Aspartate Amino Transf (AST/SGOT) 10 U/L (15-37) Alanine Aminotransferase (ALT/SGPT) 11 U/L (16-63) Alkaline Phosphatase 81 U/L (46-116) OO-Nni-A-Type Natriuretic Peptide 508 pg/mL (0-449) Total Protein 7.2 g/dL (6.4-8.2) Albumin 3.2 g/dL (3.4-5.0) Albumin/Globulin Ratio 0.8 (1.0-1.7) Prostate Specific Antigen 0.15 ng/mL (0.00-4.00) Urine Collection Type U cath Urine Color Yellow Urine Clarity Clear Urine pH 6.0 Urine Specific [place] 1.015 Urine Protein Negative mg/dL (NEG-TRACE) Urine Glucose (UA) Negative mg/dL (NEG) Urine Ketones (Stick) Negative mg/dL (NEG) Urine Blood Small (NEG) Urine Nitrite Negative (NEG) Urine Bilirubin Negative (NEG) Urine Urobilinogen Dipstick 0.2 mg/dL (0.2 mg/dL) Urine Leukocyte Esterase Negative (NEG) Urine RBC 3-5 /HPF (0-2) Urine WBC Occ /HPF (0-4) Urine Transitional Epithelial Cells Occ /LPF Urine Amorphous Sediment Present /HPF Urine Bacteria 0 /HPF (0-FEW) Stool Occult Blood Negative (NEG) Nasal Screen MRSA (PCR) Positive (Negative) Test 07/02/17 12:34 07/02/17 16:55 07/02/17 20:45 07/03/17 07:28 Glucose (Fingerstick) 121 mg/dL (70-99) 196 mg/dL (70-99) 206 mg/dL (70-99) White Blood Count 1.2 x10^3/uL (4.0-11.0) Red Blood Count 1.71 x10^6/uL (4.30-5.70) Hemoglobin 6.0 g/dL (13.0-17.5) Hematocrit 16.8 % (39.0-53.0) Mean Corpuscular Volume 98 fL (79-100) Mean Corpuscular Hemoglobin 35 pg (25-35) Mean Corpuscular Hemoglobin Concent 36 g/dL (31-37) Red Cell Distribution Width 16.4 % (11.5-14.5) Platelet Count 19 x10^3/uL (140-400) Neutrophils (%) (Auto) 24 % (31-73) Lymphocytes (%) (Auto) 63 % (24-48) Monocytes (%) (Auto) 2 % (0-9) Eosinophils (%) (Auto) 10 % (0-3) Basophils (%) (Auto) 0 % (0-3) Neutrophils # (Auto) 0.3 x10^3uL (1.8-7.7) Lymphocytes # (Auto) 0.8 x10^3/uL (1.0-4.8) Monocytes # (Auto) 0.0 x10^3/uL (0.0-1.1) Eosinophils # (Auto) 0.1 x10^3/uL (0.0-0.7) Basophils # (Auto) 0.0 x10^3/uL (0.0-0.2) Sodium Level 141 mmol/L (136-145) Potassium Level 3.6 mmol/L (3.5-5.1) Chloride Level 101 mmol/L (98-107) Carbon Dioxide Level 36 mmol/L (21-32) Anion Gap 4 (6-14) Blood Urea Nitrogen 36 mg/dL (8-26) Creatinine 1.2 mg/dL (0.7-1.3) Estimated GFR (Cockcroft-Gault) 58.1 Glucose Level 168 mg/dL (70-99) Calcium Level 9.3 mg/dL (8.5-10.1) Iron Level 200 ug/dL (65-175) Total Iron Binding Capacity 227 ug/dL (250-450) Iron Saturation 88 % (15-34) Ferritin 461 ng/mL (26-388) Vitamin B12 Level 173 pg/mL (247-911) Serum Folate 8.37 ng/ml (3.2-20.0) Test 07/03/17 07:44 07/03/17 11:24 07/03/17 15:00 07/03/17 16:14 Glucose (Fingerstick) 164 mg/dL (70-99) 200 mg/dL (70-99) 312 mg/dL (70-99) Hemoglobin 6.9 g/dL (13.0-17.5) Test 07/03/17 22:50 07/04/17 06:45 07/04/17 07:03 Glucose (Fingerstick) 158 mg/dL (70-99) 187 mg/dL (70-99) White Blood Count 1.1 x10^3/uL (4.0-11.0) Red Blood Count 1.77 x10^6/uL (4.30-5.70) Hemoglobin 6.0 g/dL (13.0-17.5) Hematocrit 16.7 % (39.0-53.0) Mean Corpuscular Volume 94 fL (79-100) Mean Corpuscular Hemoglobin 34 pg (25-35) Mean Corpuscular Hemoglobin Concent 36 g/dL (31-37) Red Cell Distribution Width 17.2 % (11.5-14.5) Platelet Count 23 x10^3/uL (140-400) Neutrophils (%) (Auto) 30 % (31-73) Lymphocytes (%) (Auto) 57 % (24-48) Monocytes (%) (Auto) 1 % (0-9) Eosinophils (%) (Auto) 12 % (0-3) Basophils (%) (Auto) 0 % (0-3) Neutrophils # (Auto) 0.3 x10^3uL (1.8-7.7) Lymphocytes # (Auto) 0.6 x10^3/uL (1.0-4.8) Monocytes # (Auto) 0.0 x10^3/uL (0.0-1.1) Eosinophils # (Auto) 0.1 x10^3/uL (0.0-0.7) Basophils # (Auto) 0.0 x10^3/uL (0.0-0.2) Sodium Level 139 mmol/L (136-145) Potassium Level 3.7 mmol/L (3.5-5.1) Chloride Level 100 mmol/L (98-107) Carbon Dioxide Level 33 mmol/L (21-32) Anion Gap 6 (6-14) Blood Urea Nitrogen 32 mg/dL (8-26) Creatinine 1.1 mg/dL (0.7-1.3) Estimated GFR (Cockcroft-Gault) 64.2 BUN/Creatinine Ratio 29 (6-20) Glucose Level 196 mg/dL (70-99) Calcium Level 8.5 mg/dL (8.5-10.1) Total Bilirubin 0.5 mg/dL (0.2-1.0) Aspartate Amino Transf (AST/SGOT) 10 U/L (15-37) Alanine Aminotransferase (ALT/SGPT) 10 U/L (16-63) Alkaline Phosphatase 73 U/L (46-116) Total Protein 6.3 g/dL (6.4-8.2) Albumin 2.9 g/dL (3.4-5.0) Albumin/Globulin Ratio 0.9 (1.0-1.7) Laboratory Tests Test 07/03/17 11:24 07/03/17 15:00 07/03/17 16:14 07/03/17 22:50 Glucose (Fingerstick) 200 mg/dL (70-99) 312 mg/dL (70-99) 158 mg/dL (70-99) Hemoglobin 6.9 g/dL (13.0-17.5) Test 07/04/17 06:45 07/04/17 07:03 White Blood Count 1.1 x10^3/uL (4.0-11.0) Red Blood Count 1.77 x10^6/uL (4.30-5.70) Hemoglobin 6.0 g/dL (13.0-17.5) Hematocrit 16.7 % (39.0-53.0) Mean Corpuscular Volume 94 fL (79-100) Mean Corpuscular Hemoglobin 34 pg (25-35) Mean Corpuscular Hemoglobin Concent 36 g/dL (31-37) Red Cell Distribution Width 17.2 % (11.5-14.5) Platelet Count 23 x10^3/uL (140-400) Neutrophils (%) (Auto) 30 % (31-73) Lymphocytes (%) (Auto) 57 % (24-48) Monocytes (%) (Auto) 1 % (0-9) Eosinophils (%) (Auto) 12 % (0-3) Basophils (%) (Auto) 0 % (0-3) Neutrophils # (Auto) 0.3 x10^3uL (1.8-7.7) Lymphocytes # (Auto) 0.6 x10^3/uL (1.0-4.8) Monocytes # (Auto) 0.0 x10^3/uL (0.0-1.1) Eosinophils # (Auto) 0.1 x10^3/uL (0.0-0.7) Basophils # (Auto) 0.0 x10^3/uL (0.0-0.2) Sodium Level 139 mmol/L (136-145) Potassium Level 3.7 mmol/L (3.5-5.1) Chloride Level 100 mmol/L (98-107) Carbon Dioxide Level 33 mmol/L (21-32) Anion Gap 6 (6-14) Blood Urea Nitrogen 32 mg/dL (8-26) Creatinine 1.1 mg/dL (0.7-1.3) Estimated GFR (Cockcroft-Gault) 64.2 BUN/Creatinine Ratio 29 (6-20) Glucose Level 196 mg/dL (70-99) Calcium Level 8.5 mg/dL (8.5-10.1) Total Bilirubin 0.5 mg/dL (0.2-1.0) Aspartate Amino Transf (AST/SGOT) 10 U/L (15-37) Alanine Aminotransferase (ALT/SGPT) 10 U/L (16-63) Alkaline Phosphatase 73 U/L (46-116) Total Protein 6.3 g/dL (6.4-8.2) Albumin 2.9 g/dL (3.4-5.0) Albumin/Globulin Ratio 0.9 (1.0-1.7) Glucose (Fingerstick) 187 mg/dL (70-99) Microbiology 07/02/17 Blood Culture - Preliminary, Resulted NO GROWTH AFTER 1 DAY Medications Current Medications Albuterol/ Ipratropium (Duoneb) 3 ml 1X ONCE NEB Last administered on t 09:32; Start 07/02/17 at 09:30; Stop 07/02/17 at 09:31; Status DC Diphenhydramine HCl (Benadryl Oral Elixir) 12.5 mg 1X PRN PRN PO PRE- TRANSFUSION; Start 07/02/17 at 10:30 Pneumococcal Polyvalent Vaccine (Do NOT chart on this placeholder) 1 each 1X ONCE MC ; Start 07/02/17 at 13:45; Stop 07/02/17 at 13:46; Status UNV Potassium Chloride (Klor-Con) 40 meq 1X ONCE PO ; Start 07/02/17 at 14:00; Stop 07/02/17 at 15:29; Status DC Acetaminophen (Tylenol) 650 mg PRN Q6HRS PRN PO FEVER; Start 07/02/17 at 14:00 Ondansetron HCl (Zofran) 4 mg PRN Q6HRS PRN IV NAUSEA/VOMITING; Start at 14:00 Morphine Sulfate 2 mg PRN Q2HR PRN IV PAIN; Start 07/02/17 at 14:00 Tramadol HCl (Ultram) 50 mg PRN Q6HRS PRN PO PAIN Last administered on 20:29; Start 07/02/17 at 14:00 Hydralazine HCl (Apresoline Inj) 10 mg PRN Q4HRS PRN IVP ELEVATED BP, SEE COMMENTS; Start 07/02/17 at 14:00 Docusate Sodium (Colace) 100 mg PRN DAILY PRN PO CONSTIPATION; Start 07/02/17 at 14:00 Allopurinol (Zyloprim) 100 mg DAILY PO Last administered on 07/03/17 09:36; Start 07/03/17 at 09:00 Alprazolam (Xanax) 0.5 mg BID PRN PO ANXIETY / AGITATION Last administered on 07/02/17 20:28; Start 07/02/17 at 14:00 Atorvastatin Calcium (Lipitor) 20 mg HS PO Last administered on 07/03/17 20: 53; Start 07/02/17 at 21:00 Bisacodyl (Dulcolax Supp) 10 mg PRN DAILY PRN RC CONSTIPATION; Start 07/02/17 at 14:00 Vitamin D (Vitamin D3) 1,000 unit DAILY PO Last administered on 07/03/17 09: 35; Start 07/03/17 at 09:00 Finasteride (Proscar) 5 mg DAILY PO Last administered on 07/03/17 09:36; Start 07/03/17 at 09:00 Losartan Potassium (Cozaar) 25 mg DAILY PO ; Start 07/03/17 at 09:00; Stop at 09:00; Status DC Mirtazapine (Remeron) 15 mg QHS PO Last administered on 07/03/17 20:53; Start 07/02/17 at 21:00 Nystatin (Nystop) 1 bridgette BID TP Last administered on 07/03/17 20:53; Start at 21:00 Potassium Chloride (Klor-Con) 20 meq DAILYWBKFT PO Last administered on 09:35; Start 07/03/17 at 08:00 Prednisone (Prednisone) 5 mg DAILY PO Last administered on 07/03/17 09:36; Start 07/03/17 at 09:00 Tamsulosin HCl (Flomax) 0.4 mg HS PO Last administered on 07/03/17 20:53; Start 07/02/17 at 21:00 Trazodone HCl (Desyrel) 75 mg HS PO Last administered on 07/03/17 20:53; Start 07/02/17 at 21:00 Verapamil HCl (Calan Sr) 360 mg DAILY PO Last administered on 07/03/17 09:35 ; Start 07/03/17 at 09:00 Venlafaxine HCl (Effexor Xr) 75 mg DAILY PO Last administered on 07/03/17 09: 35; Start 07/03/17 at 09:00 Insulin Aspart (NovoLOG) 0-9 UNITS TIDWMEALS SQ Last administered on 16:25; Start 07/02/17 at 17:00 Dextrose (Dextrose 50%-Water Syringe) 12.5 gm PRN Q15MIN PRN IV SEE COMMENTS; Start 07/02/17 at 14:15 Nystatin (Nystop) 1 bridgette BID TP ; Start 07/02/17 at 21:00; Stop 07/02/17 at 21: 00; Status DC Potassium Chloride (KCl Oral Soln) 40 meq 1X ONCE PO Last administered on 17:33; Start 07/02/17 at 15:30; Stop 07/02/17 at 15:35; Status DC Cyanocobalamin (Vitamin B-12) 1,000 mcg DAILY IM ; Start 07/04/17 at 09:00; Stop 07/11/17 at 08:59 Active Scripts Active Verapamil Er (Verapamil Hcl) 180 Mg Tablet.er 360 Mg PO DAILY Cozaar (Losartan Potassium) 25 Mg Tablet 25 Mg PO DAILY Klor-Con M20 (Potassium Chloride) 20 Meq Tab.er.prt 20 Meq PO DAILYWBKFT Furosemide 40 Mg Tablet 40 Mg PO DAILY Reported Proventil Hfa Inhaler (Albuterol Sulfate) 6.7 Gm Hfa.aer.ad 2 Puff IH PRN Q4HRS PRN Trazodone Hcl 50 Mg Tablet 75 Mg PO HS Prednisone 10 Mg Tablet 5 Mg PO DAILY Venlafaxine Hcl Er (Venlafaxine Hcl) 75 Mg Cap.er.24h 75 Cap PO DAILY Milk Of Magnesia (Magnesium Hydroxide) 2,400 Mg/10 Ml Oral.susp 1,200 Mg PO Alprazolam 0.5 Mg Tablet 1 Tab PO TID Allopurinol 100 Mg Tablet 1 Tab PO DAILY Nystatin-Triamcinolone Cream (Nystatin/Triamcin) 15 Gm Cream..g. 1 Bridgette TP BID Calmoseptine Ointment (Menthol/Zinc Oxide) 3.5 Gm Oint.pack 3.5 Gm TP BID Tylenol (Acetaminophen) 325 Mg Tablet 650 Mg PO Q6HRS PRN Furosemide 20 Mg Tablet 1 Tab PO DAILY16 Metolazone 2.5 Mg Tablet 2.5 Mg PO DAILY Novolog Flexpen (Insulin Aspart) 100 Unit/1 Ml Insuln.pen 15 Unit SQ TIDWMEALS Alprazolam 0.5 Mg Tablet 0.5 Mg PO BID PRN Vitamin D3 (Cholecalciferol (Vitamin D3)) 1,000 Unit Tablet 1,000 Unit PO DAILY Imodium Multi-Symptom Rel Cplt (Loperamide Hcl/Simethicone) 1 Each Tablet 1 Each PO PRN BID PRN Metformin Hcl 1,000 Mg Tablet 1,000 Mg PO BID Azathioprine 50 Mg Tablet 100 Mg PO BID Remeron (Mirtazapine) 15 Mg Tablet 1 Tab PO QHS Meloxicam 15 Mg Tablet 1 Tab PO DAILY Dulcolax (Bisacodyl) 10 Mg Supp.rect 10 Mg RC PRN DAILY PRN Nystatin 15 Gm Powder 1 Bridgette TP BID Levemir Flextouch (Insulin Detemir) 100 Unit/1 Ml Insuln.pen 75 Unit SQ HS Tamsulosin Hcl 0.4 Mg Cap.er.24h 0.4 Mg PO HS Atorvastatin Calcium 20 Mg Tablet 20 Mg PO HS Finasteride 5 Mg Tablet 5 Mg PO DAILY Vitals/I & O Vital Sign - Last 24 Hours 07/03/17 07/03/17 07/03/17 07/03/17 09:35 10:27 11:20 11:37 Temp 97.4 97.5 97.1 97.4 97.5 97.1 Pulse 65 64 59 62 Resp 18 17 18 B/P (MAP) 118/57 123/37 (65) 112/51 113/57 Pulse Ox 94 O2 Delivery Nasal Cannula O2 Flow Rate 2.0 07/03/17 07/03/17 07/03/17 07/03/17 11:52 11:53 12:09 12:18 Temp 97.2 97.2 97.1 97.1 97.2 97.2 97.1 97.1 Pulse 62 62 70 64 Resp 16 16 16 16 B/P (MAP) 119/23 122/57 109/57 116/59 07/03/17 07/03/17 07/03/17 07/03/17 13:56 14:49 19:30 19:30 Temp 97.4 97.9 97.4 97.9 Pulse 79 71 79 Resp 16 18 20 B/P (MAP) 105/54 127/51 (76) 110/47 (68) Pulse Ox 92 100 O2 Delivery Nasal Cannula Nasal Cannula Nasal Cannula O2 Flow Rate 2.0 2.0 2.0 07/03/17 07/04/17 07/04/17 22:45 03:10 07:00 Temp 98.2 97.7 97.6 98.2 97.7 97.6 Pulse 68 70 70 Resp 18 16 18 B/P (MAP) 101/45 (63) 107/48 (67) 102/49 (66) Pulse Ox 95 99 99 O2 Delivery Nasal Cannula Nasal Cannula Nasal Cannula O2 Flow Rate 2.0 2.0 2.0 Intake and Output 07/03/17 07/03/17 07/04/17 15:00 23:00 07:00 Intake Total 315 ml 600 ml 250 ml Output Total 1400 ml 1100 ml Balance 315 ml -800 ml -850 ml DEBBY MANN MD Jul 04, 2017 08:15
[2017-07-04 09:43] LABS: INR 1.1 (0.8-1.1); PROTHROMBIN TIME PATIENT 13.7 SEC (11.7-14.0)
[2017-07-04] MEDS: NYSTATIN TOPICAL POWDER 15GM BOTTLE. TP SCH ×2 (10:11→21:21)
[2017-07-04] MEDS: CYANOCOBALAMIN (VITAMIN B-12) 1,000 MCG/ML VIAL IM SCH (10:11)
[2017-07-04] MEDS: predniSONE 10 MG TABLET PO SCH (10:16)
[2017-07-04] MEDS: FINASTERIDE 5 MG TABLET. PO SCH (10:17)
[2017-07-04] MEDS: CHOLECALCIFEROL (VITAMIN D3) 1,000 UNIT TABLET PO SCH (10:17)
[2017-07-04] MEDS: ALLOPURINOL 100 MG TABLET. PO SCH (10:17)
[2017-07-04] MEDS: POTASSIUM CHLORIDE 20 MEQ TABLET.ER. PO SCH (10:17)
[2017-07-04] MEDS: VERAPAMIL SR 180 MG TABLET.ER. PO SCH (10:17)
[2017-07-04] MEDS: VENLAFAXINE XR 37.5 MG CAP.ER.24H. PO SCH (10:18)
--- NOTE | 2017-07-04 12:52 | PDOC ---
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 CHF htn og, vasomotor DM2 on insulin ckd 3 mild malnutrition HLD GERD BPH depression SNF resident sacral ulcer, stage 2 on admit hypokalemia History of Present Illness History of Present Illness onco consult following, DC imuran PRBC transfusion today, again PTOT SSI wound care advance diet, nutrition following is now DNR, tele stable, will DC tele, family considering hospice at DC Vitals Vitals Vital Signs Date Time Temp Pulse Resp B/P (MAP) Pulse Ox O2 Delivery O2 Flow Rate FiO2 07/04/17 11:00 97.6 72 18 112/52 (72) 96 Nasal Cannula 2.0 97.6 Physical Exam General: Alert, Cooperative, No acute distress Heart: Normal S1 Lungs: Clear, Other Abdomen: Normal bowel sounds Extremities: No clubbing, No cyanosis Skin: Other (ecchymoses) Labs LABS Laboratory Tests Test 07/03/17 15:00 07/03/17 16:14 07/03/17 22:50 07/04/17 06:45 Hemoglobin 6.9 g/dL (13.0-17.5) 6.0 g/dL (13.0-17.5) Glucose (Fingerstick) 312 mg/dL (70-99) 158 mg/dL (70-99) White Blood Count 1.1 x10^3/uL (4.0-11.0) Red Blood Count 1.77 x10^6/uL (4.30-5.70) Hematocrit 16.7 % (39.0-53.0) Mean Corpuscular Volume 94 fL (79-100) Mean Corpuscular Hemoglobin 34 pg (25-35) Mean Corpuscular Hemoglobin Concent 36 g/dL (31-37) Red Cell Distribution Width 17.2 % (11.5-14.5) Platelet Count 23 x10^3/uL (140-400) Neutrophils (%) (Auto) 30 % (31-73) Lymphocytes (%) (Auto) 57 % (24-48) Monocytes (%) (Auto) 1 % (0-9) Eosinophils (%) (Auto) 12 % (0-3) Basophils (%) (Auto) 0 % (0-3) Neutrophils # (Auto) 0.3 x10^3uL (1.8-7.7) Lymphocytes # (Auto) 0.6 x10^3/uL (1.0-4.8) Monocytes # (Auto) 0.0 x10^3/uL (0.0-1.1) Eosinophils # (Auto) 0.1 x10^3/uL (0.0-0.7) Basophils # (Auto) 0.0 x10^3/uL (0.0-0.2) Sodium Level 139 mmol/L (136-145) Potassium Level 3.7 mmol/L (3.5-5.1) Chloride Level 100 mmol/L (98-107) Carbon Dioxide Level 33 mmol/L (21-32) Anion Gap 6 (6-14) Blood Urea Nitrogen 32 mg/dL (8-26) Creatinine 1.1 mg/dL (0.7-1.3) Estimated GFR (Cockcroft-Gault) 64.2 BUN/Creatinine Ratio 29 (6-20) Glucose Level 196 mg/dL (70-99) Calcium Level 8.5 mg/dL (8.5-10.1) Total Bilirubin 0.5 mg/dL (0.2-1.0) Aspartate Amino Transf (AST/SGOT) 10 U/L (15-37) Alanine Aminotransferase (ALT/SGPT) 10 U/L (16-63) Alkaline Phosphatase 73 U/L (46-116) Total Protein 6.3 g/dL (6.4-8.2) Albumin 2.9 g/dL (3.4-5.0) Albumin/Globulin Ratio 0.9 (1.0-1.7) Test 07/04/17 07:03 07/04/17 08:50 07/04/17 11:56 Glucose (Fingerstick) 187 mg/dL (70-99) 192 mg/dL (70-99) Prothrombin Time 13.7 SEC (11.7-14.0) Prothromb Time International Ratio 1.1 (0.8-1.1) Review of Systems Review of Systems some weakness no nausea Assessment and Plan Assessmemt and Plan Problems Medical Problems: (1) Anemia Status: Acute (2) Shortness of breath Status: Acute Problems: Comment Review of Relevant I have reviewed the following items zuly (where applicable) has been applied. Labs Laboratory Tests Test 07/02/17 16:55 07/02/17 20:45 07/03/17 07:28 07/03/17 07:44 Glucose (Fingerstick) 196 mg/dL (70-99) 206 mg/dL (70-99) 164 mg/dL (70-99) White Blood Count 1.2 x10^3/uL (4.0-11.0) Red Blood Count 1.71 x10^6/uL (4.30-5.70) Hemoglobin 6.0 g/dL (13.0-17.5) Hematocrit 16.8 % (39.0-53.0) Mean Corpuscular Volume 98 fL (79-100) Mean Corpuscular Hemoglobin 35 pg (25-35) Mean Corpuscular Hemoglobin Concent 36 g/dL (31-37) Red Cell Distribution Width 16.4 % (11.5-14.5) Platelet Count 19 x10^3/uL (140-400) Neutrophils (%) (Auto) 24 % (31-73) Lymphocytes (%) (Auto) 63 % (24-48) Monocytes (%) (Auto) 2 % (0-9) Eosinophils (%) (Auto) 10 % (0-3) Basophils (%) (Auto) 0 % (0-3) Neutrophils # (Auto) 0.3 x10^3uL (1.8-7.7) Lymphocytes # (Auto) 0.8 x10^3/uL (1.0-4.8) Monocytes # (Auto) 0.0 x10^3/uL (0.0-1.1) Eosinophils # (Auto) 0.1 x10^3/uL (0.0-0.7) Basophils # (Auto) 0.0 x10^3/uL (0.0-0.2) Sodium Level 141 mmol/L (136-145) Potassium Level 3.6 mmol/L (3.5-5.1) Chloride Level 101 mmol/L (98-107) Carbon Dioxide Level 36 mmol/L (21-32) Anion Gap 4 (6-14) Blood Urea Nitrogen 36 mg/dL (8-26) Creatinine 1.2 mg/dL (0.7-1.3) Estimated GFR (Cockcroft-Gault) 58.1 Glucose Level 168 mg/dL (70-99) Calcium Level 9.3 mg/dL (8.5-10.1) Iron Level 200 ug/dL (65-175) Total Iron Binding Capacity 227 ug/dL (250-450) Iron Saturation 88 % (15-34) Ferritin 461 ng/mL (26-388) Vitamin B12 Level 173 pg/mL (247-911) Serum Folate 8.37 ng/ml (3.2-20.0) Test 07/03/17 11:24 07/03/17 15:00 07/03/17 16:14 07/03/17 22:50 Glucose (Fingerstick) 200 mg/dL (70-99) 312 mg/dL (70-99) 158 mg/dL (70-99) Hemoglobin 6.9 g/dL (13.0-17.5) Test 07/04/17 06:45 07/04/17 07:03 07/04/17 08:50 07/04/17 11:56 White Blood Count 1.1 x10^3/uL (4.0-11.0) Red Blood Count 1.77 x10^6/uL (4.30-5.70) Hemoglobin 6.0 g/dL (13.0-17.5) Hematocrit 16.7 % (39.0-53.0) Mean Corpuscular Volume 94 fL (79-100) Mean Corpuscular Hemoglobin 34 pg (25-35) Mean Corpuscular Hemoglobin Concent 36 g/dL (31-37) Red Cell Distribution Width 17.2 % (11.5-14.5) Platelet Count 23 x10^3/uL (140-400) Neutrophils (%) (Auto) 30 % (31-73) Lymphocytes (%) (Auto) 57 % (24-48) Monocytes (%) (Auto) 1 % (0-9) Eosinophils (%) (Auto) 12 % (0-3) Basophils (%) (Auto) 0 % (0-3) Neutrophils # (Auto) 0.3 x10^3uL (1.8-7.7) Lymphocytes # (Auto) 0.6 x10^3/uL (1.0-4.8) Monocytes # (Auto) 0.0 x10^3/uL (0.0-1.1) Eosinophils # (Auto) 0.1 x10^3/uL (0.0-0.7) Basophils # (Auto) 0.0 x10^3/uL (0.0-0.2) Sodium Level 139 mmol/L (136-145) Potassium Level 3.7 mmol/L (3.5-5.1) Chloride Level 100 mmol/L (98-107) Carbon Dioxide Level 33 mmol/L (21-32) Anion Gap 6 (6-14) Blood Urea Nitrogen 32 mg/dL (8-26) Creatinine 1.1 mg/dL (0.7-1.3) Estimated GFR (Cockcroft-Gault) 64.2 BUN/Creatinine Ratio 29 (6-20) Glucose Level 196 mg/dL (70-99) Calcium Level 8.5 mg/dL (8.5-10.1) Total Bilirubin 0.5 mg/dL (0.2-1.0) Aspartate Amino Transf (AST/SGOT) 10 U/L (15-37) Alanine Aminotransferase (ALT/SGPT) 10 U/L (16-63) Alkaline Phosphatase 73 U/L (46-116) Total Protein 6.3 g/dL (6.4-8.2) Albumin 2.9 g/dL (3.4-5.0) Albumin/Globulin Ratio 0.9 (1.0-1.7) Glucose (Fingerstick) 187 mg/dL (70-99) 192 mg/dL (70-99) Prothrombin Time 13.7 SEC (11.7-14.0) Prothromb Time International Ratio 1.1 (0.8-1.1) Laboratory Tests Test 07/03/17 15:00 07/03/17 16:14 07/03/17 22:50 07/04/17 06:45 Hemoglobin 6.9 g/dL (13.0-17.5) 6.0 g/dL (13.0-17.5) Glucose (Fingerstick) 312 mg/dL (70-99) 158 mg/dL (70-99) White Blood Count 1.1 x10^3/uL (4.0-11.0) Red Blood Count 1.77 x10^6/uL (4.30-5.70) Hematocrit 16.7 % (39.0-53.0) Mean Corpuscular Volume 94 fL (79-100) Mean Corpuscular Hemoglobin 34 pg (25-35) Mean Corpuscular Hemoglobin Concent 36 g/dL (31-37) Red Cell Distribution Width 17.2 % (11.5-14.5) Platelet Count 23 x10^3/uL (140-400) Neutrophils (%) (Auto) 30 % (31-73) Lymphocytes (%) (Auto) 57 % (24-48) Monocytes (%) (Auto) 1 % (0-9) Eosinophils (%) (Auto) 12 % (0-3) Basophils (%) (Auto) 0 % (0-3) Neutrophils # (Auto) 0.3 x10^3uL (1.8-7.7) Lymphocytes # (Auto) 0.6 x10^3/uL (1.0-4.8) Monocytes # (Auto) 0.0 x10^3/uL (0.0-1.1) Eosinophils # (Auto) 0.1 x10^3/uL (0.0-0.7) Basophils # (Auto) 0.0 x10^3/uL (0.0-0.2) Sodium Level 139 mmol/L (136-145) Potassium Level 3.7 mmol/L (3.5-5.1) Chloride Level 100 mmol/L (98-107) Carbon Dioxide Level 33 mmol/L (21-32) Anion Gap 6 (6-14) Blood Urea Nitrogen 32 mg/dL (8-26) Creatinine 1.1 mg/dL (0.7-1.3) Estimated GFR (Cockcroft-Gault) 64.2 BUN/Creatinine Ratio 29 (6-20) Glucose Level 196 mg/dL (70-99) Calcium Level 8.5 mg/dL (8.5-10.1) Total Bilirubin 0.5 mg/dL (0.2-1.0) Aspartate Amino Transf (AST/SGOT) 10 U/L (15-37) Alanine Aminotransferase (ALT/SGPT) 10 U/L (16-63) Alkaline Phosphatase 73 U/L (46-116) Total Protein 6.3 g/dL (6.4-8.2) Albumin 2.9 g/dL (3.4-5.0) Albumin/Globulin Ratio 0.9 (1.0-1.7) Test 07/04/17 07:03 07/04/17 08:50 07/04/17 11:56 Glucose (Fingerstick) 187 mg/dL (70-99) 192 mg/dL (70-99) Prothrombin Time 13.7 SEC (11.7-14.0) Prothromb Time International Ratio 1.1 (0.8-1.1) Microbiology 07/02/17 Blood Culture - Preliminary, Resulted NO GROWTH AFTER 2 DAYS Medications Current Medications Albuterol/ Ipratropium (Duoneb) 3 ml 1X ONCE NEB Last administered on 09:32; Start 07/02/17 at 09:30; Stop 07/02/17 at 09:31; Status DC Diphenhydramine HCl (Benadryl Oral Elixir) 12.5 mg 1X PRN PRN PO PRE- TRANSFUSION; Start 07/02/17 at 10:30 Pneumococcal Polyvalent Vaccine (Do NOT chart on this placeholder) 1 each 1X ONCE MC ; Start 07/02/17 at 13:45; Stop 07/02/17 at 13:46; Status UNV Potassium Chloride (Klor-Con) 40 meq 1X ONCE PO ; Start 07/02/17 at 14:00; Stop 07/02/17 at 15:29; Status DC Acetaminophen (Tylenol) 650 mg PRN Q6HRS PRN PO FEVER; Start 07/02/17 at 14:00 Ondansetron HCl (Zofran) 4 mg PRN Q6HRS PRN IV NAUSEA/VOMITING; Start at 14:00 Morphine Sulfate 2 mg PRN Q2HR PRN IV PAIN; Start 07/02/17 at 14:00 Tramadol HCl (Ultram) 50 mg PRN Q6HRS PRN PO PAIN Last administered on 20:29; Start 07/02/17 at 14:00 Hydralazine HCl (Apresoline Inj) 10 mg PRN Q4HRS PRN IVP ELEVATED BP, SEE COMMENTS; Start 07/02/17 at 14:00 Docusate Sodium (Colace) 100 mg PRN DAILY PRN PO CONSTIPATION; Start 07/02/17 at 14:00 Allopurinol (Zyloprim) 100 mg DAILY PO Last administered on 07/04/17 10:17; Start 07/03/17 at 09:00 Alprazolam (Xanax) 0.5 mg BID PRN PO ANXIETY / AGITATION Last administered on 07/02/17 20:28; Start 07/02/17 at 14:00 Atorvastatin Calcium (Lipitor) 20 mg HS PO Last administered on 07/03/17 20: 53; Start 07/02/17 at 21:00 Bisacodyl (Dulcolax Supp) 10 mg PRN DAILY PRN RC CONSTIPATION; Start 07/02/17 at 14:00 Vitamin D (Vitamin D3) 1,000 unit DAILY PO Last administered on 07/04/17 10: 17; Start 07/03/17 at 09:00 Finasteride (Proscar) 5 mg DAILY PO Last administered on 07/04/17 10:17; Start 07/03/17 at 09:00 Losartan Potassium (Cozaar) 25 mg DAILY PO ; Start 07/03/17 at 09:00; Stop at 09:00; Status DC Mirtazapine (Remeron) 15 mg QHS PO Last administered on 07/03/17 20:53; Start 07/02/17 at 21:00 Nystatin (Nystop) 1 bridgette BID TP Last administered on 07/04/17 10:11; Start at 21:00 Potassium Chloride (Klor-Con) 20 meq DAILYWBKFT PO Last administered on 10:17; Start 07/03/17 at 08:00 Prednisone (Prednisone) 5 mg DAILY PO Last administered on 07/04/17 10:16; Start 07/03/17 at 09:00 Tamsulosin HCl (Flomax) 0.4 mg HS PO Last administered on 07/03/17 20:53; Start 07/02/17 at 21:00 Trazodone HCl (Desyrel) 75 mg HS PO Last administered on 07/03/17 20:53; Start 07/02/17 at 21:00 Verapamil HCl (Calan Sr) 360 mg DAILY PO Last administered on 07/04/17 10:17 ; Start 07/03/17 at 09:00 Venlafaxine HCl (Effexor Xr) 75 mg DAILY PO Last administered on 07/04/17 10: 18; Start 07/03/17 at 09:00 Insulin Aspart (NovoLOG) 0-9 UNITS TIDWMEALS SQ Last administered on 16:25; Start 07/02/17 at 17:00 Dextrose (Dextrose 50%-Water Syringe) 12.5 gm PRN Q15MIN PRN IV SEE COMMENTS; Start 07/02/17 at 14:15 Nystatin (Nystop) 1 bridgette BID TP ; Start 07/02/17 at 21:00; Stop 07/02/17 at 21: 00; Status DC Potassium Chloride (KCl Oral Soln) 40 meq 1X ONCE PO Last administered on 17:33; Start 07/02/17 at 15:30; Stop 07/02/17 at 15:35; Status DC Cyanocobalamin (Vitamin B-12) 1,000 mcg DAILY IM Last administered on 10:11; Start 07/04/17 at 09:00; Stop 07/11/17 at 08:59 Active Scripts Active Verapamil Er (Verapamil Hcl) 180 Mg Tablet.er 360 Mg PO DAILY Cozaar (Losartan Potassium) 25 Mg Tablet 25 Mg PO DAILY Klor-Con M20 (Potassium Chloride) 20 Meq Tab.er.prt 20 Meq PO DAILYWBKFT Furosemide 40 Mg Tablet 40 Mg PO DAILY Reported Proventil Hfa Inhaler (Albuterol Sulfate) 6.7 Gm Hfa.aer.ad 2 Puff IH PRN Q4HRS PRN Trazodone Hcl 50 Mg Tablet 75 Mg PO HS Prednisone 10 Mg Tablet 5 Mg PO DAILY Venlafaxine Hcl Er (Venlafaxine Hcl) 75 Mg Cap.er.24h 75 Cap PO DAILY Milk Of Magnesia (Magnesium Hydroxide) 2,400 Mg/10 Ml Oral.susp 1,200 Mg PO Alprazolam 0.5 Mg Tablet 1 Tab PO TID Allopurinol 100 Mg Tablet 1 Tab PO DAILY Nystatin-Triamcinolone Cream (Nystatin/Triamcin) 15 Gm Cream..g. 1 Bridgette TP BID Calmoseptine Ointment (Menthol/Zinc Oxide) 3.5 Gm Oint.pack 3.5 Gm TP BID Tylenol (Acetaminophen) 325 Mg Tablet 650 Mg PO Q6HRS PRN Furosemide 20 Mg Tablet 1 Tab PO DAILY16 Metolazone 2.5 Mg Tablet 2.5 Mg PO DAILY Novolog Flexpen (Insulin Aspart) 100 Unit/1 Ml Insuln.pen 15 Unit SQ TIDWMEALS Alprazolam 0.5 Mg Tablet 0.5 Mg PO BID PRN Vitamin D3 (Cholecalciferol (Vitamin D3)) 1,000 Unit Tablet 1,000 Unit PO DAILY Imodium Multi-Symptom Rel Cplt (Loperamide Hcl/Simethicone) 1 Each Tablet 1 Each PO PRN BID PRN Metformin Hcl 1,000 Mg Tablet 1,000 Mg PO BID Azathioprine 50 Mg Tablet 100 Mg PO BID Remeron (Mirtazapine) 15 Mg Tablet 1 Tab PO QHS Meloxicam 15 Mg Tablet 1 Tab PO DAILY Dulcolax (Bisacodyl) 10 Mg Supp.rect 10 Mg RC PRN DAILY PRN Nystatin 15 Gm Powder 1 Bridgette TP BID Levemir Flextouch (Insulin Detemir) 100 Unit/1 Ml Insuln.pen 75 Unit SQ HS Tamsulosin Hcl 0.4 Mg Cap.er.24h 0.4 Mg PO HS Atorvastatin Calcium 20 Mg Tablet 20 Mg PO HS Finasteride 5 Mg Tablet 5 Mg PO DAILY Vitals/I & O Vital Sign - Last 24 Hours 07/03/17 07/03/17 07/03/17 07/03/17 13:56 14:49 19:30 19:30 Temp 97.4 97.9 97.4 97.9 Pulse 79 71 79 Resp 16 18 20 B/P (MAP) 105/54 127/51 (76) 110/47 (68) Pulse Ox 92 100 O2 Delivery Nasal Cannula Nasal Cannula Nasal Cannula O2 Flow Rate 2.0 2.0 2.0 07/03/17 07/04/17 07/04/17 07/04/17 22:45 03:10 07:00 10:17 Temp 98.2 97.7 97.6 98.2 97.7 97.6 Pulse 68 70 70 70 Resp 18 16 18 B/P (MAP) 101/45 (63) 107/48 (67) 102/49 (66) 112/52 Pulse Ox 95 99 99 O2 Delivery Nasal Cannula Nasal Cannula Nasal Cannula O2 Flow Rate 2.0 2.0 2.0 07/04/17 11:00 Temp 97.6 97.6 Pulse 72 Resp 18 B/P (MAP) 112/52 (72) Pulse Ox 96 O2 Delivery Nasal Cannula O2 Flow Rate 2.0 Intake and Output 07/03/17 07/03/17 07/04/17 15:00 23:00 07:00 Intake Total 315 ml 600 ml 250 ml Output Total 1400 ml 1100 ml Balance 315 ml -800 ml -850 ml NICANOR DE OLIVEIRA MD Jul 04, 2017 12:52
[2017-07-04] MEDS: TAMSULOSIN 0.4 MG CAP.ER.24H. PO SCH (20:03)
[2017-07-04] MEDS: traZODone 50 MG TABLET. PO SCH (20:03)
[2017-07-04] MEDS: ATORVASTATIN CALCIUM 20 MG TABLET PO SCH (20:03)
[2017-07-04] MEDS: MIRTAZAPINE 15 MG TABLET PO SCH (20:03)
[2017-07-04] MEDS: ACETAMINOPHEN 325 MG TABLET. PO PRN (20:05)
[2017-07-04] MEDS ORDERED: IV NORMAL SALINE 1000ML BAG 1,000 ML IV SCH (21:45)
[2017-07-04] MEDS: CEFEPIME HCL IV Push 2 GM VIAL. IVP SCH (21:52)
[2017-07-04] MEDS ORDERED: IV NORMAL SALINE 1000ML BAG 1,000 ML IV ONE (22:00)
[2017-07-04] MEDS ORDERED: CEFEPIME HCL 2 GM in IV DEXTROSE 5% 100 ML IV SCH (22:00)
[2017-07-04 22:54] LABS: BILIRUBIN,URINE NEGATIVE (NEG); GLUCOSE,URINE NEGATIVE (NEG); NITRITE,URINE NEGATIVE (NEG); PH,URINE 5.5; PROTEIN,URINE 30 mg/dL (NEG-TRACE); UROBILINOGEN,URINE 0.2 mg/dL (0.2 mg/dL)
[2017-07-04 22:58] LABS: BACTERIA,URINE 0 /HPF (0-FEW); RBC,URINE >40 /HPF (0-2); WBC,URINE OCC /HPF (0-4)
[2017-07-04] MEDS: IV NORMAL SALINE 1000ML BAG 1,000 ML IV SCH (23:43)
[2017-07-05] MEDS: IV NORMAL SALINE 1000ML BAG 1,000 ML IV SCH ×3 (02:01→05:49)
[2017-07-05 03:10] VITALS: BP 145/92
[2017-07-05] MEDS: ACETAMINOPHEN 325 MG TABLET. PO PRN ×2 (03:10→14:59)
[2017-07-05] MEDS: CEFEPIME HCL IV Push 2 GM VIAL. IVP SCH ×3 (05:49→21:10)
[2017-07-05 07:00] VITALS: BP 119/37
[2017-07-05] MEDS: POTASSIUM CHLORIDE 20 MEQ TABLET.ER. PO SCH (08:00)
--- NOTE | 2017-07-05 08:26 | RAD ---
Single view of the Chest 07/04/2017 11:26 PM Indication: fever Comparison: Chest radiograph July 02, 2017 Findings: The patient is significantly rotated. Low lung volumes with probable mild basilar atelectasis are seen. No pneumothorax or definitive effusion is seen. Heart size appears to be top normal but grossly stable. No new infiltrate is identified. Severe degenerative changes of the right shoulder again noted. The previously seen possible impacted humeral neck fracture is less well visualized on today's exam. Chronicity of finding is uncertain. Impression: Low lung volumes with probable mild basilar atelectasis. Otherwise stable chest.
[2017-07-05] MEDS: VENLAFAXINE XR 37.5 MG CAP.ER.24H. PO SCH (08:59)
[2017-07-05] MEDS: FINASTERIDE 5 MG TABLET. PO SCH (08:59)
[2017-07-05] MEDS: predniSONE 10 MG TABLET PO SCH (08:59)
[2017-07-05 09:00] LABS: BASO % 1 % (0-3); EOS % 5 % (0-3); HEMATOCRIT 21.1 % (39.0-53.0); HEMOGLOBIN 7.3 g/dL (13.0-17.5); LYMPH # 0.1 x10^3/uL (1.0-4.8); LYMPH % 14 % (24-48); MEAN CORPUSCULAR HEMOGLOBIN 32 pg (25-35); MEAN CORPUSCULAR HGB CONC 35 g/dL (31-37); MEAN CORPUSCULAR VOLUME 93 fL (79-100); MONO % 1 % (0-9); NEUT % 79 % (31-73); RED BLOOD COUNT 2.27 x10^6/uL (4.30-5.70); RED CELL DISTRIBUTION WIDTH 16.6 % (11.5-14.5)
[2017-07-05] MEDS: ALLOPURINOL 100 MG TABLET. PO SCH (09:00)
[2017-07-05] MEDS: VERAPAMIL SR 180 MG TABLET.ER. PO SCH (09:00)
[2017-07-05] MEDS: CHOLECALCIFEROL (VITAMIN D3) 1,000 UNIT TABLET PO SCH (09:00)
[2017-07-05 09:24] LABS: PLATELET COUNT 24 x10^3/uL (140-400); WHITE BLOOD COUNT 0.8 x10^3/uL (4.0-11.0)
[2017-07-05] MEDS: NYSTATIN TOPICAL POWDER 15GM BOTTLE. TP SCH ×2 (09:33→21:03)
[2017-07-05] MEDS: CYANOCOBALAMIN (VITAMIN B-12) 1,000 MCG/ML VIAL IM SCH (09:34)
[2017-07-05] MEDS: INSULIN ASPART 300 UNITS/3 ML INSULN.PEN SQ SCH ×3 (09:45→17:39)
[2017-07-05] MEDS ORDERED: LORazepam INTENSOL 2 MG/ML ORAL.CONC SL PRN (10:30)
[2017-07-05 11:00] VITALS: BP 149/114
--- NOTE | 2017-07-05 12:21 | PDOC ---
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 CHF htn og, vasomotor DM2 on insulin ckd 3 mild malnutrition HLD GERD BPH depression SN[facility] resident sacral ulcer, stage 2 on admit hypokalemia History of Present Illness History of Present Illness fever last night, started cefepime for neutropenic fever, family is leaning to hospice, pt has refused some priro and current treatments onco consult following, DC imuran PRBC transfusion today, again PTOT is now DNR, DC tele, plan hospice at DC Vitals Vitals Vital Signs Date Time Temp Pulse Resp B/P (MAP) Pulse Ox O2 Delivery O2 Flow Rate FiO2 07/05/17 09:00 83 119/37 07/05/17 08:00 Nasal Cannula 2.0 07/05/17 07:00 100.8 18 100 100.8 Physical Exam General: Alert, Cooperative, No acute distress Heart: Normal S1 Lungs: Clear, Other Abdomen: Normal bowel sounds Extremities: No clubbing, No cyanosis Skin: Other (ecchymoses) Labs LABS Laboratory Tests Test 07/04/17 16:33 07/04/17 21:15 07/04/17 21:50 07/04/17 22:30 Glucose (Fingerstick) 234 mg/dL (70-99) 239 mg/dL (70-99) Lactic Acid Level 1.2 mmol/L (0.4-2.0) Urine Collection Type Unknown Urine Color Liliana Urine Clarity Clear Urine pH 5.5 Urine Specific Mcbrides 1.020 Urine Protein 30 mg/dL (NEG-TRACE) Urine Glucose (UA) Negative mg/dL (NEG) Urine Ketones (Stick) Negative mg/dL (NEG) Urine Blood Large (NEG) Urine Nitrite Negative (NEG) Urine Bilirubin Negative (NEG) Urine Urobilinogen Dipstick 0.2 mg/dL (0.2 mg/dL) Urine Leukocyte Esterase Small (NEG) Urine RBC >40 /HPF (0-2) Urine WBC Occ /HPF (0-4) Urine Bacteria 0 /HPF (0-FEW) Urine Mucus Slight /LPF Test 07/05/17 04:45 07/05/17 07:57 07/05/17 11:50 White Blood Count 0.8 x10^3/uL (4.0-11.0) Red Blood Count 2.27 x10^6/uL (4.30-5.70) Hemoglobin 7.3 g/dL (13.0-17.5) Hematocrit 21.1 % (39.0-53.0) Mean Corpuscular Volume 93 fL (79-100) Mean Corpuscular Hemoglobin 32 pg (25-35) Mean Corpuscular Hemoglobin Concent 35 g/dL (31-37) Red Cell Distribution Width 16.6 % (11.5-14.5) Platelet Count 24 x10^3/uL (140-400) Neutrophils (%) (Auto) 79 % (31-73) Lymphocytes (%) (Auto) 14 % (24-48) Monocytes (%) (Auto) 1 % (0-9) Eosinophils (%) (Auto) 5 % (0-3) Basophils (%) (Auto) 1 % (0-3) Neutrophils # (Auto) 0.6 x10^3uL (1.8-7.7) Lymphocytes # (Auto) 0.1 x10^3/uL (1.0-4.8) Monocytes # (Auto) 0.0 x10^3/uL (0.0-1.1) Eosinophils # (Auto) 0.0 x10^3/uL (0.0-0.7) Basophils # (Auto) 0.0 x10^3/uL (0.0-0.2) Reticulocyte Count (auto) 0.4 % (0.5-2.5) Glucose (Fingerstick) 232 mg/dL (70-99) 191 mg/dL (70-99) Assessment and Plan Assessmemt and Plan Problems Medical Problems: (1) Anemia Status: Acute (2) Shortness of breath Status: Acute Problems: Comment Review of Relevant I have reviewed the following items zuly (where applicable) has been applied. Labs Laboratory Tests Test 07/03/17 15:00 07/03/17 16:14 07/03/17 22:50 07/04/17 06:45 Hemoglobin 6.9 g/dL (13.0-17.5) 6.0 g/dL (13.0-17.5) Glucose (Fingerstick) 312 mg/dL (70-99) 158 mg/dL (70-99) White Blood Count 1.1 x10^3/uL (4.0-11.0) Red Blood Count 1.77 x10^6/uL (4.30-5.70) Hematocrit 16.7 % (39.0-53.0) Mean Corpuscular Volume 94 fL (79-100) Mean Corpuscular Hemoglobin 34 pg (25-35) Mean Corpuscular Hemoglobin Concent 36 g/dL (31-37) Red Cell Distribution Width 17.2 % (11.5-14.5) Platelet Count 23 x10^3/uL (140-400) Neutrophils (%) (Auto) 30 % (31-73) Lymphocytes (%) (Auto) 57 % (24-48) Monocytes (%) (Auto) 1 % (0-9) Eosinophils (%) (Auto) 12 % (0-3) Basophils (%) (Auto) 0 % (0-3) Neutrophils # (Auto) 0.3 x10^3uL (1.8-7.7) Lymphocytes # (Auto) 0.6 x10^3/uL (1.0-4.8) Monocytes # (Auto) 0.0 x10^3/uL (0.0-1.1) Eosinophils # (Auto) 0.1 x10^3/uL (0.0-0.7) Basophils # (Auto) 0.0 x10^3/uL (0.0-0.2) Sodium Level 139 mmol/L (136-145) Potassium Level 3.7 mmol/L (3.5-5.1) Chloride Level 100 mmol/L (98-107) Carbon Dioxide Level 33 mmol/L (21-32) Anion Gap 6 (6-14) Blood Urea Nitrogen 32 mg/dL (8-26) Creatinine 1.1 mg/dL (0.7-1.3) Estimated GFR (Cockcroft-Gault) 64.2 BUN/Creatinine Ratio 29 (6-20) Glucose Level 196 mg/dL (70-99) Calcium Level 8.5 mg/dL (8.5-10.1) Total Bilirubin 0.5 mg/dL (0.2-1.0) Aspartate Amino Transf (AST/SGOT) 10 U/L (15-37) Alanine Aminotransferase (ALT/SGPT) 10 U/L (16-63) Alkaline Phosphatase 73 U/L (46-116) Total Protein 6.3 g/dL (6.4-8.2) Albumin 2.9 g/dL (3.4-5.0) Albumin/Globulin Ratio 0.9 (1.0-1.7) Test 07/04/17 07:03 07/04/17 08:50 07/04/17 11:56 07/04/17 16:33 Glucose (Fingerstick) 187 mg/dL (70-99) 192 mg/dL (70-99) 234 mg/dL (70-99) Prothrombin Time 13.7 SEC (11.7-14.0) Prothromb Time International Ratio 1.1 (0.8-1.1) Test 07/04/17 21:15 07/04/17 21:50 07/04/17 22:30 07/05/17 04:45 Glucose (Fingerstick) 239 mg/dL (70-99) Lactic Acid Level 1.2 mmol/L (0.4-2.0) Urine Collection Type Unknown Urine Color Liliana Urine Clarity Clear Urine pH 5.5 Urine Specific Mcbrides 1.020 Urine Protein 30 mg/dL (NEG-TRACE) Urine Glucose (UA) Negative mg/dL (NEG) Urine Ketones (Stick) Negative mg/dL (NEG) Urine Blood Large (NEG) Urine Nitrite Negative (NEG) Urine Bilirubin Negative (NEG) Urine Urobilinogen Dipstick 0.2 mg/dL (0.2 mg/dL) Urine Leukocyte Esterase Small (NEG) Urine RBC >40 /HPF (0-2) Urine WBC Occ /HPF (0-4) Urine Bacteria 0 /HPF (0-FEW) Urine Mucus Slight /LPF White Blood Count 0.8 x10^3/uL (4.0-11.0) Red Blood Count 2.27 x10^6/uL (4.30-5.70) Hemoglobin 7.3 g/dL (13.0-17.5) Hematocrit 21.1 % (39.0-53.0) Mean Corpuscular Volume 93 fL (79-100) Mean Corpuscular Hemoglobin 32 pg (25-35) Mean Corpuscular Hemoglobin Concent 35 g/dL (31-37) Red Cell Distribution Width 16.6 % (11.5-14.5) Platelet Count 24 x10^3/uL (140-400) Neutrophils (%) (Auto) 79 % (31-73) Lymphocytes (%) (Auto) 14 % (24-48) Monocytes (%) (Auto) 1 % (0-9) Eosinophils (%) (Auto) 5 % (0-3) Basophils (%) (Auto) 1 % (0-3) Neutrophils # (Auto) 0.6 x10^3uL (1.8-7.7) Lymphocytes # (Auto) 0.1 x10^3/uL (1.0-4.8) Monocytes # (Auto) 0.0 x10^3/uL (0.0-1.1) Eosinophils # (Auto) 0.0 x10^3/uL (0.0-0.7) Basophils # (Auto) 0.0 x10^3/uL (0.0-0.2) Reticulocyte Count (auto) 0.4 % (0.5-2.5) Test 07/05/17 07:57 07/05/17 11:50 Glucose (Fingerstick) 232 mg/dL (70-99) 191 mg/dL (70-99) Laboratory Tests Test 07/04/17 16:33 07/04/17 21:15 07/04/17 21:50 07/04/17 22:30 Glucose (Fingerstick) 234 mg/dL (70-99) 239 mg/dL (70-99) Lactic Acid Level 1.2 mmol/L (0.4-2.0) Urine Collection Type Unknown Urine Color Liliana Urine Clarity Clear Urine pH 5.5 Urine Specific Mcbrides 1.020 Urine Protein 30 mg/dL (NEG-TRACE) Urine Glucose (UA) Negative mg/dL (NEG) Urine Ketones (Stick) Negative mg/dL (NEG) Urine Blood Large (NEG) Urine Nitrite Negative (NEG) Urine Bilirubin Negative (NEG) Urine Urobilinogen Dipstick 0.2 mg/dL (0.2 mg/dL) Urine Leukocyte Esterase Small (NEG) Urine RBC >40 /HPF (0-2) Urine WBC Occ /HPF (0-4) Urine Bacteria 0 /HPF (0-FEW) Urine Mucus Slight /LPF Test 07/05/17 04:45 07/05/17 07:57 07/05/17 11:50 White Blood Count 0.8 x10^3/uL (4.0-11.0) Red Blood Count 2.27 x10^6/uL (4.30-5.70) Hemoglobin 7.3 g/dL (13.0-17.5) Hematocrit 21.1 % (39.0-53.0) Mean Corpuscular Volume 93 fL (79-100) Mean Corpuscular Hemoglobin 32 pg (25-35) Mean Corpuscular Hemoglobin Concent 35 g/dL (31-37) Red Cell Distribution Width 16.6 % (11.5-14.5) Platelet Count 24 x10^3/uL (140-400) Neutrophils (%) (Auto) 79 % (31-73) Lymphocytes (%) (Auto) 14 % (24-48) Monocytes (%) (Auto) 1 % (0-9) Eosinophils (%) (Auto) 5 % (0-3) Basophils (%) (Auto) 1 % (0-3) Neutrophils # (Auto) 0.6 x10^3uL (1.8-7.7) Lymphocytes # (Auto) 0.1 x10^3/uL (1.0-4.8) Monocytes # (Auto) 0.0 x10^3/uL (0.0-1.1) Eosinophils # (Auto) 0.0 x10^3/uL (0.0-0.7) Basophils # (Auto) 0.0 x10^3/uL (0.0-0.2) Reticulocyte Count (auto) 0.4 % (0.5-2.5) Glucose (Fingerstick) 232 mg/dL (70-99) 191 mg/dL (70-99) Microbiology 07/02/17 Blood Culture - Preliminary, Resulted NO GROWTH AFTER 3 DAYS Medications Current Medications Albuterol/ Ipratropium (Duoneb) 3 ml 1X ONCE NEB Last administered on t 09:32; Start 07/02/17 at 09:30; Stop 07/02/17 at 09:31; Status DC Diphenhydramine HCl (Benadryl Oral Elixir) 12.5 mg 1X PRN PRN PO PRE- TRANSFUSION; Start 07/02/17 at 10:30 Pneumococcal Polyvalent Vaccine (Do NOT chart on this placeholder) 1 each 1X ONCE MC ; Start 07/02/17 at 13:45; Stop 07/02/17 at 13:46; Status UNV Potassium Chloride (Klor-Con) 40 meq 1X ONCE PO ; Start 07/02/17 at 14:00; Stop 07/02/17 at 15:29; Status DC Acetaminophen (Tylenol) 650 mg PRN Q6HRS PRN PO FEVER Last administered on 03:10; Start 07/02/17 at 14:00 Ondansetron HCl (Zofran) 4 mg PRN Q6HRS PRN IV NAUSEA/VOMITING Last administered on 07/04/17 17:30; Start 07/02/17 at 14:00 Morphine Sulfate 2 mg PRN Q2HR PRN IV PAIN; Start 07/02/17 at 14:00 Tramadol HCl (Ultram) 50 mg PRN Q6HRS PRN PO PAIN Last administered on 20:29; Start 07/02/17 at 14:00 Hydralazine HCl (Apresoline Inj) 10 mg PRN Q4HRS PRN IVP ELEVATED BP, SEE COMMENTS; Start 07/02/17 at 14:00 Docusate Sodium (Colace) 100 mg PRN DAILY PRN PO CONSTIPATION; Start 07/02/17 at 14:00 Allopurinol (Zyloprim) 100 mg DAILY PO Last administered on 07/04/17 10:17; Start 07/03/17 at 09:00 Alprazolam (Xanax) 0.5 mg BID PRN PO ANXIETY / AGITATION Last administered on 07/02/17 20:28; Start 07/02/17 at 14:00 Atorvastatin Calcium (Lipitor) 20 mg HS PO Last administered on 07/04/17 20: 03; Start 07/02/17 at 21:00 Bisacodyl (Dulcolax Supp) 10 mg PRN DAILY PRN RC CONSTIPATION; Start 07/02/17 at 14:00 Vitamin D (Vitamin D3) 1,000 unit DAILY PO Last administered on 07/04/17 10: 17; Start 07/03/17 at 09:00 Finasteride (Proscar) 5 mg DAILY PO Last administered on 07/04/17 10:17; Start 07/03/17 at 09:00 Losartan Potassium (Cozaar) 25 mg DAILY PO ; Start 07/03/17 at 09:00; Stop at 09:00; Status DC Mirtazapine (Remeron) 15 mg QHS PO Last administered on 07/04/17 20:03; Start 07/02/17 at 21:00 Nystatin (Nystop) 1 bridgette BID TP Last administered on 07/05/17 09:33; Start at 21:00 Potassium Chloride (Klor-Con) 20 meq DAILYWBKFT PO Last administered on 10:17; Start 07/03/17 at 08:00 Prednisone (Prednisone) 5 mg DAILY PO Last administered on 07/04/17 10:16; Start 07/03/17 at 09:00 Tamsulosin HCl (Flomax) 0.4 mg HS PO Last administered on 07/04/17 20:03; Start 07/02/17 at 21:00 Trazodone HCl (Desyrel) 75 mg HS PO Last administered on 07/04/17 20:03; Start 07/02/17 at 21:00 Verapamil HCl (Calan Sr) 360 mg DAILY PO Last administered on 07/04/17 10:17 ; Start 07/03/17 at 09:00 Venlafaxine HCl (Effexor Xr) 75 mg DAILY PO Last administered on 07/04/17 10: 18; Start 07/03/17 at 09:00 Insulin Aspart (NovoLOG) 0-9 UNITS TIDWMEALS SQ Last administered on 09:45; Start 07/02/17 at 17:00 Dextrose (Dextrose 50%-Water Syringe) 12.5 gm PRN Q15MIN PRN IV SEE COMMENTS; Start 07/02/17 at 14:15 Nystatin (Nystop) 1 bridgette BID TP ; Start 07/02/17 at 21:00; Stop 07/02/17 at 21: 00; Status DC Potassium Chloride (KCl Oral Soln) 40 meq 1X ONCE PO Last administered on 17:33; Start 07/02/17 at 15:30; Stop 07/02/17 at 15:35; Status DC Cyanocobalamin (Vitamin B-12) 1,000 mcg DAILY IM Last administered on 09:34; Start 07/04/17 at 09:00; Stop 07/11/17 at 08:59 Cefepime HCl 2 gm/ Dextrose 100 ml @ 200 mls/hr Q8HRS IV ; Start 07/04/17 at 22:00; Status UNV Cefepime HCl (Maxipime) 2 gm Q8HRS IVP Last administered on 07/05/17 05:49; Start 07/04/17 at 22:00 Sodium Chloride 1,000 ml @ 500 mls/hr Q2H IV Last administered on 07/04/17 21:50; Start 07/04/17 at 21:45; Stop 07/04/17 at 22:30; Status DC Sodium Chloride 1,000 ml @ 600 mls/hr Q1H40M IV Last administered on 05:49; Start 07/05/17 at 00:00; Stop 07/05/17 at 06:00; Status DC Sodium Chloride 1,000 ml @ 500 mls/hr 1X ONCE IV Last administered on 22:35; Start 07/04/17 at 22:00; Stop 07/04/17 at 23:59; Status DC Lorazepam (Ativan Intensol) 2 mg PRN Q2HR PRN SL ANXIETY / AGITATION; Start at 10:30 Active Scripts Active Verapamil Er (Verapamil Hcl) 180 Mg Tablet.er 360 Mg PO DAILY Cozaar (Losartan Potassium) 25 Mg Tablet 25 Mg PO DAILY Klor-Con M20 (Potassium Chloride) 20 Meq Tab.er.prt 20 Meq PO DAILYWBKFT Furosemide 40 Mg Tablet 40 Mg PO DAILY Reported Proventil Hfa Inhaler (Albuterol Sulfate) 6.7 Gm Hfa.aer.ad 2 Puff IH PRN Q4HRS PRN Trazodone Hcl 50 Mg Tablet 75 Mg PO HS Prednisone 10 Mg Tablet 5 Mg PO DAILY Venlafaxine Hcl Er (Venlafaxine Hcl) 75 Mg Cap.er.24h 75 Cap PO DAILY Milk Of Magnesia (Magnesium Hydroxide) 2,400 Mg/10 Ml Oral.susp 1,200 Mg PO Alprazolam 0.5 Mg Tablet 1 Tab PO TID Allopurinol 100 Mg Tablet 1 Tab PO DAILY Nystatin-Triamcinolone Cream (Nystatin/Triamcin) 15 Gm Cream..g. 1 Bridgette TP BID Calmoseptine Ointment (Menthol/Zinc Oxide) 3.5 Gm Oint.pack 3.5 Gm TP BID Tylenol (Acetaminophen) 325 Mg Tablet 650 Mg PO Q6HRS PRN Furosemide 20 Mg Tablet 1 Tab PO DAILY16 Metolazone 2.5 Mg Tablet 2.5 Mg PO DAILY Novolog Flexpen (Insulin Aspart) 100 Unit/1 Ml Insuln.pen 15 Unit SQ TIDWMEALS Alprazolam 0.5 Mg Tablet 0.5 Mg PO BID PRN Vitamin D3 (Cholecalciferol (Vitamin D3)) 1,000 Unit Tablet 1,000 Unit PO DAILY Imodium Multi-Symptom Rel Cplt (Loperamide Hcl/Simethicone) 1 Each Tablet 1 Each PO PRN BID PRN Metformin Hcl 1,000 Mg Tablet 1,000 Mg PO BID Azathioprine 50 Mg Tablet 100 Mg PO BID Remeron (Mirtazapine) 15 Mg Tablet 1 Tab PO QHS Meloxicam 15 Mg Tablet 1 Tab PO DAILY Dulcolax (Bisacodyl) 10 Mg Supp.rect 10 Mg RC PRN DAILY PRN Nystatin 15 Gm Powder 1 Bridgette TP BID Levemir Flextouch (Insulin Detemir) 100 Unit/1 Ml Insuln.pen 75 Unit SQ HS Tamsulosin Hcl 0.4 Mg Cap.er.24h 0.4 Mg PO HS Atorvastatin Calcium 20 Mg Tablet 20 Mg PO HS Finasteride 5 Mg Tablet 5 Mg PO DAILY Vitals/I & O Vital Sign - Last 24 Hours 07/04/17 07/04/17 07/04/17 07/04/17 12:45 13:00 13:48 14:00 Temp 97.6 97.8 97.6 98.1 97.6 97.8 97.6 98.1 Pulse 80 81 87 88 Resp 20 18 18 16 B/P (MAP) 108/47 120/57 100/55 115/49 07/04/17 07/04/17 07/04/17 07/04/17 15:00 15:00 19:15 19:25 Temp 98.1 97.6 101.0 98.1 97.6 101.0 Pulse 89 90 87 Resp 18 18 19 B/P (MAP) 109/52 (71) 109/51 122/99 (107) Pulse Ox 92 96 O2 Delivery Nasal Cannula Nasal Cannula Nasal Cannula O2 Flow Rate 2.0 2.0 2.0 07/04/17 07/05/17 07/05/17 07/05/17 22:49 00:18 03:10 07:00 Temp 101.9 98.3 102.7 100.8 101.9 98.3 102.7 100.8 Pulse 92 67 83 Resp 25 20 18 B/P (MAP) 109/42 (64) 145/92 (109) 119/37 (64) Pulse Ox 99 96 100 O2 Delivery Nasal Cannula Nasal Cannula Nasal Cannula O2 Flow Rate 2.0 2.0 2.0 07/05/17 07/05/17 08:00 09:00 Pulse 83 B/P (MAP) 119/37 O2 Delivery Nasal Cannula O2 Flow Rate 2.0 Intake and Output 07/04/17 07/04/17 07/05/17 15:00 23:00 07:00 Intake Total 340 ml 380 ml 4210 ml Output Total 1200 ml 650 ml Balance 340 ml -820 ml 3560 ml NICANOR DE OLIVEIRA MD Jul 05, 2017 12:21
--- NOTE | 2017-07-05 12:27 | PDOC ---
PROGRESS NOTES Subjective Subjective HPI - f/u of Normochromic normocytic anemia and pancytopenia ROS - has fever Objective Objective Vital Signs Date Time Temp Pulse Resp B/P (MAP) Pulse Ox O2 Delivery O2 Flow Rate FiO2 07/05/17 09:00 83 119/37 07/05/17 08:00 Nasal Cannula 2.0 07/05/17 07:00 100.8 18 100 100.8 Intake and Output 07/05/17 07:00 Intake Total 4930 ml Output Total 1850 ml Balance 3080 ml Intake Oral 250 ml IV Total 3960 ml Blood Product IV Normal Saline Flush 720 ml Output Urine Total 1850 ml Physical Exam General: No acute distress Neck: No JVD Assessment Assessment Problems Medical Problems: (1) Anemia Status: Acute (2) Shortness of breath Status: Acute IMPRESSION AND PLAN: 1. Normochromic normocytic anemia secondary to anemia due to chronic disease. In addition, he has B12 deficiency. His B12 level is only 173 on 07/03/2017, contributing to anemia. In addition, he is on Imuran for rheumatoid arthritis management, which would also cause pancytopenia. His iron studies are suggestive of anemia of chronic disease. Iron level was 200, TIBC 227, iron saturation 88, folic acid 8.37, ferritin 461. Hb worse at 6.0 on 07/04/17. s/p PRBC Hb now 7.3 on 07/05/17 Canceled Bone marrow bx per family as focus is on comfort care and no invasive procedures. I started him on vitamin B12 supplementation 1000 mcg intramuscularly daily for 7 days from 07/04/17. 2. Severe neutropenia secondary to Imuran, rheumatoid arthritis, vitamin B12 deficiency. Plan: Neutropenic precautions. Continue to monitor CBC. 3. Severe thrombocytopenia, no clinical evidence of bleeding. If he has any significant bleeding, then he would need platelet transfusions. 4. Rheumatoid arthritis. He is on Imuran per care home records. Imuran can cause pancytopenia, and hence, it has been discontinued during this admission. I agree to hold Imuran. 5. Fever, consult ID I d/w RN Comment Review of Relevant I have reviewed the following items zuly (where applicable) has been applied. Labs Laboratory Tests Test 07/03/17 15:00 07/03/17 16:14 07/03/17 22:50 07/04/17 06:45 Hemoglobin 6.9 g/dL (13.0-17.5) 6.0 g/dL (13.0-17.5) Glucose (Fingerstick) 312 mg/dL (70-99) 158 mg/dL (70-99) White Blood Count 1.1 x10^3/uL (4.0-11.0) Red Blood Count 1.77 x10^6/uL (4.30-5.70) Hematocrit 16.7 % (39.0-53.0) Mean Corpuscular Volume 94 fL (79-100) Mean Corpuscular Hemoglobin 34 pg (25-35) Mean Corpuscular Hemoglobin Concent 36 g/dL (31-37) Red Cell Distribution Width 17.2 % (11.5-14.5) Platelet Count 23 x10^3/uL (140-400) Neutrophils (%) (Auto) 30 % (31-73) Lymphocytes (%) (Auto) 57 % (24-48) Monocytes (%) (Auto) 1 % (0-9) Eosinophils (%) (Auto) 12 % (0-3) Basophils (%) (Auto) 0 % (0-3) Neutrophils # (Auto) 0.3 x10^3uL (1.8-7.7) Lymphocytes # (Auto) 0.6 x10^3/uL (1.0-4.8) Monocytes # (Auto) 0.0 x10^3/uL (0.0-1.1) Eosinophils # (Auto) 0.1 x10^3/uL (0.0-0.7) Basophils # (Auto) 0.0 x10^3/uL (0.0-0.2) Sodium Level 139 mmol/L (136-145) Potassium Level 3.7 mmol/L (3.5-5.1) Chloride Level 100 mmol/L (98-107) Carbon Dioxide Level 33 mmol/L (21-32) Anion Gap 6 (6-14) Blood Urea Nitrogen 32 mg/dL (8-26) Creatinine 1.1 mg/dL (0.7-1.3) Estimated GFR (Cockcroft-Gault) 64.2 BUN/Creatinine Ratio 29 (6-20) Glucose Level 196 mg/dL (70-99) Calcium Level 8.5 mg/dL (8.5-10.1) Total Bilirubin 0.5 mg/dL (0.2-1.0) Aspartate Amino Transf (AST/SGOT) 10 U/L (15-37) Alanine Aminotransferase (ALT/SGPT) 10 U/L (16-63) Alkaline Phosphatase 73 U/L (46-116) Total Protein 6.3 g/dL (6.4-8.2) Albumin 2.9 g/dL (3.4-5.0) Albumin/Globulin Ratio 0.9 (1.0-1.7) Test 07/04/17 07:03 07/04/17 08:50 07/04/17 11:56 07/04/17 16:33 Glucose (Fingerstick) 187 mg/dL (70-99) 192 mg/dL (70-99) 234 mg/dL (70-99) Prothrombin Time 13.7 SEC (11.7-14.0) Prothromb Time International Ratio 1.1 (0.8-1.1) Test 07/04/17 21:15 07/04/17 21:50 07/04/17 22:30 07/05/17 04:45 Glucose (Fingerstick) 239 mg/dL (70-99) Lactic Acid Level 1.2 mmol/L (0.4-2.0) Urine Collection Type Unknown Urine Color Liliana Urine Clarity Clear Urine pH 5.5 Urine Specific [place] 1.020 Urine Protein 30 mg/dL (NEG-TRACE) Urine Glucose (UA) Negative mg/dL (NEG) Urine Ketones (Stick) Negative mg/dL (NEG) Urine Blood Large (NEG) Urine Nitrite Negative (NEG) Urine Bilirubin Negative (NEG) Urine Urobilinogen Dipstick 0.2 mg/dL (0.2 mg/dL) Urine Leukocyte Esterase Small (NEG) Urine RBC >40 /HPF (0-2) Urine WBC Occ /HPF (0-4) Urine Bacteria 0 /HPF (0-FEW) Urine Mucus Slight /LPF White Blood Count 0.8 x10^3/uL (4.0-11.0) Red Blood Count 2.27 x10^6/uL (4.30-5.70) Hemoglobin 7.3 g/dL (13.0-17.5) Hematocrit 21.1 % (39.0-53.0) Mean Corpuscular Volume 93 fL (79-100) Mean Corpuscular Hemoglobin 32 pg (25-35) Mean Corpuscular Hemoglobin Concent 35 g/dL (31-37) Red Cell Distribution Width 16.6 % (11.5-14.5) Platelet Count 24 x10^3/uL (140-400) Neutrophils (%) (Auto) 79 % (31-73) Lymphocytes (%) (Auto) 14 % (24-48) Monocytes (%) (Auto) 1 % (0-9) Eosinophils (%) (Auto) 5 % (0-3) Basophils (%) (Auto) 1 % (0-3) Neutrophils # (Auto) 0.6 x10^3uL (1.8-7.7) Lymphocytes # (Auto) 0.1 x10^3/uL (1.0-4.8) Monocytes # (Auto) 0.0 x10^3/uL (0.0-1.1) Eosinophils # (Auto) 0.0 x10^3/uL (0.0-0.7) Basophils # (Auto) 0.0 x10^3/uL (0.0-0.2) Reticulocyte Count (auto) 0.4 % (0.5-2.5) Test 07/05/17 07:57 07/05/17 11:50 Glucose (Fingerstick) 232 mg/dL (70-99) 191 mg/dL (70-99) Laboratory Tests Test 07/04/17 16:33 07/04/17 21:15 07/04/17 21:50 07/04/17 22:30 Glucose (Fingerstick) 234 mg/dL (70-99) 239 mg/dL (70-99) Lactic Acid Level 1.2 mmol/L (0.4-2.0) Urine Collection Type Unknown Urine Color Liliana Urine Clarity Clear Urine pH 5.5 Urine Specific [place] 1.020 Urine Protein 30 mg/dL (NEG-TRACE) Urine Glucose (UA) Negative mg/dL (NEG) Urine Ketones (Stick) Negative mg/dL (NEG) Urine Blood Large (NEG) Urine Nitrite Negative (NEG) Urine Bilirubin Negative (NEG) Urine Urobilinogen Dipstick 0.2 mg/dL (0.2 mg/dL) Urine Leukocyte Esterase Small (NEG) Urine RBC >40 /HPF (0-2) Urine WBC Occ /HPF (0-4) Urine Bacteria 0 /HPF (0-FEW) Urine Mucus Slight /LPF Test 07/05/17 04:45 07/05/17 07:57 07/05/17 11:50 White Blood Count 0.8 x10^3/uL (4.0-11.0) Red Blood Count 2.27 x10^6/uL (4.30-5.70) Hemoglobin 7.3 g/dL (13.0-17.5) Hematocrit 21.1 % (39.0-53.0) Mean Corpuscular Volume 93 fL (79-100) Mean Corpuscular Hemoglobin 32 pg (25-35) Mean Corpuscular Hemoglobin Concent 35 g/dL (31-37) Red Cell Distribution Width 16.6 % (11.5-14.5) Platelet Count 24 x10^3/uL (140-400) Neutrophils (%) (Auto) 79 % (31-73) Lymphocytes (%) (Auto) 14 % (24-48) Monocytes (%) (Auto) 1 % (0-9) Eosinophils (%) (Auto) 5 % (0-3) Basophils (%) (Auto) 1 % (0-3) Neutrophils # (Auto) 0.6 x10^3uL (1.8-7.7) Lymphocytes # (Auto) 0.1 x10^3/uL (1.0-4.8) Monocytes # (Auto) 0.0 x10^3/uL (0.0-1.1) Eosinophils # (Auto) 0.0 x10^3/uL (0.0-0.7) Basophils # (Auto) 0.0 x10^3/uL (0.0-0.2) Reticulocyte Count (auto) 0.4 % (0.5-2.5) Glucose (Fingerstick) 232 mg/dL (70-99) 191 mg/dL (70-99) Microbiology 07/02/17 Blood Culture - Preliminary, Resulted NO GROWTH AFTER 3 DAYS Medications Current Medications Albuterol/ Ipratropium (Duoneb) 3 ml 1X ONCE NEB Last administered on t 09:32; Start 07/02/17 at 09:30; Stop 07/02/17 at 09:31; Status DC Diphenhydramine HCl (Benadryl Oral Elixir) 12.5 mg 1X PRN PRN PO PRE- TRANSFUSION; Start 07/02/17 at 10:30 Pneumococcal Polyvalent Vaccine (Do NOT chart on this placeholder) 1 each 1X ONCE MC ; Start 07/02/17 at 13:45; Stop 07/02/17 at 13:46; Status UNV Potassium Chloride (Klor-Con) 40 meq 1X ONCE PO ; Start 07/02/17 at 14:00; Stop 07/02/17 at 15:29; Status DC Acetaminophen (Tylenol) 650 mg PRN Q6HRS PRN PO FEVER Last administered on 03:10; Start 07/02/17 at 14:00 Ondansetron HCl (Zofran) 4 mg PRN Q6HRS PRN IV NAUSEA/VOMITING Last administered on 07/04/17 17:30; Start 07/02/17 at 14:00 Morphine Sulfate 2 mg PRN Q2HR PRN IV PAIN; Start 07/02/17 at 14:00 Tramadol HCl (Ultram) 50 mg PRN Q6HRS PRN PO PAIN Last administered on 20:29; Start 07/02/17 at 14:00 Hydralazine HCl (Apresoline Inj) 10 mg PRN Q4HRS PRN IVP ELEVATED BP, SEE COMMENTS; Start 07/02/17 at 14:00 Docusate Sodium (Colace) 100 mg PRN DAILY PRN PO CONSTIPATION; Start 07/02/17 at 14:00 Allopurinol (Zyloprim) 100 mg DAILY PO Last administered on 07/04/17 10:17; Start 07/03/17 at 09:00 Alprazolam (Xanax) 0.5 mg BID PRN PO ANXIETY / AGITATION Last administered on 07/02/17 20:28; Start 07/02/17 at 14:00 Atorvastatin Calcium (Lipitor) 20 mg HS PO Last administered on 07/04/17 20: 03; Start 07/02/17 at 21:00 Bisacodyl (Dulcolax Supp) 10 mg PRN DAILY PRN RC CONSTIPATION; Start 07/02/17 at 14:00 Vitamin D (Vitamin D3) 1,000 unit DAILY PO Last administered on 07/04/17 10: 17; Start 07/03/17 at 09:00 Finasteride (Proscar) 5 mg DAILY PO Last administered on 07/04/17 10:17; Start 07/03/17 at 09:00 Losartan Potassium (Cozaar) 25 mg DAILY PO ; Start 07/03/17 at 09:00; Stop at 09:00; Status DC Mirtazapine (Remeron) 15 mg QHS PO Last administered on 07/04/17 20:03; Start 07/02/17 at 21:00 Nystatin (Nystop) 1 bridgette BID TP Last administered on 07/05/17 09:33; Start at 21:00 Potassium Chloride (Klor-Con) 20 meq DAILYWBKFT PO Last administered on 10:17; Start 07/03/17 at 08:00 Prednisone (Prednisone) 5 mg DAILY PO Last administered on 07/04/17 10:16; Start 07/03/17 at 09:00 Tamsulosin HCl (Flomax) 0.4 mg HS PO Last administered on 07/04/17 20:03; Start 07/02/17 at 21:00 Trazodone HCl (Desyrel) 75 mg HS PO Last administered on 07/04/17 20:03; Start 07/02/17 at 21:00 Verapamil HCl (Calan Sr) 360 mg DAILY PO Last administered on 07/04/17 10:17 ; Start 07/03/17 at 09:00 Venlafaxine HCl (Effexor Xr) 75 mg DAILY PO Last administered on 07/04/17 10: 18; Start 07/03/17 at 09:00 Insulin Aspart (NovoLOG) 0-9 UNITS TIDWMEALS SQ Last administered on 09:45; Start 07/02/17 at 17:00 Dextrose (Dextrose 50%-Water Syringe) 12.5 gm PRN Q15MIN PRN IV SEE COMMENTS; Start 07/02/17 at 14:15 Nystatin (Nystop) 1 bridgette BID TP ; Start 07/02/17 at 21:00; Stop 07/02/17 at 21: 00; Status DC Potassium Chloride (KCl Oral Soln) 40 meq 1X ONCE PO Last administered on 17:33; Start 07/02/17 at 15:30; Stop 07/02/17 at 15:35; Status DC Cyanocobalamin (Vitamin B-12) 1,000 mcg DAILY IM Last administered on 09:34; Start 07/04/17 at 09:00; Stop 07/11/17 at 08:59 Cefepime HCl 2 gm/ Dextrose 100 ml @ 200 mls/hr Q8HRS IV ; Start 07/04/17 at 22:00; Status UNV Cefepime HCl (Maxipime) 2 gm Q8HRS IVP Last administered on 07/05/17 05:49; Start 07/04/17 at 22:00 Sodium Chloride 1,000 ml @ 500 mls/hr Q2H IV Last administered on 07/04/17 21:50; Start 07/04/17 at 21:45; Stop 07/04/17 at 22:30; Status DC Sodium Chloride 1,000 ml @ 600 mls/hr Q1H40M IV Last administered on 05:49; Start 07/05/17 at 00:00; Stop 07/05/17 at 06:00; Status DC Sodium Chloride 1,000 ml @ 500 mls/hr 1X ONCE IV Last administered on 22:35; Start 07/04/17 at 22:00; Stop 07/04/17 at 23:59; Status DC Lorazepam (Ativan Intensol) 2 mg PRN Q2HR PRN SL ANXIETY / AGITATION; Start at 10:30 Active Scripts Active Verapamil Er (Verapamil Hcl) 180 Mg Tablet.er 360 Mg PO DAILY Cozaar (Losartan Potassium) 25 Mg Tablet 25 Mg PO DAILY Klor-Con M20 (Potassium Chloride) 20 Meq Tab.er.prt 20 Meq PO DAILYWBKFT Furosemide 40 Mg Tablet 40 Mg PO DAILY Reported Proventil Hfa Inhaler (Albuterol Sulfate) 6.7 Gm Hfa.aer.ad 2 Puff IH PRN Q4HRS PRN Trazodone Hcl 50 Mg Tablet 75 Mg PO HS Prednisone 10 Mg Tablet 5 Mg PO DAILY Venlafaxine Hcl Er (Venlafaxine Hcl) 75 Mg Cap.er.24h 75 Cap PO DAILY Milk Of Magnesia (Magnesium Hydroxide) 2,400 Mg/10 Ml Oral.susp 1,200 Mg PO Alprazolam 0.5 Mg Tablet 1 Tab PO TID Allopurinol 100 Mg Tablet 1 Tab PO DAILY Nystatin-Triamcinolone Cream (Nystatin/Triamcin) 15 Gm Cream..g. 1 Bridgette TP BID Calmoseptine Ointment (Menthol/Zinc Oxide) 3.5 Gm Oint.pack 3.5 Gm TP BID Tylenol (Acetaminophen) 325 Mg Tablet 650 Mg PO Q6HRS PRN Furosemide 20 Mg Tablet 1 Tab PO DAILY16 Metolazone 2.5 Mg Tablet 2.5 Mg PO DAILY Novolog Flexpen (Insulin Aspart) 100 Unit/1 Ml Insuln.pen 15 Unit SQ TIDWMEALS Alprazolam 0.5 Mg Tablet 0.5 Mg PO BID PRN Vitamin D3 (Cholecalciferol (Vitamin D3)) 1,000 Unit Tablet 1,000 Unit PO DAILY Imodium Multi-Symptom Rel Cplt (Loperamide Hcl/Simethicone) 1 Each Tablet 1 Each PO PRN BID PRN Metformin Hcl 1,000 Mg Tablet 1,000 Mg PO BID Azathioprine 50 Mg Tablet 100 Mg PO BID Remeron (Mirtazapine) 15 Mg Tablet 1 Tab PO QHS Meloxicam 15 Mg Tablet 1 Tab PO DAILY Dulcolax (Bisacodyl) 10 Mg Supp.rect 10 Mg RC PRN DAILY PRN Nystatin 15 Gm Powder 1 Bridgette TP BID Levemir Flextouch (Insulin Detemir) 100 Unit/1 Ml Insuln.pen 75 Unit SQ HS Tamsulosin Hcl 0.4 Mg Cap.er.24h 0.4 Mg PO HS Atorvastatin Calcium 20 Mg Tablet 20 Mg PO HS Finasteride 5 Mg Tablet 5 Mg PO DAILY Vitals/I & O Vital Sign - Last 24 Hours 07/04/17 07/04/17 07/04/17 07/04/17 12:45 13:00 13:48 14:00 Temp 97.6 97.8 97.6 98.1 97.6 97.8 97.6 98.1 Pulse 80 81 87 88 Resp 20 18 18 16 B/P (MAP) 108/47 120/57 100/55 115/49 07/04/17 07/04/17 07/04/17 07/04/17 15:00 15:00 19:15 19:25 Temp 98.1 97.6 101.0 98.1 97.6 101.0 Pulse 89 90 87 Resp 18 18 19 B/P (MAP) 109/52 (71) 109/51 122/99 (107) Pulse Ox 92 96 O2 Delivery Nasal Cannula Nasal Cannula Nasal Cannula O2 Flow Rate 2.0 2.0 2.0 07/04/17 07/05/17 07/05/17 07/05/17 22:49 00:18 03:10 07:00 Temp 101.9 98.3 102.7 100.8 101.9 98.3 102.7 100.8 Pulse 92 67 83 Resp 25 20 18 B/P (MAP) 109/42 (64) 145/92 (109) 119/37 (64) Pulse Ox 99 96 100 O2 Delivery Nasal Cannula Nasal Cannula Nasal Cannula O2 Flow Rate 2.0 2.0 2.0 07/05/17 07/05/17 08:00 09:00 Pulse 83 B/P (MAP) 119/37 O2 Delivery Nasal Cannula O2 Flow Rate 2.0 Intake and Output 07/04/17 07/04/17 07/05/17 15:00 23:00 07:00 Intake Total 340 ml 380 ml 4210 ml Output Total 1200 ml 650 ml Balance 340 ml -820 ml 3560 ml DEBBY MANN MD Jul 05, 2017 12:27
[2017-07-05 15:00] VITALS: BP 146/95
[2017-07-05 18:34] VITALS: BP 99/42
[2017-07-05] MEDS ORDERED: VANCOMYCIN PER PHARMACY MC PRN (18:45)
[2017-07-05] MEDS ORDERED: VANCOMYCIN 2 GM in IV DEXTROSE 5% 500 ML IV ONE (19:00)
[2017-07-05] MEDS: TAMSULOSIN 0.4 MG CAP.ER.24H. PO SCH (21:02)
[2017-07-05] MEDS: MIRTAZAPINE 15 MG TABLET PO SCH (21:02)
[2017-07-05] MEDS: traZODone 50 MG TABLET. PO SCH (21:02)
[2017-07-05] MEDS: ATORVASTATIN CALCIUM 20 MG TABLET PO SCH (21:09)
[2017-07-05 22:37] VITALS: BP 107/59
[2017-07-06 02:37] VITALS: BP 102/59
[2017-07-06 06:16] VITALS: BP 120/53
[2017-07-06] MEDS: CEFEPIME HCL IV Push 2 GM VIAL. IVP SCH (06:16)
[2017-07-06] MEDS: INSULIN ASPART 300 UNITS/3 ML INSULN.PEN SQ SCH (08:00)
[2017-07-06] MEDS: POTASSIUM CHLORIDE 20 MEQ TABLET.ER. PO SCH (08:00)
[2017-07-06] MEDS: CHOLECALCIFEROL (VITAMIN D3) 1,000 UNIT TABLET PO SCH (09:00)
[2017-07-06] MEDS: predniSONE 10 MG TABLET PO SCH (09:00)
[2017-07-06] MEDS: ALLOPURINOL 100 MG TABLET. PO SCH (09:00)
[2017-07-06] MEDS: FINASTERIDE 5 MG TABLET. PO SCH (09:00)
[2017-07-06] MEDS: VERAPAMIL SR 180 MG TABLET.ER. PO SCH (09:00)
[2017-07-06] MEDS: VENLAFAXINE XR 37.5 MG CAP.ER.24H. PO SCH (09:00)
[2017-07-06] MEDS: CYANOCOBALAMIN (VITAMIN B-12) 1,000 MCG/ML VIAL IM SCH (09:00)
[2017-07-06] MEDS: NYSTATIN TOPICAL POWDER 15GM BOTTLE. TP SCH (09:00)
[2017-07-06] MEDS ORDERED: VANCOMYCIN 1.75 GM in IV DEXTROSE 5% 500 ML IV SCH (13:00)
--- NOTE | 2017-07-31 23:54 | PDOC3 ---
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 Lee is a 81 old fever last night, started cefepime for neutropenic fever, family is leaning to hospice, pt has refused some priro and current treatments onco consult following, DC imuran PRBC transfusion today, again PTOT is now DNR, DC tele, plan hospice at DC Discharge Information Condition at Discharge: Improved Follow Up: Weeks Disposition/Orders: D/C to Another Facility Scheduled Allopurinol (Allopurinol), 1 TAB PO DAILY, (Reported) Alprazolam (Alprazolam), 1 TAB PO TID, (Reported) Atorvastatin Calcium (Atorvastatin Calcium), 20 MG PO HS, (Reported) Azathioprine (Azathioprine), 100 MG PO BID, (Reported) Cholecalciferol (Vitamin D3) (Vitamin D3), 1,000 UNIT PO DAILY, (Reported) Finasteride (Finasteride), 5 MG PO DAILY, (Reported) Furosemide (Furosemide), 1 TAB PO DAILY16, (Reported) Insulin Aspart (Novolog Flexpen), 15 UNIT SQ TIDWMEALS, (Reported) Insulin Detemir (Levemir Flextouch), 75 UNIT SQ HS, (Reported) Losartan Potassium (Cozaar), 25 MG PO DAILY Meloxicam (Meloxicam), 1 TAB PO DAILY, (Reported) Menthol/Zinc Oxide (Calmoseptine Ointment), 3.5 GM TP BID, (Reported) Metformin Hcl (Metformin Hcl), 1,000 MG PO BID, (Reported) Metolazone (Metolazone), 2.5 MG PO DAILY, (Reported) Mirtazapine (Remeron), 1 TAB PO QHS, (Reported) Nystatin (Nystatin), 1 AFIA TP BID, (Reported) Nystatin/Triamcin (Nystatin-Triamcinolone Cream), 1 AFIA TP BID, (Reported) Potassium Chloride (Klor-Con M20), 20 MEQ PO DAILYWBKFT Prednisone (Prednisone), 5 MG PO DAILY, (Reported) Tamsulosin Hcl (Tamsulosin Hcl), 0.4 MG PO HS, (Reported) Trazodone Hcl (Trazodone Hcl), 75 MG PO HS, (Reported) Venlafaxine Hcl (Venlafaxine Hcl Er), 75 CAP PO DAILY, (Reported) Verapamil Hcl (Verapamil Er), 360 MG PO DAILY Scheduled PRN Acetaminophen (Tylenol), 650 MG PO Q6HRS PRN for PAIN, (Reported) Albuterol Sulfate (Proventil Hfa Inhaler), 2 PUFF IH PRN Q4HRS PRN for FOR ASTHMA, (Reported) Bisacodyl (Dulcolax), 10 MG RC PRN DAILY PRN for CONSTIPATION, (Reported) Loperamide Hcl/Simethicone (Imodium Multi-Symptom Rel Cplt), 1 EACH PO PRN BID PRN for DIARRHEA, (Reported) Miscellaneous Medications Magnesium Hydroxide (Milk Of Magnesia), 1,200 MG PO, (Reported) Patient Instructions Patient Instructions [facility] inpatient > 30 min NICANOR DE OLIVEIRA MD Jul 31, 2017 23:53
== END 2017-07-06 11:00 | disposition hospice, inpatient (51) | DRG 808 ==
LOC: ER 09:12 → 2 SOUTH 10:15
PROVIDERS: ADMIT Internal Medicine; ATTEND Internal Medicine
PROC: 30233N1 Transfusion of Nonautologous Red Blood Cells into Peripheral Vein, Percutaneous Approach (ICD-10-PCS; principal; 2017-07-02)
DX: D61.811 Other drug-induced pancytopenia (principal); N17.0 Acute kidney failure with tubular necrosis; E44.1 Mild protein-calorie malnutrition; I13.0 Hypertensive heart and chronic kidney disease with heart failure and stage 1 through stage 4 chronic kidney disease, or unspecified chronic kidney disease; D63.8 Anemia in other chronic diseases classified elsewhere; E11.22 Type 2 diabetes mellitus with diabetic chronic kidney disease; E53.8 Deficiency of other specified B group vitamins; E78.5 Hyperlipidemia, unspecified; E87.6 Hypokalemia; F01.50 Vascular dementia, unspecified severity, without behavioral disturbance, psychotic disturbance, mood disturbance, and anxiety; F32.9 Major depressive disorder, single episode, unspecified; G70.00 Myasthenia gravis without (acute) exacerbation; I25.10 Atherosclerotic heart disease of native coronary artery without angina pectoris; I50.9 Heart failure, unspecified; K21.9 Gastro-esophageal reflux disease without esophagitis; L89.90 Pressure ulcer of unspecified site, unspecified stage; M06.9 Rheumatoid arthritis, unspecified; N18.3 Chronic kidney disease, stage 3 (moderate); N40.0 Benign prostatic hyperplasia without lower urinary tract symptoms; R50.81 Fever presenting with conditions classified elsewhere; Z96.659 Presence of unspecified artificial knee joint; F41.9 Anxiety disorder, unspecified; M19.90 Unspecified osteoarthritis, unspecified site; T45.1X5A Adverse effect of antineoplastic and immunosuppressive drugs, initial encounter; Z51.5 Encounter for palliative care; Z66 Do not resuscitate; Z79.4 Long term (current) use of insulin; Z82.0 Family history of epilepsy and other diseases of the nervous system; Z82.49 Family history of ischemic heart disease and other diseases of the circulatory system; Z83.3 Family history of diabetes mellitus; Z86.73 Personal history of transient ischemic attack (TIA), and cerebral infarction without residual deficits; Z87.440 Personal history of urinary (tract) infections
CPT/HCPCS: 36415; 71010; 80048; 80053; 81001; 82274; 82607; 82728; 82746; 82962; 83540; 83550; 83605; 83880; 85007; 85018; 85025; 85045; 85610; 86850; 86900; 86901; 86920; 87040; 87205; 87641; 93005; 94640; G0103; J0692; J1815; J2405; J3370; J3420; J7030; J7512; J7620; P9016; 99285-25